=== PATIENT | male | born 1960 | race Caucasian/White ===

== ENCOUNTER → 2018-05-28 10:10 | Outpatient (CLI) | payer OTHER, MEDICAID, SELFPAY ==
--- NOTE | 2018-05-28 10:23 | DI.CT.S_ITS ---
PROCEDURE: CT ABDOMEN PELVIS WO/W CON INDICATIONS: BLADDER CANCER TECHNIQUE: After the administration of oral contrast, 5 mm thick sections acquired from the diaphragms to the iliac crests. After the administration of intravenous contrast, 5 mm thick sections acquired from the diaphragms to the symphysis. 5 mm thick coronal and sagittal reformats were acquired. For radiation dose reduction, the following was used: automated exposure control, adjustment of mA and/or kV according to patient size. COMPARISON: None. FINDINGS: Image quality: Excellent. ABDOMEN: Lung bases: Lung bases are clear. Heart size is normal. Solid organs: Liver is normal in size and enhancement. Gallbladder is unremarkable. Biliary system is non-dilated. Pancreas enhances normally. Spleen is normal in size and enhancement. No adrenal nodules. Both kidneys are normal in size. No hydronephrosis or nephrolithiasis. Low-density cystic lesions are present within the bilateral kidneys. Bowel and peritoneum: Stomach, small and large bowel loops are normal in caliber and wall thickness. The appendix is not visualized; however there is no discrete right lower quadrant fluid or fat stranding to suggest acute appendicitis. There are scattered sigmoid diverticula. No evidence for diverticulitis. No free fluid or air. Nodes and vessels: No retroperitoneal or mesenteric adenopathy by size criteria. Aorta and inferior vena are normal in caliber. There are scattered atheromatous calcifications throughout the aorta and iliac arteries bilaterally. Miscellaneous: No ventral hernias. PELVIS: Genitourinary: Bladder wall thickness is normal. Miscellaneous: No inguinal hernias or adenopathy. Surgical clips are present at the right inguinal region. Bones: No suspicious bony lesions. No vertebral body compression fractures. IMPRESSION: 1. Normal bladder wall thickness. No bladder mass lesions to suggest tumor recurrence. 2. No findings to suggest distant metastasis. 3. Diverticulosis. No diverticulitis. Dictated by: Ora Leahy M.D. on 05/28/2018 at 11:00 Approved by: Ora Leahy M.D. on 05/28/2018 at 11:05
== END ==
PROVIDERS: PCP Family Medicine; Visit Provider Urology
DX: C67.9 Malignant neoplasm of bladder, unspecified (principal); K57.30 Diverticulosis of large intestine without perforation or abscess without bleeding
CPT/HCPCS: 74178; Q9967

== ENCOUNTER → 2019-08-14 14:10 | Outpatient (CLI) | payer MEDICARE, MEDICAID, SELFPAY ==
--- NOTE | 2019-08-14 | DI.CT.S_ITS ---
PROCEDURE: CT ABDOMEN PELVIS WO/W CON INDICATIONS: HISTORY OF BLADDER CANCER TECHNIQUE: Optional 5 mm thick noncontrast images acquired from the diaphragm to the symphysis pubis. After the administration of intravenous contrast, 5 mm thick images acquired from the diaphragm to the symphysis pubis after a 10-minute delay. 2 mm thick coronal and sagittal reformats were then performed of the kidneys and ureters. For radiation dose reduction, the following was used: automated exposure control, adjustment of mA and/or kV according to patient size. COMPARISON: [facility], CT, CT ABDOMEN PELVIS WO/W CON, 05/28/2018, 10:16. FINDINGS: Image quality: Excellent. Lung bases: Lung bases are clear. Heart size is normal. Coronary artery calcifications. Urinary system: Both kidneys are normal in size, without hydronephrosis or nephrolithiasis on pre-contrast images. There is normal bilateral renal enhancement. No solid mass. Multiple simple renal cysts bilaterally. Large right peripelvic cyst measuring 6.2 cm. Renal calyces appear normal in morphology when filled with contrast. No ureteral filling defect identified within the opacified portions. The left ureter is asymmetrically larger compared to the right and the distal left ureter is attenuated, (5/103). There is a multi-loculated fluid collection in the presacral space posterior to the rectosigmoid junction measuring 4 x 2.4 x 1.6 cm, (6/39 and 3/161). There is a small amount of fluid at the posterior base of the bladder anterior to the colon, (6/37). The adjacent fat plane is effaced. Left base the bladder is thickened. These findings are new compared to the CT 05/28/2018. No bladder stone. No air in the urinary bladder. Other solid organs: Liver is normal in size. Subcentimeter hypodensities in the right lobe most likely a benign cyst or hemangioma. Question of hepatic steatosis. Gallbladder is unremarkable. Biliary system is non dilated. Pancreas enhances normally. Spleen is normal in size and enhancement. No adrenal nodules. Peritoneum and bowel: There is abnormal thickening of the upper rectum/sigmoid colon. Small adjacent diverticular abscess as described above. Moderate colonic diverticulosis. Nodes and vessels: No retroperitoneal or mesenteric adenopathy by size criteria. Aorta and inferior vena cava are normal in size. Abdominal wall: No ventral hernias. Pelvis: No pathologic free pelvic fluid. No inguinal hernias or adenopathy. Surgical clips in the right inguinal region. Trace left hydrocele seen. Bones: No suspicious bony lesions. No vertebral body compression fractures. IMPRESSION: 1. Multiloculated fluid collection adjacent to sigmoid colon diverticulitis concerning for abscess. Recommend followup colonoscopy when inflammatory changes decreased to exclude underlying mass. 2. The area of inflammation/fluid extends to the left base of the urinary bladder and the distal left ureter is attenuated. Dictated by: Sulaiman Gibson M.D. on 08/14/2019 at 15:00 Approved by: Sulaiman Gibson M.D. on 08/14/2019 at 15:18
== END ==
PROVIDERS: PCP Family Medicine; Visit Provider Urology
DX: Z08 Encounter for follow-up examination after completed treatment for malignant neoplasm (principal); Z85.51 Personal history of malignant neoplasm of bladder; I25.10 Atherosclerotic heart disease of native coronary artery without angina pectoris; N28.1 Cyst of kidney, acquired; K57.32 Diverticulitis of large intestine without perforation or abscess without bleeding
CPT/HCPCS: 74178; Q9967

== ENCOUNTER 2019-09-14 14:04 | Emergency (ER) | payer MEDICARE, MEDICAID, SELFPAY ==
[2019-09-14 14:25] VITALS: BP 167/109; PULSE 77; RESP 16; TEMP 37.1; O2SAT 98
[2019-09-14 14:38] LABS: Add Manual Diff / Slide Review NO; Basophils Absolute Auto 100 /uL (0-100); Basophils Percent Auto 0.6 % (0-2); Eosinophils Absolute Auto 100 /uL (0-450); Eosinophils Percent Auto 0.6 % (2-4); Hematocrit 42.1 % (41-53); Hemoglobin 14.1 g/dL (13.5-17.5); Lymphocytes Absolute Auto 2200 /uL (1100-4500); Lymphocytes Percent Auto 15.9 % (25-40); Mean Corpuscular HGB Conc 33.6 % (30-36); Mean Corpuscular Hemoglobin 28.5 PG (26-34); Mean Corpuscular Volume 84.9 fL (80-100); Monocytes Absolute Auto 1400 /uL (0-900); Monocytes Percent Auto 10.2 % (3-14); Neutrophils Absolute Auto 10100 /uL (1500-7000); Neutrophils Percent Auto 72.7 % (50-75); Platelet Count 229 X10^3/uL (150-400); Red Blood Cell Count 4.96 X10^6/uL (4.5-5.9); White Blood Cell Count 13.9 X10^3/uL (4.5-11.0)
[2019-09-14 14:49] LABS: Alanine Aminotransferase 14 IU/L (<50); Albumin 4.4 g/dL (3.5-5.0); Albumin Globulin Ratio 1.5 (1.0-2.8); Alkaline Phosphatase 72 U/L (38-126); Aspartate Aminotransferase 17 IU/L (17-59); BUN Creatinine Ratio 12.2 (6-22); Bilirubin Total 1.1 mg/dL (0.2-1.3); Blood Urea Nitrogen 11 mg/dL (9-20); Calcium 9.6 mg/dL (8.4-10.2); Carbon Dioxide 26 mmol/L (22-32); Chloride 103 mmol/L (98-107); Estimated Glomerular Filt Rate > 60.0 mL/min (>60); Globulin 2.9 g/dL (1.7-4.1); Glucose 97 mg/dL (70-100); HEMOLYSIS < 15 (0-50); Sodium 139 mmol/L (137-145); Total Protein 7.3 g/dL (6.3-8.2)
[2019-09-14 15:01] LABS: Bacteria Urine None Seen; WBC Urine None Seen (0-5/HPF)
--- NOTE | 2019-09-14 15:03 | DI.CT.S_ITS ---
PROCEDURE: CT ABDOMEN PELVIS W CON INDICATIONS: severe pelvic pain, hx diverticulitis, possible fistula TECHNIQUE: After the administration of oral and intravenous contrast, 5 mm thick sections acquired from the diaphragms to the symphysis. 5 mm thick coronal and sagittal reformats were performed. For radiation dose reduction, the following was used: automated exposure control, adjustment of mA and/or kV according to patient size. COMPARISON: [facility], CT, CT ABDOMEN PELVIS WO/W CON, 08/14/2019, 14:14. [facility], CT, CT ABDOMEN PELVIS WO/W CON, 05/28/2018, 10:16. [facility], CT, CT ABD PELVIS W&WO CON IVP, 04/18/2017, 9:21. [facility], CT, CT ABD PELVIS W&WO CON IVP, 04/27/2016, 9:24. FINDINGS: Image quality: Diagnostic. ABDOMEN: Lung bases: Lung bases are clear. Heart size is normal. Solid organs: The liver, spleen, pancreas, adrenals, and kidneys are unchanged. Cysts involving the right kidney are noted. The gallbladder is somewhat distended. Peritoneum and bowel: The stomach is unremarkable. The small bowel loops are nondilated. However, there is prominent thickening involving the wall of several small bowel loops within the mid abdomen at the level of the umbilicus with prominent edema within the adjacent mesentery. There continues to be markedly well thickening of the sigmoid colon with prominent edema within the adjacent soft tissues. The previously noted small loculated fluid collection within the presacral space along the superior aspect of the sigmoid colon probably has not significantly changed in size and measures approximately 2.3 x 1.9 x 2.5 cm. Extensive colonic diverticulosis is evident. Large amount of residual stool is seen within the more proximal aspects of the colon. No definite new loculated fluid collections are appreciated. Nodes and vessels: No retroperitoneal or mesenteric adenopathy. Aorta and inferior vena cava are normal in caliber. There is aortic and iliac artery atherosclerosis. Bones: No acute fracture or suspicious osseous lesion is identified. Moderate degenerative changes of the lumbar spine are present. PELVIS: Soft tissues: Mild wall thickening of the urinary bladder is incidentally noted, particularly near the fundal portion of the bladder. Edema is evident within the mesentery of the pelvis. There may be a small amount of free fluid. The small loculated fluid collection within the presacral space as described above and is similar to the prior study. No pelvic adenopathy is identified. However, reactive lymph nodes are present. Bones: No suspicious bony lesions. No acute pelvic fractures are identified. [id number] degenerative changes of the pelvic joints are noted. IMPRESSION: 1. Pronounced sigmoid diverticulitis is similar to the previous examination. When clinically appropriate, colonoscopy is recommended to exclude an underlying neoplasm of the colon. 2. Small loculated fluid collection adjacent to the sigmoid colon is similar in size and remains suspicious for a small abscess. No new fluid collections. Given its location within the pelvis, this would not be amenable to percutaneous aspiration. 3. Extensive mesenteric edema probably represents inflammation related to sigmoid diverticulitis. 4. Prominent wall thickening involving small bowel loops within the abdomen and pelvis at the level of the umbilicus is new since the prior study and suspicious for reactive enteritis. The possibility of a small fistula within this region cannot be excluded. 5. Constipation. 6. Wall thickening of the urinary bladder probably is reactive to inflammation of the abdomen and pelvis. Dictated by: Carlos A Barrios M.D. on 09/14/2019 at 14:36 Approved by: Carlos A Barrios M.D. on 09/14/2019 at 14:44
[2019-09-14 15:08] LABS: Culture Indicated Urine Cult Not Indicated; RBC Urine 1-5/HPF (0-5/HPF)
[2019-09-14] MEDS: levoFLOXacin 500 MG/100 ML PIGGYBACK 100 MG IV (15:20)
[2019-09-14] MEDS: SODIUM CHLORIDE 0.9% 1,000 ML 1000 ML IV (15:20)
[2019-09-14] MEDS: HYDROMORPHONE 0.5 MG INJ IV (15:20)
--- NOTE | 2019-09-14 15:55 | ED.ABDPAIN ---
HPI - Abdominal Pain General Chief Complaint: Abdominal Pain Stated Complaint: diverticulitis Time Seen by Provider: 09/14/19 14:05 Source: patient Mode of arrival: Ambulatory Limitations: no limitations History of Present Illness HPI narrative: 58-year-old male daily smoker with extensive history diverticulitis and remote history of bladder cancer presents with lower abdominal discomfort worsening over the past few days consistent with prior episodes of diverticulitis. He was recently seen for a scheduled outpatient follow-up with Urology whom did a cystoscopy and noted some abnormal texture to his bladder wall, a scan was ordered and he was then referred to general surgery. He was noted to have extensive diverticulitis and a fluid collection which may be a small abscess. He had been on antibiotics and doing largely well until a few days ago. He denies any fever chills, states his pain is worse with motion and improves with rest. He is tolerating food and drink without significant difficulty. MD complaint: abdominal pain Onset (ago): day(s) Pain Consistency: constant Location: suprapubic Severity: moderate Quality: cramping Radiation: none Migration to: no migration Exacerbating factors: movement Associated symptoms: denies other symptoms Related Data Previous Rx's Medication Instructions Recorded atorvastatin [Lipitor] 80 mg PO HS #90 tabs 05/12/17 lisinopril-hydrochlorothiazide 0 PO QDAY #45 tab 07/21/17 [Zestoretic] ciprofloxacin HCl [Cipro] 500 mg PO BID #20 tab 09/14/19 hydrocodone-acetaminophen 1 tab PO Q4-6H PRN #10 tab 09/14/19 metronidazole [Flagyl] 500 mg PO Q8H #30 tab 09/14/19 ondansetron HCl [Zofran] 4 mg PO Q6H PRN #20 tab 09/14/19 Allergies Allergy/AdvReac Type Severity Reaction Status Date / Time No Known Drug Allergies Allergy Verified 09/14/19 14:31 Review of Systems Constitutional Constitutional: Denies chills, Denies fatigue, Denies fever(s), Denies frequent falls, Denies lethargy and Denies weakness Eyes Eyes: Denies change in vision, Denies eye discharge, Denies irritation and Denies loss of vision ENT Ears, Nose, Mouth, and Throat: Denies change in voice, Denies dizziness, Denies neck pain, Denies sore throat and Denies throat swelling Cardiovascular Cardiovascular: Denies chest pain, Denies irregular heart rhythm, Denies lightheadedness, Denies palpitations, Denies dyspnea, Denies dyspnea on exertion and Denies orthopnea Respiratory Respiratory: Denies cough, Denies dyspnea, Denies dyspnea on exertion and Denies wheezing Gastrointestinal Gastrointestinal: Reports abdominal pain, Denies change in bowel habits, Denies diarrhea, Denies nausea and Denies vomiting Genitourinary Genitourinary: Denies hematuria, Denies flank pain, Denies urinary incontinence and Denies urinary urgency Musculoskeletal Musculoskeletal: Denies back pain, Denies muscle weakness, Denies neck pain, Denies numbness and Denies tingling Integumentary/Breasts Skin/Breast: Denies pruritus, Denies erythema, Denies rash and Denies wounds Neurologic Neurologic: Denies behavioral changes, Denies confusion, Denies dizziness, Denies frequent falls, Denies loss of vision, Denies numbness, Denies tingling and Denies weakness Psychiatric Psychiatric: Denies anxiety, Denies behavioral changes, Denies confusion, Denies depression, Denies homicidal ideation and Denies suicidal ideation Endocrine Endocrine: Denies fatigue, Denies flushing and Denies palpitations Hematologic/Lymphatic Hematologic/Lymphatic: Denies easy bruising Allergic/Immunologic Allergic/Immunologic: Denies urticaria, Denies throat swelling and Denies wheezing Patient History Medical History Diverticulitis (Acute) 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) Surgical History Hx of craniotomy (Acute) Status post appendectomy Status post transurethral resection of prostate Family History Brother Heart disease Hypertension High cholesterol Brother Heroin addiction Heart disease Hypertension High cholesterol Mental health problem Father Heart disease Hypertension High cholesterol Social History marital status: unknown household members: friend(s) occupational status: disabled Smoking Status: Current every day smoker alcohol intake: current substance use type: marijuana alcohol intake frequency: holidays/special occasions only Substance Use Type: marijuana Exam Narrative Exam Narrative: GENERAL: [58] year old patient appears stated age. Well-nourished, well-developed patient, in mild distress. HEAD: Atraumatic. Normocephalic. EYES: Pupils equal round and reactive. Extraocular motions intact. No scleral icterus. No injection or drainage. ENT: Nose without bleeding, purulent drainage. Throat without erythema, tonsillar hypertrophy or exudate. Airway patent. NECK: Trachea midline. Non tender CARDIOVASCULAR: Regular rate and rhythm without murmurs, gallops, or rubs. RESPIRATORY: Clear to auscultation. Breath sounds equal bilaterally. No wheezes, rales, or rhonchi. GASTROINTESTINAL: Abdomen soft, mild lower tenderness, nondistended. EXTREMITIES: No edema or joint tenderness. BACK: Nontender without deformity or crepitance. No flank tenderness. NEURO: AOx3. SKIN: No rash or erythema of visible areas Initial Vital Signs Initial Vital Signs: Vital Signs Temperature 98.7 F 09/14/19 14:25 Pulse Rate 77 09/14/19 14:25 Respiratory Rate 16 09/14/19 14:25 Blood Pressure 167/109 H 09/14/19 14:25 Pulse Oximetry 98 09/14/19 14:25 Course Course Course Narrative: CT today actually demonstrates some improvement over the last. The patient has been seen and evaluated at the bedside but General surgery (please see their note for complete details) and the plan is to treat conservatively with antibiotics and pain control with clear liquid diet as an outpatient until things calm down at which point a colonoscopy is appropriate. The patient understands the plan and is in complete agreement. He has been given return precautions and has had questions answered to his apparent satisfaction Orders Ordered: ED Orders 09/14/19 14:20 Complete Blood Count AUTO DIFF Stat Comprehensive Metabolic Panel Stat 09/14/19 14:49 Urine Microscopic Stat 09/14/19 15:03 CT abdomen pelvis w con Stat Discontinued Medications Hydrocodone Bitart/Acetaminophen (Vicodin Prepack) 1 bottle MISC SEEINSTR ONE Stop: 09/14/19 16:53 Last Admin: 09/14/19 17:06 Dose: 1 bottle Documented by: KBROTEM Hydromorphone HCl (Dilaudid) 0.5 mg IV NOW ONE Stop: 09/14/19 15:02 Last Admin: 09/14/19 15:20 Dose: 0.5 mg Documented by: KBROTEM Sodium Chloride (Normal Saline 0.9%) 1,000 mls @ 1,000 mls/hr IV BOLUS ONE Stop: 09/14/19 16:00 Last Admin: 09/14/19 15:20 Dose: 1,000 mls/hr Documented by: MICHAEL Levofloxacin (Levaquin) 500 mg in 100 mls @ 100 mls/hr IV NOW ONE Stop: 09/14/19 16:00 Last Infusion: 09/14/19 16:23 Dose: 0 mls/hr Documented by: Admin: 09/14/19 15:20 Dose: 100 mls/hr Documented by: MICHAEL Vital Signs Vital signs: Vital Signs - 8 hr 09/14/19 14:25 09/14/19 16:04 Temperature 98.7 F Pulse Rate 77 73 Respiratory Rate 16 Blood Pressure 167/109 H Blood Pressure [Left Arm] 149/97 H Pulse Oximetry 98 100 MDM - Abdominal Pain Lab Data Result diagrams: 09/14/19 14:20 09/14/19 14:20 Labs: Lab Results 09/14/19 09/14/19 09/14/19 Range/Units 14:20 14:20 14:49 WBC 13.9 H (4.5-11.0) X10^3/uL RBC 4.96 (4.5-5.9) X10^6/uL Hgb 14.1 (13.5-17.5) g/dL Hct 42.1 (41-53) % MCV 84.9 (80-100) fL MCH 28.5 (26-34) PG MCHC 33.6 (30-36) % RDW 16.0 H (11.6-14.8) % Plt Count 229 (150-400) X10^3/uL Neut % (Auto) 72.7 (50-75) % Lymph % (Auto) 15.9 L (25-40) % [place] % (Auto) 10.2 (3-14) % Eos % (Auto) 0.6 L (2-4) % Baso % (Auto) 0.6 (0-2) % Neut # (Auto) 59753 H (6430-9083) /uL Lymph # (Auto) 2200 (3971-2631) /uL [place] # (Auto) 1400 H (0-900) /uL Eos # (Auto) 100 (0-450) /uL Baso # (Auto) 100 (0-100) /uL Sodium 139 (137-145) mmol/L Potassium 4.0 (3.4-5.1) mmol/L Chloride 103 (98-107) mmol/L Carbon Dioxide 26 (22-32) mmol/L BUN 11 (9-20) mg/dL Creatinine 0.90 (0.66-1.25) mg/dL Estimated GFR > 60.0 (>60) mL/min BUN/Creatinine Ratio 12.2 (6-22) Glucose 97 (70-100) mg/dL Calcium 9.6 (8.4-10.2) mg/dL Total Bilirubin 1.1 (0.2-1.3) mg/dL AST 17 (17-59) IU/L ALT 14 (<50) IU/L Alkaline Phosphatase 72 (38-126) U/L Total Protein 7.3 (6.3-8.2) g/dL Albumin 4.4 (3.5-5.0) g/dL Globulin 2.9 (1.7-4.1) g/dL Albumin/Globulin Ratio 1.5 (1.0-2.8) Urine RBC 1-5/hpf (0-5/HPF) Urine WBC None seen (0-5/HPF) Urine Bacteria None seen (None) Ur Culture Indicated? Cult not indicated Point of care testing: Urine Dip Bedside Urine Glucose Negative Bedside Urine Bilirubin - Negative Bedside Urine Ketone - Negative Urine Specific [place] 1.010 Bedside Urine Occult Blood +/- Bedside Urine pH 6.0 Bedside Urine Protein - Negative Bedside Urine Urobilinogen - Negative Bedside Urine Nitrite - Negative Bedside Urine Leukocytes - Negative Esterase Imaging Data CT scan - abdomen: Radiologist's impression: [address] [address] [address] Scan Report Signed Patient: Francisco Garner WMR#: [id number] : [id number] Age/Sex: 58 / MDate of Service: 09/14/19 Loc: ED Accession Number: [id number] Procedure: CT abdomen pelvis w con Ordering Provider: Ricki Meier D.O. PROCEDURE: CT ABDOMEN PELVIS W CON INDICATIONS: severe pelvic pain, hx diverticulitis, possible fistula TECHNIQUE: After the administration of oral and intravenous contrast, 5 mm thick sections acquired from the diaphragms to the symphysis. 5 mm thick coronal and sagittal reformats were performed. For radiation dose reduction, the following was used: automated exposure control, adjustment of mA and/or kV according to patient size. COMPARISON: [facility], CT, CT ABDOMEN PELVIS WO/W CON, 08/14/2019, 14:14. [facility], CT, CT ABDOMEN PELVIS WO/W CON, 05/28/2018, 10:16. [facility], CT, CT ABD PELVIS W&WO CON IVP, 04/18/2017, 9:21. [facility], CT, CT ABD PELVIS W&WO CON IVP, 04/27/2016, 9:24. FINDINGS: Image quality: Diagnostic. ABDOMEN: Lung bases: Lung bases are clear. Heart size is normal. Solid organs: The liver, spleen, pancreas, adrenals, and kidneys are unchanged. Cysts involving the right kidney are noted. The gallbladder is somewhat distended. Peritoneum and bowel: The stomach is unremarkable. The small bowel loops are nondilated. However, there is prominent thickening involving the wall of several small bowel loops within the mid abdomen at the level of the umbilicus with prominent edema within the adjacent mesentery. There continues to be markedly well thickening of the sigmoid colon with prominent edema within the adjacent soft tissues. The previously noted small loculated fluid collection within the presacral space along the superior aspect of the sigmoid colon probably has not significantly changed in size and measures approximately 2.3 x 1.9 x 2.5 cm. Extensive colonic diverticulosis is evident. Large amount of residual stool is seen within the more proximal aspects of the colon. No definite new loculated fluid collections are appreciated. Nodes and vessels: No retroperitoneal or mesenteric adenopathy. Aorta and inferior vena cava are normal in caliber. There is aortic and iliac artery atherosclerosis. Bones: No acute fracture or suspicious osseous lesion is identified. Moderate degenerative changes of the lumbar spine are present. PELVIS: Soft tissues: Mild wall thickening of the urinary bladder is incidentally noted, particularly near the fundal portion of the bladder. Edema is evident within the mesentery of the pelvis. There may be a small amount of free fluid. The small loculated fluid collection within the presacral space as described above and is similar to the prior study. No pelvic adenopathy is identified. However, reactive lymph nodes are present. Bones: No suspicious bony lesions. No acute pelvic fractures are identified. [id number] degenerative changes of the pelvic joints are noted. IMPRESSION: 1. Pronounced sigmoid diverticulitis is similar to the previous examination. When clinically appropriate, colonoscopy is recommended to exclude an underlying neoplasm of the colon. 2. Small loculated fluid collection adjacent to the sigmoid colon is similar in size and remains suspicious for a small abscess. No new fluid collections. Given its location within the pelvis, this would not be amenable to percutaneous aspiration. 3. Extensive mesenteric edema probably represents inflammation related to sigmoid diverticulitis. 4. Prominent wall thickening involving small bowel loops within the abdomen and pelvis at the level of the umbilicus is new since the prior study and suspicious for reactive enteritis. The possibility of a small fistula within this region cannot be excluded. 5. Constipation. 6. Wall thickening of the urinary bladder probably is reactive to inflammation of the abdomen and pelvis. Dictated by: Carlos A Barrios M.D. on 09/14/2019 at 14:36 Approved by: Carlos A Barrios M.D. on 09/14/2019 at 14:44 Discharge Plan Departure Patient Disposition: Home Clinical Impression: Diverticulitis Discharge Date/Time: 09/14/19 17:14 Instructions: DI for Diverticulitis Activity Restrictions/Additional Instructions: 1. Drink plenty of fluids with frequent small sips. 2. For the next 24 hours a clear liquid diet is advised. After that please employ a brat diet which would include bananas, rice, apples, toast. 3. Please take medications as directed. 4. Please follow-up with your doctor in the next 1-2 days. Call the office for an appointment. 5. Please return to the emergency Department for any worsening or persistent symptoms, such as increasing pain or fever. Prescriptions: New hydrocodone-acetaminophen 5-325 mg tablet 1 tab PO Q4-6H PRN (Reason: pain) Qty: 10 RF: 0 ciprofloxacin HCl [Cipro] 500 mg tablet 500 mg PO BID Qty: 20 RF: 0 metronidazole [Flagyl] 500 mg tablet 500 mg PO Q8H Qty: 30 RF: 0 ondansetron HCl [Zofran] 4 mg tablet 4 mg PO Q6H PRN (Reason: nausea and vomiting) Qty: 20 RF: 0 No Action atorvastatin [Lipitor] 80 MG tablet 80 mg PO HS Qty: 90 RF: 1 lisinopril-hydrochlorothiazide [Zestoretic] 10 MG/12.5 MG tablet 0 PO QDAY Qty: 45 RF: 1 Referrals: Venessa Stevens MD [Physician] - Volodymyr Knight MD [Primary Care Provider] -
[2019-09-14 16:04] VITALS: BP 149/97; PULSE 73; O2SAT 100
[2019-09-14] MEDS: HYDROCODONE/ACET 5/325 PREPACK 1 BOTTLE MISC (17:06)
[2019-09-14 17:13] VITALS: BP 161/105; PULSE 65; RESP 18; O2SAT 100
== END 2019-09-14 17:14 | disposition home or self-care (01) ==
PROVIDERS: Emergency Provider Emergency Medicine; PCP Family Medicine
DX: K57.92 Diverticulitis of intestine, part unspecified, without perforation or abscess without bleeding (principal); R10.2 Pelvic and perineal pain
CPT/HCPCS: 36415; 74177; 80053; 81003; 81015; 85025; 96361; 96365; 96375; 99283; 99285; J1170; J1956; Q9967

== ENCOUNTER 2019-10-15 13:15 | Day surgery (SDC) | payer MEDICARE, MEDICAID, SELFPAY ==
[2019-10-15] MEDS: SODIUM CHLORIDE 0.9% 1,000 ML 200 ML IV (13:49)
[2019-10-15 13:52] VITALS: BP 154/99; PULSE 63; RESP 20; TEMP 36.3; O2SAT 100
[2019-10-15 13:53] VITALS: BMI 27.9
--- NOTE | 2019-10-15 14:31 | P.HP_ITS ---
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 He is here for colonoscopy to evaluate his colon prior to colovesicular fistula takedown surgery. He had a pain flare about 1 month ago for which he was given antibiotics, and has not had any pain for the last several weeks. He denies any debris or air in his urine. He denies any hematochezia or melena in the stool. He says he has significant pain with his bowel prep last evening, which presented as diffuse cramping abdominal pain, and resolved after the bowel prep was completed. ROS: Thirteen system review is negative other than as mentioned below and in HPI. PE: GENERAL: Well groomed and cooperative. Appears stated age. Answers questions promptly and appropriately. Vital signs noted. HENT: Normocephalic, atraumatic. Hearing intact. Oral mucosa is pink and moist. EYES: Conjunctiva pink, sclera white, no periorbital swelling. CARDIOVASCULAR: Regular rate. No pedal edema. RESPIRATORY: Non tachypneic, breathing comfortably on room air. GASTROINTESTINAL: Abdomen soft and non-distended GENITALURINARY: No flank tenderness. MUSCULOSKELETAL: Equal tone and mass bilaterally. SKIN: Warm, dry, soft, appropriate color for ethnicity. No other lesions, rashes, or wounds. NEURO: Alert and Oriented X 3. No gross sensory deficits, he does have short- term memory problems PSYCH: Appropriate affect and mood. Patient History Medical History (Updated 10/15/19 @ 14:33 by Venessa Stevens MD) Diverticulitis (Acute) 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) Surgical History Hx of craniotomy (Acute) Status post appendectomy Status post transurethral resection of prostate Family & Social History Family History Brother Heart disease Hypertension High cholesterol Brother Heroin addiction Heart disease Hypertension High cholesterol Mental health problem Father Heart disease Hypertension High cholesterol Social History: household members friend(s) Tobacco & Substance use: Smoking Status Current every day smoker alcohol intake current alcohol intake frequency holiday/special occasion Substance Use Type marijuana Meds Home Medications and Allergies Home Medications Medication Instructions Recorded Confirmed Type atorvastatin [Lipitor] 80 mg PO HS #90 tabs 05/12/17 10/15/19 Rx lisinopril-hydrochlorothiazide 10 - 12.5 tab PO DAILY 10/15/19 10/15/19 History Allergies Allergy/AdvReac Type Severity Reaction Status Date / Time No Known Drug Allergies Allergy Verified 09/14/19 14:31 Exam Vital Signs (past 8 hours): - 10/15/19 13:52 Temperature 97.4 F L Pulse Rate 63 Respiratory Rate 20 Blood Pressure 154/99 H Pulse Oximetry 100 Oxygen Delivery Method Room Air Assessment & Plan Assessment and plan (1) Short-term memory loss: Current visit: Yes Status: Acute (2) Diverticulitis: Current visit: No Status: Acute Assessment & Plan narrative: The risks and benefits of colonoscopy and possible polypectomy were discussed with the patient including specifically risk for perforation which is higher in his case due to his diverticulitis history and has 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 Risk of bleeding or need for additional procedures, and risks of anesthesia were discussed. The patient desires to proceed with his colonoscopy procedure. He states he has short-term memory difficulty and may not remember the specifics of this preprocedure discussion. Time Spent With Patient Time with patient: 15-24 minutes Quality VTE Deep Vein Thrombosis/Pulmonary Embolism Present on Admission: No
[2019-10-15] MEDS: MIDAZOLAM 5 MG/5 ML VIAL IV (14:35)
[2019-10-15] MEDS: fentaNYL 250 MCG/5 ML INJ IV (14:36)
--- NOTE | 2019-10-15 14:48 | PM.OP.ENDO ---
Operative Date/Time/Diagnoses Date of procedure: 10/15/19 Time of procedure: 14:48 Pre-op diagnosis: Sigmoid diverticulitis, colovesicular fistula Post-op diagnosis: same (Stenotic sigmoid colon, with chronic inflammation) Procedure & Clinicians Study performed: Colonoscopy to 30 cm Same procedure as scheduled: No (Exam was attenuated due to stenotic sigmoid colon and chronic inflammation) Indications: This is a patient with longstanding sigmoid diverticulitis and a suspected colovesicular fistula Surgeon: Venessa Stevens Procedure Notes SCOAP/Timeout: Performed Procedure in detail: The patient was brought to the room and placed in left lateral decubitus position with all bony prominences padded. A time-out was performed and then the patient was given procedural sedation starting with 4 mg of Versed and 100 mcg of fentanyl. Vitals were monitored throughout the procedure and remained stable. Once adequately sedated the procedure was begun. A rectal exam was performed revealing no abnormalities. The colonoscope was then introduced into the anal canal and advanced to the distal sigmoid colon. There was marked erythema and thickening of the mucosa of. I could not get adequate distention of the colon in order to traverse the lumen safely, due to acute on chronic diverticulitis. Due to the risk of perforation and the inability to progress, the procedure was stopped at this point. No polyps were seen in the rectum or distal sigmoid. The scope was then withdrawn from the rectum the procedure was concluded. The patient tolerated the procedure well was transferred to the PACU in stable condition. Scope withdrawal time: NA Sedation minutes: 10 Findings: diverticulitis, diverticulosis and stricture (Inflammatory stricture to acute on chronic diverticulitis) Specimen(s): none sent Complications: none Impression: Colon was impassable due to an acute on chronic diverticulitis Post-procedure Recommendations: Other recommendation (Patient will be scheduled for CT colonography) Follow up: as needed Disposition: PACU
[2019-10-15 14:54] VITALS: BP 166/107; PULSE 64; RESP 12; TEMP 37.1; O2SAT 94
[2019-10-15 15:00] VITALS: BP 145/96; PULSE 63; RESP 18; O2SAT 98
[2019-10-15 15:08] VITALS: BP 145/96; PULSE 60; RESP 16; TEMP 37.1; O2SAT 98
[2019-10-15 15:13] VITALS: BP 146/99; PULSE 64; RESP 17; O2SAT 98
[2019-10-15 15:28] VITALS: BP 161/94; PULSE 55; RESP 16; TEMP 36.6; O2SAT 99
== END 2019-10-15 15:40 | disposition home or self-care (01) ==
LOC: ENDO 13:17
PROVIDERS: PCP Family Medicine; Visit Provider Surgery
PROC: 0DJD8ZZ Inspection of Lower Intestinal Tract, Via Natural or Artificial Opening Endoscopic (ICD-10-PCS; CPT 45378; principal; 2019-10-15 14:30)
DX: K57.32 Diverticulitis of large intestine without perforation or abscess without bleeding (principal); F17.210 Nicotine dependence, cigarettes, uncomplicated; R41.3 Other amnesia; K56.600 Partial intestinal obstruction, unspecified as to cause; Z53.09 Procedure and treatment not carried out because of other contraindication
CPT/HCPCS: 45378; 99152; J2250; J3010

== ENCOUNTER 2019-12-24 14:13 | Day surgery (SDC) | payer MEDICARE, MEDICAID, SELFPAY ==
--- NOTE | 2019-12-24 | PATH_ITS ---
[facility] Accession Number: [id number] . 01 Material submitted: . PART A: duodenum - DUODENUM BIOPSY PART B: duodenum bulb - DUODENAL BULB POLYP PART C: gastrointestinal site - GASTRIC ANTRUM BIOPSY PART D: esophagus, E-G Junction - GE JUNCTION BIOPSY . 02 Diagnosis: A. Duodenum, Biopsy: Duodenal mucosa with gastric surface fovealar hyperplasia, consistent with peptic duodenitis. Negative for intraepithelial lymphocytosis or villous blunting. Negative for dysplasia or malignancy. . B. Duodenum, Bulb Polyp, Biopsy: Duodenal mucosa with gastric heterotopia. Negative for intraepithelial lymphocytosis. Negative for dysplasia or malignancy. . C. Stomach, Antrum, Biopsy: Antral mucosa with no diagnostic abnormality. Negative for Helicobacter by immunohistochemistry. Negative for intestinal metaplasia. Negative for dysplasia or malignancy. . D. Gastroesophageal Junction, Biopsy: Squamocolumnar junctional mucosa with no diagnostic abnormality. Negative for intestinal metaplasia. Negative for dysplasia and malignancy. . . [facility] 12/27/2019 1422 Local . 02 Electronically signed: . Mila Waggoner MD, Pathologist NPI- [id number] . 01 Gross description: . Part A: DUODENUM BIOPSY: Received in formalin is 1 fragment(s) of mack, soft tissue measuring 0.3 x 0.2 x 0.2 cm submitted entirely in 1 cassette(s) Part B: DUODENAL BULB POLYP: Received in formalin is 1 fragment(s) of mack, soft tissue measuring 0.3 x 0.2 x 0.1 cm submitted entirely in 1 cassette(s) Part C: GASTRIC ANTRUM BIOPSY: Received in formalin is 1 fragment(s) of mack, soft tissue measuring 0.3 x 0.2 x 0.2 cm submitted entirely in 1 cassette(s) Part D: GE JUNCTION BIOPSY: Received in formalin are 2 fragment(s) of mack, soft tissue measuring 0.3 x 0.2 x 0.1 cm to 0.2 x 0.2 x 0.1 cm submitted entirely in 1 cassette(s) /[facility] 12/25/2019 0446 Local . 02 Microscopic: . C. Immunohistochemical stain was performed to evaluate for Helicobacter organisms and is negative. The control stain showed appropriate reactivity. . D. An Alcian blue stain was performed to evaluate for intestinal metaplasia and is negative. The control stain showed appropriate reactivity. . * This test was developed and its performance characteristics determined by [facility]. It has not been cleared or approved by the U.S. Food and Drug Administration. The FDA has determined that such clearance or approval is not necessary. This test is used for clinical purposes. It should not be regarded as investigational or for research. . 02 Pathologist provided ICD-10: K21.9 . 02 CPT . 673659, 857863, 438856, 855032, 746352, K85817 Performed at: 01 [facility] [address] [place] [address], [place], [place] [id number] MD Kendrick Monique MD Phone: [phone] Performed at: 02 [facility] [address] [place], [place] [id number] MD Mila Waggoner MD Phone: [phone]
[2019-12-24] MEDS: SODIUM CHLORIDE 0.9% 1,000 ML 200 ML IV (14:26)
[2019-12-24 14:28] VITALS: BMI 27.9
[2019-12-24 14:36] VITALS: BP 148/98; PULSE 59; RESP 16; TEMP 36.9; O2SAT 98
[2019-12-24 14:38] VITALS: BMI 27.9
[2019-12-24 14:46] VITALS: BMI 27.9
--- NOTE | 2019-12-24 15:00 | PM.PREOP ---
Pre-operative Note Interval Note History & Physical reviewed/Exam performed by Physician: Yes Changes to H&P: No ASA Class (for procedural sedation): II
[2019-12-24] MEDS: LIDOCAINE 4% SOLN 50 ML 20 ML TOP (15:05)
[2019-12-24] MEDS: MIDAZOLAM 5 MG/ML VIAL 4 MG IV (15:15)
[2019-12-24] MEDS: fentaNYL 250 MCG/5 ML INJ IV (15:15)
--- NOTE | 2019-12-24 15:23 | PM.OP.ENDO ---
Operative Date/Time/Diagnoses Date of procedure: 12/24/19 Time of procedure: 15:23 Pre-op diagnosis: Epigastric pain, heartburn, belching Post-op diagnosis: other (Gastritis, gastric erosions, duodenal bulb polyp, no hiatal hernia) Procedure & Clinicians Study performed: Esophagogastroduodenoscopy, with cold forceps biopsies of duodenum, gastric antrum, duodenal bulb polyp, and GE junction Same procedure as scheduled: Yes Indications: Epigastric pain, heartburn, belching Surgeon: Venessa Stevens Procedure Notes SCOAP/Timeout: Performed Procedure in detail: The patient was brought to the room and placed in left lateral decubitus position with all bony prominences padded. A time-out was performed and then the patient was given procedural sedation starting with [4] mg of Versed and [100] mcg of fentanyl. A total of 5 mg of Versed, and 100 micro g of fentanyl were given for the entire procedure. Vitals were monitored throughout the procedure and remained stable. Once adequately sedated the procedure was begun. A Bite block was placed, protecting the teeth, lips, and tongue. The Gastroscope was passed through the bite block and over the tongue, and into the esophagus without incident. A tubular view of the esophagus was maintained as the scope was advanced down to the stomach. The scope was then advanced through the pylorus, and into the duodenal bulb. A flexed around to the 2nd part of the duodenum. The duodenum appeared fairly normal. Mucosal biopsies were taken. In the duodenal bulb there were several small polyp seen just at the verge of the pylorus. These were biopsied with cold forceps. I then retracted the scope into the stomach, and I saw evidence of gastritis, and several erosions in the gastric antrum consistent with multiple stages of healing ulcers. I biopsied this area. I then retroflexed and looked up into the cardia. There was no hiatal hernia. The hiatus was closed snugly around the scope. There was normal gastric rugae. No other abnormalities were seen in the stomach. Retracted the scope out into the esophagus, and there was a normal Z-line. There were no significant signs of esophagitis. I biopsied the distal esophagus. The crural pinch was seen at about 35 cm, as well as the Z-line. I then retracted the scope through the esophagus, which appeared fairly normal with intact shiny, squamous lining. The scope was then withdrawn from the mouth the procedure was concluded. The patient tolerated the procedure well and was transferred to the PACU in stable condition. Sedation minutes: 16 Findings: gastric ulcer, gastritis and polyp (Duodenal bulb) Specimen(s): other (Biopsies of duodenum, duodenal polyp, gastric antrum, GE junction) Complications: none Impression: Chronic appearing gastritis with multiple stages of healing ulcers, duodenal polyp Post-procedure Recommendations: Other recommendation (Follow-up depending on biopsy results) Follow up: as needed Disposition: PACU
[2019-12-24 15:28] VITALS: BP 110/74; PULSE 71; PULSE 72; RESP 16; TEMP 36.5; O2SAT 94
[2019-12-24 15:33] VITALS: BP 114/79; PULSE 75; RESP 16; O2SAT 95
[2019-12-24 15:38] VITALS: BP 110/80; PULSE 68; RESP 16; O2SAT 95
[2019-12-24 15:43] VITALS: BP 111/74; PULSE 65; RESP 21; O2SAT 94
[2019-12-24 15:48] VITALS: BP 113/82; PULSE 72; RESP 11; O2SAT 93
--- NOTE | 2019-12-24 17:41 | SUR.PHASEII ---
This author took over PH II care of this pt. approx. 1700, this pt. was understanding that he (the pt) would have colonoscopy and be able to take taxi to [employer] to get back to [facility]. where a friend would be waiting to pick him (the pt) up to take home. Dr. Stevens instructed pt to stay in pre-op area until 8pm at which time pt's friend would be here to crop picker and [place]. Pt. acknowledged to this author that that is just rideculous to have to stay until a friend could be here to take home, when I (the pt) am completely able to take my own taxi to [place] ferry. Informed shipyard painting supervisor of the above situation, fully aware of pt's feeling of staying, shipyard painting supervisor recommended we have the pt. sign AMA form if he should leave. 1740- Pt. wanting to go to cafeteria to eat then will sit out in waiting area near volunteer desk, this author had pt. sign AMA due to leaving this pre-op/PACU area, pt compliant with signing. This author did instruct pt to feel free to use volunteer phone to call into [facility] area if he (the pt) should need anything or ask a question.
== END 2019-12-24 17:40 | disposition home or self-care (01) ==
PROVIDERS: PCP Family Medicine; Referring Provider Surgery; Visit Provider Surgery
PROC: 0DJ08ZZ Inspection of Upper Intestinal Tract, Via Natural or Artificial Opening Endoscopic (ICD-10-PCS; CPT 43235; principal; 2019-12-24 15:15)
DX: K29.50 Unspecified chronic gastritis without bleeding (principal)
CPT/HCPCS: 43239; 99152; J2250; J3010

== ENCOUNTER 2020-01-15 07:45 | Inpatient (IN) | payer MEDICARE, MEDICAID, SELFPAY ==
[2020-01-13 09:56] VITALS: BMI 27.9
[2020-01-15] VITALS (16 sets, daily range): BP systolic 101–166; BP diastolic 66–107; PULSE 71–94; RESP 13–18; TEMP 36.5–37.6; O2SAT 91–99; BMI 27.4
--- NOTE | 2020-01-15 | PATH_ITS ---
[facility] Accession Number: [id number] . 01 Material submitted: . PART A: colon - RECTO-SIGMOID COLON PART B: small bowel - SMALL BOWEL . 01 Clinical history: . LAPAROSCOPICALLY ASSISTED COLECTOMY . 02 Diagnosis: A. Rectosigmoid Colon, Resection: Diverticulitis with pericolonic abscess and adhesions. Negative for dysplasia and malignancy. . B. Small Bowel, Resection: Small bowel with perienteric abscess, serositis, and adhesions. Negative for dysplasia and malignancy. [facility] 01/21/2020 1428 Local . 02 Electronically signed: . Mila Waggoner MD, Pathologist NPI- [id number] . 01 Gross description: . (A) Received in formalin, labeled recto-sigmoid colon (long stitch distal), is a partially opened segment of colon (length-12.5 cm, proximal diameter-4.2 cm, distal diameter-3.0 cm) containing a suture designating the distal end. The serosa is mack-pink, smooth, and shiny. The attached adipose tissue (up to 7.5 cm in depth) is bright yellow and focally irizarry-mack. The mucosa is mack with compact distorted folds containing diverticula. No nodules or masses are identified. A possible 1.0 x 0.7 x 0.4 cm lymph node is identified. The proximal resection margin is inked purple and the distal is blue. Section Code: (A1) proximal resection margin, promotions representative longitudinal sections; (A2) distal resection margin, promotions representative longitudinal sections; (A3-A6) promotions representative serial sections submitted proximal to distal; (A7) one bisected lymph node. (A8-A10) additional promotions representative sections. . (B) Received in formalin, labeled small bowel, is an unoriented segment of small bowel (length-7.5 cm, resection margins #1 and #2 diameters-2.4 cm) with attached adipose tissue (up to 1.7 cm in depth). The serosa is mack, smooth, and shiny with multiple adhesions. A suture is present custodial in between the resection margins with no orientation given. The mucosa is mack with normal folds. No nodules, masses, or lesions are identified. Resection margin #1 is inked purple and resection margin #2 is blue. A suture is located within the serosa 3.0 cm from resection margin #1 and 3.7 cm from resection margin #2. No orientation is given. Section Code: (B1) resection margin #1, promotions representative longitudinal section; (B2) resection margin #2, promotions representative longitudinal section; (B3-B7) promotions representative serial sections submitted from resection margin #1 to #2. ([id number]) /[facility] 01/21/2020 1429 Local . 02 Pathologist provided ICD-10: K57.20 . 02 CPT . 807987, 429031 Performed at: 01 [facility] [address] [id number] MD Kendrick Monique MD Phone: [phone] Performed at: 02 [facility] [address] [place] [id number] MD Mila Waggoner MD Phone: [phone]
--- NOTE | 2020-01-15 07:19 | PM.PREOP ---
Pre-operative Note Interval Note History & Physical reviewed/Exam performed by Physician: Yes Changes to H&P: No H&P completed within 30 days and has changed as indicated here:: There are no changes to history and physical examination scanned into file.
--- NOTE | 2020-01-15 08:26 | PM.PREOP ---
Pre-operative Note Interval Note History & Physical reviewed/Exam performed by Physician: Yes Changes to H&P: No
[2020-01-15] MEDS: LACTATED RINGERS 1,000 ML 42 ML IV ×4 (08:29→14:13)
[2020-01-15] MEDS: PIPERACILLIN-TAZO 3.375 GM/50 ML FROZ.PIGGY IV ×3 (08:45→20:29)
--- NOTE | 2020-01-15 09:55 | P.OP_ITS ---
Operative Date/Time/Diagnoses Date of procedure: 01/15/20 Time of procedure: 09:55 Pre-op diagnosis: 1. Complicated diverticulitis Post-op diagnosis: same Procedure & Clinicians Procedure: 1. Cystoscopy and placement bilateral localizing ureteral stents. Same procedure as scheduled: Yes Indications: Complicated diverticulitis Surgeon: Juliana Briggs Click Yes if Unassisted: Yes Anesthesia Type: General Operative Notes Findings: 1. Urethra-normal caliber throughout no lesions or stricture. 2. External sphincter coapted. 3. Prostate approximately 4 cm length with moderately obstructing lateral lobes. 4. Bladder-1+ trabeculation. Normal orifices bilaterally with clear efflux of urine. There is dependent mucous debris in the bladder base. There is an external mass effect located at the left posterior floor on the left. The overlying urothelium is erythematous and there is a central os visualized expelling additional mucoid debris. Intraoperative photographs were obtained. Closure Type: not applicable Specimen(s): none sent Applied: catheter Estimated Blood Loss (mL): 0 Blood products transfused: none Tourniquet time (min): 0 Procedure in detail: The patient was positioned supine and administered general anesthesia. He was then positioned in semi-lithotomy in the lower abdomen genitalia and groin were prepped and draped in sterile fashion. The 25 Belarusian panendoscope was then advanced into the lower urinary tract with the findings as described above. The labeled ureteral stent was then advanced through the double bridge and through this the Glidewire was advanced under direct visualization the left ureteral orifice was identified and the Glidewire was advanced proximally over this the ureteral stent was advanced. The same steps the maneuvers were performed on the right side and in this case the on labeled ureteral stent was positioned. Intraoperative photographs were obtained as mentioned above. The scope was then back loaded off the ureteral stents. The inner lumen dating fibers were then advanced into each of the ureteral catheters and secured in place with op site dressing. A 16 Belarusian Borden catheter was then inserted lower urinary tract balloon was filled with 10 cc and was placed to gravity drainage. They recur ureteral stents were then secured to the Borden catheter using an op site dressings. Dr. Live will then proceeded with her portion of the operative plan for the day. The details can be found in her operative report. Complications: none Post-operative Condition: stable Disposition: PACU Plan for aftercare: Acute Care. Follow up in my office in 6-8 weeks.
[2020-01-15] MEDS: ACETAMINOPHEN IV 1,000 MG/100 ML VIAL 400 MG IV (10:25)
[2020-01-15] MEDS: BUPIVACAINE 0.25% W/ EPI 30 ML VIAL 60 ML INJ ×2 (11:06→15:36)
[2020-01-15] MEDS: THROMBIN (RECOMBINANT) 5,000 UNIT VIAL 5000 UNIT TOP (14:12)
[2020-01-15] MEDS: BUPIVACAINE LIPOSOME 266 MG/20 ML VIAL INJ (14:13)
--- NOTE | 2020-01-15 16:37 | PM.OP.1 ---
Operative Date/Time/Diagnoses Date of procedure: 01/15/20 Time of procedure: 16:37 Pre-op diagnosis: chronic diverticulitis, colovesicular fistula Post-op diagnosis: other (Acute on chronic diverticulitis, pericolonic abscess, colo-enteric fistula, colovesicular fistula) Procedure & Clinicians Procedure: 1) Laparoscopic splenic flexure takedown 2) takedown of colo-enteric fistula 3) Small bowel resection with stapled side by side physiologic end to end anastomosis 4) Sigmoid colectomy 5) hand sewn colo colonic anastomosis in the pelvis 6) Diverting loop ileostomy 7) primary closure of abdominal wall 8) ileostomy pouch placement Same procedure as scheduled: Yes Indications: Acute on chronic diverticulitis, colovesicular fistula, coloenteric fistula, antibiotic dependence for chronic diverticulitis and colovesicular fistula Surgeon: Venessa Stevens Click Yes if Unassisted: No Anesthesia Type: General Operative Notes Findings: High splenic flexure; phlegmon with abscess in the left pelvis; tortuous rectum with obstructing valves; colovesicular fistula, small bowel adherent to colon with associated abscess colo-enteric fistula Specimen(s): other (Small bowel, sigmoid colon) Estimated Blood Loss (mL): 350 Blood products transfused: none
--- NOTE | 2020-01-15 17:05 | SUR.PHASEI ---
Jaw thrust upon admit to 1658 by Tristan Castro RN. Currently able to maintain airway/resp without further support. Resp even and regular.
--- NOTE | 2020-01-15 17:34 | SUR.PHASEI ---
labs drawn; pt arousable to voice, opened mouth for oral airway removal and returned to sleep. Resp even and regular, skin warm and dry. VSS
[2020-01-15 17:52] LABS: BUN Creatinine Ratio 10.4 (6-22); Blood Urea Nitrogen 15 mg/dL (9-20); Carbon Dioxide 21 mmol/L (22-32); Chloride 107 mmol/L (98-107); Estimated Glomerular Filt Rate 50.4 mL/min (>60); Glucose 171 mg/dL (70-100); HEMOLYSIS < 15 (0-50); Potassium 4.6 mmol/L (3.4-5.1); Sodium 139 mmol/L (137-145)
--- NOTE | 2020-01-15 18:11 | SUR.PHASEI ---
1754 to room 218, bed down and locked, call light within reach, report updated, dressing/binder remain CDI, small amount of reddish brown liquid in ostomy. Urine remains reddish/watermelon colored. QS in bag upon transfer (BATON TWIRLER will empty silverman). Pt on O2 at 2LNP, SCDs on, drowsy, talking with staff. Comfortable and voiced that he's happy with pain control. clothing and black bag taken to the room. Staff informed that labs are pending and that son was called by the surgeon. Stable.
--- NOTE | 2020-01-15 18:18 | PC.NURSE ---
Addendum entered by Nupur Doherty R.N. 01/16/20 01:22: Pt agreed to have wallet secured in hospital safe upon admission. Now with two RN's at bedside to manage this task, pt refuses to have wallet secured in safe. Addendum entered by Nupur Doherty R.N. 01/15/20 23:37: Noted tremors to BL UE's. Pt reports these have been present since I was 21. Addendum entered by Nupur Doherty R.N. 01/15/20 23:34: Repeatedly asks for something to drink. Ice chips provided, but patient spills these in bed often. Sips water with meds with NG clamped and then returned to lower intermittent suction 30-45 minutes post medication. Pt requests bed change as, my bed is all wet. Noted personal items on floor in room. Questioned pt about these items and pt replies, I have anger management issues. Pt is able to assist with turning in bed and repositioning. Head of bed elevated. Declines pillow to back of head. Oral swabs provided, cepacol lozenges. Ice returned to abdomen. Addendum entered by Nupur Doherty R.N. 01/15/20 22:34: Pt demonstrates short term memory loss which pt describes as r/t TBI. Pt also is calm, conversant, cooperative and immediately becomes belligerent. Pt was instructed to speak to staff with respect and is apologetic. Head of bed elevated and pt's bed turned as requests in room. NG off for gabapentin with sips water. Pt needs continual reminder of limitations on oral fluids as per surgeon's order. Pt has spilled ice several times in bed, but refuses to allow staff to change linen's stating, I just want to get to sleep. BL calf scd's in place. Ice to abdomen removed at this time. Borden to gravity with yates colored urine. States pain to abdomen 5/10 with movement or cough; otherwise denies pain. Room air 93%. Reminded again to splint abdomen with provided pillow. States cepacol lozenges very helpful to manage c/o sore throat. Addendum entered by Nupur Doherty R.N. 01/15/20 20:20: Pt fully awake and conversant. States abdominal pain increases with cough. Abdominal splinting reinforced. NG clamped x 30 minutes and pt given tylenol with sips water. Pt with frequent cough and complaining with NG tube. Dr. Baum contacted by telephone and orders for cepacol lozenges received. Original Note: Pt to room 218 drowsy, but rousable to voice. Denies pain, but admits to discomfort. Pillow provided to abdomen for splinting with pt's cough. Able to turn for skin inspection. Borden with yates red urine as per expected from WINDOWS AND DOORS INSTALLER. [address] Continuous pulse oximeter in place. Ice chips sparingly when awake enough to swallow safely. Head of bed elevated. Pt talking to self with eyes closed.
[2020-01-15] MEDS: SODIUM CHLORIDE 0.9% 1,000 ML 125 ML IV (18:36)
[2020-01-15] MEDS: FAMOTIDINE 20 MG/50 ML PIGGYBACK 200 MG IV (18:38)
[2020-01-15] MEDS: ACETAMINOPHEN 325 MG TABLET 650 MG PO (19:32)
[2020-01-15] MEDS: HYDROMORPHONE 0.5 MG INJ IV ×2 (19:33→23:00)
[2020-01-15] MEDS: BENZOCAINE/MENTHOL 1 LOZ PKT 1 EACH PO ×3 (20:24→23:37)
[2020-01-15] MEDS: SODIUM CHLORIDE 0.9% FLUSH 10 ML IV (20:25)
[2020-01-15] MEDS: GABAPENTIN 300 MG CAPSULE PO ×2 (21:40→22:03)
[2020-01-16] MEDS: FAMOTIDINE 20 MG/50 ML PIGGYBACK 200 MG IV ×3 (00:20→23:58)
[2020-01-16] MEDS: ACETAMINOPHEN 325 MG TABLET 650 MG PO ×5 (00:21→23:57)
[2020-01-16] MEDS: HYDROMORPHONE 0.5 MG INJ IV ×9 (00:49→20:32)
[2020-01-16] MEDS: BENZOCAINE/MENTHOL 1 LOZ PKT 1 EACH PO ×5 (01:26→10:56)
[2020-01-16] MEDS: PIPERACILLIN-TAZO 3.375 GM/50 ML FROZ.PIGGY IV ×4 (02:47→20:37)
[2020-01-16] MEDS: SODIUM CHLORIDE 0.9% 1,000 ML 125 ML IV ×2 (03:51→12:54)
[2020-01-16 05:00] VITALS: BP 146/94; PULSE 79; RESP 16; TEMP 37.2; O2SAT 97
[2020-01-16 05:22] LABS: Add Manual Diff / Slide Review NO; Basophils Absolute Auto 100 /uL (0-100); Basophils Percent Auto 0.3 % (0-2); Eosinophils Absolute Auto 0 /uL (0-450); Hematocrit 41.6 % (41-53); Hemoglobin 13.7 g/dL (13.5-17.5); Lymphocytes Absolute Auto 1500 /uL (1100-4500); Lymphocytes Percent Auto 7.5 % (25-40); Mean Corpuscular HGB Conc 33.1 % (30-36); Mean Corpuscular Hemoglobin 29.4 PG (26-34); Mean Corpuscular Volume 88.8 fL (80-100); Monocytes Absolute Auto 1500 /uL (0-900); Monocytes Percent Auto 7.7 % (3-14); Neutrophils Absolute Auto 16900 /uL (1500-7000); Neutrophils Percent Auto 84.5 % (50-75); Platelet Count 156 X10^3/uL (150-400); Red Blood Cell Count 4.68 X10^6/uL (4.5-5.9); Red Cell Distribution Width 15.8 % (11.6-14.8); White Blood Cell Count 19.9 X10^3/uL (4.5-11.0)
[2020-01-16 05:30] LABS: BUN Creatinine Ratio 16.5 (6-22); Blood Urea Nitrogen 23 mg/dL (9-20); Carbon Dioxide 26 mmol/L (22-32); Chloride 108 mmol/L (98-107); Estimated Glomerular Filt Rate 52.5 mL/min (>60); Glucose 133 mg/dL (70-100); HEMOLYSIS < 15 (0-50); Magnesium 1.9 mg/dL (1.6-2.3); Potassium 4.7 mmol/L (3.4-5.1); Sodium 139 mmol/L (137-145)
--- NOTE | 2020-01-16 06:42 | PC.NURSE ---
Did not sleep well last night, pain level 0 @ rest, but up to 8-10 when moving, coughing & deep breathing. Tylenol admin. & suction off for 35 mins. Denies any nausea, will cont. POC & monitor.
[2020-01-16] MEDS: MAGNESIUM SULFATE 2 GM/50 ML PIGGYBACK IV (07:38)
[2020-01-16] MEDS: LIDOCAINE PATCH 1 EACH ADH..PATCH TOP (08:38)
[2020-01-16] MEDS: SODIUM CHLORIDE 0.9% FLUSH 10 ML IV ×2 (08:39→20:33)
[2020-01-16 08:49] VITALS: BP 155/117; PULSE 82; RESP 18; TEMP 37.4; O2SAT 96
--- NOTE | 2020-01-16 11:40 | DIET.PN ---
Dietary Progress Note Assessment: Mr. Garner is a 59 yom with history of complicated diverticulitis s/p sigmoid colectomy. He reports moderate decrease in intake and weight loss. HT: 177.8 cm WT: 86.7kg UBW: 92kg %change: 6% (4mo) BMI: 27.4 MNA: 8 Juan: 17 Nutrition Diagnosis: Inadequate energy intake r/t GI complications aeb DX diverticulitis, pt report decreased PO's, unintentional weight loss of 6% in 4 mo. Interventions: 1. Follow ERAS protocol. Provide Ensure immunonutrition skakes twice daily. Provide Transitional diet until pt demonstrates tolerance to advance to regular diet. Diet Order: NPO EER: 2200 rachael @ 30cal/kg IBW; 95-110g @1.3-1.5 g/kg (post surg) Monitoring/Evaluations: weight, PO's, diet progression/tolerance Note: Pt was previously provide the above information with specific instructions on post-surgical nutrition care.
[2020-01-16 12:15] VITALS: BP 153/86; PULSE 63; RESP 18; TEMP 37.6; O2SAT 96
--- NOTE | 2020-01-16 12:22 | PM.PN.1 ---
Subjective Subjective Date Patient Seen: 01/16/20 Time Patient Seen: 12:22 Interval history: Pt says pain in his throat is severe, but abdominal pain is managed well. Has some hiccupping. Some thin stool in the ostomy bag. Exam Vital Signs (past 8 hours): - 01/16/20 05:00 01/16/20 08:49 Temperature 98.9 F 99.3 F Pulse Rate 79 82 Respiratory Rate 16 18 Blood Pressure 146/94 H 155/117 H Pulse Oximetry 97 96 Oxygen Delivery Method Nasal Cannula Oxygen Flow Rate 0 Narrative Exam Narrative: GENERAL: Alert, comfortable, hypervigilant HENT: NGT in place EYES: Conjunctiva pink, sclera white, no periorbital swelling. CARDIOVASCULAR: Regular rate. No pedal edema. RESPIRATORY: Non-tachypneic, breathing comfortably on room air. GASTROINTESTINAL: Abdomen soft and non-distended; appropriate TTP for POD#1, thin black fluid in the ostomy bag GENITALURINARY: No flank tenderness. Borden in place with pink urine in the bag MUSCULOSKELETAL: Equal tone and mass bilaterally. SKIN: Warm, dry, soft, appropriate color for ethnicity. No other lesions, rashes, or wounds. Objective Labs Result Diagrams: 01/16/20 05:00 01/16/20 05:00 Labs: Laboratory Results - last 24 hr 01/15/20 01/16/20 01/16/20 17:33 05:00 05:00 WBC 19.9 H RBC 4.68 Hgb 13.7 Hct 41.6 MCV 88.8 MCH 29.4 MCHC 33.1 RDW 15.8 H Plt Count 156 Neut % (Auto) 84.5 H Lymph % (Auto) 7.5 L [place] % (Auto) 7.7 Eos % (Auto) 0.0 L Baso % (Auto) 0.3 Neut # (Auto) 65969 H Lymph # (Auto) 1500 [place] # (Auto) 1500 H Eos # (Auto) 0 Baso # (Auto) 100 Sodium 139 139 Potassium 4.6 4.7 Chloride 107 108 H Carbon Dioxide 21 L 26 BUN 15 23 H Creatinine 1.44 H 1.39 H Estimated GFR 50.4 L 52.5 L BUN/Creatinine Ratio 10.4 16.5 Glucose 171 H 133 H Calcium 9.0 9.0 Magnesium 2.0 1.9 Assessment & Plan Assessment and plan (1) Essential hypertension: Problem details: Blood pressure is slightly elevated, we will watch it for now, and get pain better controlled. Current visit: No Status: None (2) Mild persistent asthma without complication: Problem details: RT consult, patient using incentive spirometer 10 times an hour Current visit: No Status: None (3) Tobacco abuse: Current visit: No Status: None (4) History of subarachnoid hemorrhage: Current visit: No Status: None (5) Short-term memory loss: Current visit: No Status: Acute (6) Colovesical fistula: Current visit: No Status: Acute (7) Malignant neoplasm of urinary bladder: Current visit: No Status: None (8) Diverticulitis: Current visit: No Status: Acute (9) S/P laparotomy: Current visit: Yes Status: Acute (10) Ileostomy in place: Problem details: Bessie Isaacs will see the patient and help him with learning ostomy care and setting him up with outpatient care. Current visit: Yes Status: Acute (11) Acute kidney injury: Problem details: Likely secondary to ureteral stents, prolonged surgery, and antibiotic. Keeping IV fluids going for now checking daily labs, reducing nephrotoxic agents. Will likely stop antibiotic tomorrow. Current visit: Yes Status: Acute Assessment & Plan narrative: Patient is postop day 1 from sigmoid colectomy, small-bowel resection, and diverting ileostomy creation for acute on chronic diverticulitis of the sigmoid colon with involvement of small bowel and bladder. I removed his NG tube during his exam today. We will continue sips of water and ice chips for now. He has a scant amount of thin black output in the bag, but not a lot of gas or any real stool. We will advance him to clears once he has some gas or real stool in the bag. His pain seems controlled well enough that he does not need an epidural. He felt much better once the NG tube was removed. His white count is 19, which is not uncommon after the type of surgery that he had. However, he had an abscess in the abdomen found during his surgery, so we will continue Zosyn until tomorrow. If his white count is improving will stop it tomorrow. He has some a KI, likely from the stents that he had in the ureters during surgery, with possible contribution from the antibiotic he is on. Plan: DVT prophylaxis, with heparin GI prophylaxis, with famotidine Continue Zosyn until tomorrow Ambulate 20 minutes t.i.d. Leave Borden in for now Daily labs Pain control with as needed and scheduled medications Time Spent With Patient Time with patient: 15-24 minutes Quality VTE Deep Vein Thrombosis/Pulmonary Embolism Present on Admission: No
--- NOTE | 2020-01-16 12:42 | CM.DANOTE ---
DCP Assessment: EMR reviewed: Patient is a 59 yr old male who was admitted for Urethral Stent placement preformed by Dr. Briggs and Lap Colectomy preformed by Dr. Stevens. CM/RN met with patient at the bedside and explained role. patient was alert and orientedx3 at time of Cm/Rn visit. Patient lives in a single level home with a roommate who helps patient with grocery shopping regularly and will be available to assist patient when he gets home. Cm/Rn spoke with patient about SNF or HH services when he D/C if he needs it. Patient was very frustrated at these suggestions and refused both SNF and HH services when he leaves and states I will Be fine. Patient states he is Independent with all ADL's and Drives at baseline. Patient was obviously frustrated at time of Cm/RN visit. Patient was yelling and Cm/Rn asked if there was anything Cm/ RN could do to help with patients frustrations. Patient stated that I would like better care. Patient stated he was frustrated that he wasn't getting enough water to drink and enough throat lozenges to take care of his pain. patient was frustrated that it took the nurse 15min to get him a throat lozenge CM/RN talked with patient for an extended time explaining the difficulty the nursing staff have at getting patients medication and things at the exact moment they are asked for them since they have a few patients per nurse. Patient stated understanding and seemed to calm down. Patient then informed CM/Rn that he has had previous Frontal lobe TBI and it has affected his emotions and his ability to control his temper and stated he says exactly what he thinks when he thinks it. He then apologized for his attitude earlier. I: Medicare and medicaid Plan: D/C Home with roommate when medically stable. No identified D/C planning needs noted at this time. Cm department will continue to follow patient and assist with any new D/C planning needs that may arise. Kiley Weir RN Discharge Planning/Care Management CM Discharge Assessment Start: 01/16/20 12:39 Freq: Status: Active Protocol: Document 01/16/20 12:39 HS (Rec: 01/16/20 12:42 HS [id number]) Discharge Planning Assessment Assigned Plant Electrician Kiley Weir RN DPOA/Assigned Designee Name Pascual Jasso (son) Contact Information [phone] Advance Directives? No History Provided By Patient,Medical Record Has Patient been admitted in last 30 No days? Prior Living Arrangements House Household Members friend(s) Type of transporation used prior to Drives own vehicle admit Independent with ADL's Yes Is patient alert and oriented? Yes Caregiver for Another No Discharge Plan Home Additional Comment Patient stated he doesnt want any services to help at home. no HH and not going to a SNF. Whiteboard Updated in Patient Room with Yes name and ext. # of Plant Electrician Review Status In Process Next Review Type Continued Stay Review Pre-Anesthesia Assessment Start: 01/13/20 09:56 Freq: Status: Active Protocol: Document 01/13/20 09:56 CAB (Rec: 01/13/20 10:30 CAB [id number]) Pre-Anesthesia Assessment PAC Comment Currently smoking approx 1/2 PPD Preferred Name Rodrigue Patient Information Reviewed Via Phone Assessment Assessment Completed With Patient Primary Care Provider Volodymyr Knight Seen Specialist in Last 12 Months Yes Specialist Seen Emergency,General surgeon, Urologist Comment Flown to [facility] within last month r/t severe headaches, abdominal pain Primary Language Filipino Height 177.8 cm Weight 88.451 kg Body Mass Index (BMI) 27.9 Hearing Ability Normal Visual Assist Magnifying Glass Dentition Type Teeth, Natural Present Barriers to Learning Memory Comment Intermittent memory loss r/t TBI Hx Anesthesia Reactions Yes: I wake up sooner than I should Hx Family Anesthesia Reaction No Hx Malignant Hyperthermia No Hx Blood Transfusions No Hx Blood Transfusion Reaction No Anesthesia Review Requested No alcohol intake current alcohol intake frequency holidays/special occasions only Alcohol Intake Frequency Other: No alcohol in last year Smoking Status Current every day smoker Tobacco type cigarettes Smoking packs per day 0.5 Substance Use Type marijuana Comment Pt advised pt not to smoke 24 hours prior to surgery Musculoskeletal Symptoms Back Pain History of Falling (Recent or History of No ) Patient is completely paralyzed or No completely immobile Mental Status Oriented to own ability Is patient on oxygen? No Does patient have DOTSON/SOB Yes: Occasional sob w/short walks, feels to deconditioning Hx Sleep Apnea No CPAP/BIPAP use not prescribed Currently Taking a Beta Anne No Can You Climb a Flight of Stairs Without No SOB Hx Chest Pain No Hx SOB Yes: Occasional sob w/short walks, feels to deconditioning Hx Syncope or Dizziness No Anti-Coagulant Therapy No Has a Sales Operations Coordinator No Cardiac Testing No Hx Pacemaker/ICD No Pacemaker Rep Required? No Cardiac Clearance Received Not Applicable Diet Type At Home Regular,Other dysphagia No Gastrointestinal Symptoms Hemorrhoids,Reflux Comment High protein diet in prep for surgery Bladder Pattern Frequency,Incontinent,Urgency Urinary Catheter Present No Hx Urinary Self Catheterization No Diabetes No Hx Drug Resistant Organism No Presence of External or Internal Medical Yes: clip in forehead after Devices aneyrsm Have you had any close contact with No someone diagnosed with COVID-19? Evaluation/Screening for possible COVID- Yes 19 infection completed? Marital Status / Lives With friend(s) Prior Living Arrangements House Number of Floors (Floors) One Floor Support System Child/Children,Friend(s) Does the Patient Have Assistance After Yes: Son will stay w/pt @ [facility] to assist w/care Comment Pt advised 3-5 day length of stay per surgeon Feels Safe in Current Environment Yes Been Physically Hurt or Threatened By a No Person in Current Environment Do you have thoughts of harming yourself None or others? Are you currently considering suicide? No Do you have a plan to hurt yourself or No Plan others? Do You Have Any Spiritual Beliefs That No May Affect Your HC Choices? Do You Have Any Cultural Practices That No May Affect Your HC Choices? Who Can We Speak to About Patient's Care Family, friends Identifying Code for Release of Patient Declines to issue Information Health Care Proxy/Next of Kin Zane shafer) Health Care Proxy Emergency Contact Name Zane shafer) Emergency Contact Advance Directives? No Power of Shearer Screen Measurer And Trimmer Yes Power of Shearer Screen Measurer And Trimmer Name Zane shafer) Power of Shearer Screen Measurer And Trimmer PAC Instructions Durable medical equipment, Medications to take/avoid,No ETOH/petroleum product on skin DOS,NPO,Post-op transportation,Pre-op antibiotic,Pre-surgical wash, Sturdy shoes/comfortable clothes,Do not bring valuables and remove jewelry
[2020-01-16] MEDS: GABAPENTIN 300 MG CAPSULE PO ×2 (15:05→20:32)
--- NOTE | 2020-01-16 15:38 | PC.NURSE ---
NG tube was discontinued by Dr. Stevens on her rounds this morning. Patient tolerated well, and feels a lot relief once removed. States abdominal pain has been well managed with prn IV dilaudid. Ileostomy is draining small amounts of brown liquid, no gas noted. Abdominal binder in place for comfort, and patient educated on IS use and splinting. Patient using IS independently every hour, 10 times upto 3000. Midline incision with dressing remains intact. Borden in place draining pink urine, patient denies bladder pain or spasm. Call light within reach, continue with plan of care.
[2020-01-16 15:50] VITALS: BP 150/91; PULSE 65; RESP 20; TEMP 37.3; O2SAT 96
[2020-01-16 19:56] VITALS: BP 140/97; PULSE 64; RESP 20; TEMP 37.4
[2020-01-16] MEDS: HEPARIN 5,000 UNIT/ML VIAL 5000 UNIT SUBCUT (20:32)
[2020-01-16] MEDS: HYDROMORPHONE 1 MG INJ IV (22:39)
--- NOTE | 2020-01-16 23:20 | PC.NURSE ---
Evening Shift Note- Call MD regaurding pain medications. Increased PRN IV Dilaudid 1mg from Q4H to Q2H. Lorazepam 0.5mg PO Q4H PRN also ordered for anxiety/sleep. Orders entered.
[2020-01-16] MEDS: LORazepam 0.5 MG TABLET PO (23:57)
[2020-01-17] VITALS: BP 148/93; PULSE 64; RESP 18; TEMP 36.6; O2SAT 96
[2020-01-17] MEDS: PIPERACILLIN-TAZO 3.375 GM/50 ML FROZ.PIGGY IV ×2 (03:03→08:31)
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
[2020-01-17 05:45] LABS: Add Manual Diff / Slide Review NO; Basophils Absolute Auto 0 /uL (0-100); Basophils Percent Auto 0.3 % (0-2); Eosinophils Absolute Auto 100 /uL (0-450); Eosinophils Percent Auto 0.7 % (2-4); Hematocrit 34.4 % (41-53); Hemoglobin 11.3 g/dL (13.5-17.5); Lymphocytes Absolute Auto 2200 /uL (1100-4500); Lymphocytes Percent Auto 17.9 % (25-40); Mean Corpuscular HGB Conc 32.9 % (30-36); Mean Corpuscular Hemoglobin 29.4 PG (26-34); Mean Corpuscular Volume 89.4 fL (80-100); Monocytes Absolute Auto 1300 /uL (0-900); Monocytes Percent Auto 10.4 % (3-14); Neutrophils Absolute Auto 8800 /uL (1500-7000); Neutrophils Percent Auto 70.7 % (50-75); Platelet Count 125 X10^3/uL (150-400); Red Blood Cell Count 3.85 X10^6/uL (4.5-5.9); Red Cell Distribution Width 16.1 % (11.6-14.8); White Blood Cell Count 12.4 X10^3/uL (4.5-11.0)
[2020-01-17 06:11] LABS: BUN Creatinine Ratio 23.9 (6-22); Blood Urea Nitrogen 28 mg/dL (9-20); Calcium 8.8 mg/dL (8.4-10.2); Carbon Dioxide 26 mmol/L (22-32); Chloride 107 mmol/L (98-107); Estimated Glomerular Filt Rate > 60.0 mL/min (>60); Glucose 91 mg/dL (70-100); HEMOLYSIS < 15 (0-50); Magnesium 2.2 mg/dL (1.6-2.3); Potassium 4.3 mmol/L (3.4-5.1); Sodium 137 mmol/L (137-145)
[2020-01-17] MEDS: HYDROMORPHONE 1 MG INJ IV ×2 (06:13→08:31)
--- NOTE | 2020-01-17 06:25 | PC.NURSE ---
QUALITY ASSURANCE LEAD note: walked in at 0550 to do vital signs on patient. Patient refused I want to fucking sleep. I asked so you're refusing vitals? Yes! I'm fucking refusing. Patient had pillow over face. I'm never getting any fucking sleep here. I left room and went to report to RN. Then I heard the bed alarm going off. Patient is standing with SCDs plugged into the machine, IV in, Silverman catheter attached to bed. Patient is trying to move in room. I asked what he was doing. I want to fucking get out of here. He then moved around the room, still attached to SCDs, not allowing me to take them off or unplug them. I reminded him he still had a silverman and an IV. Then take them out. I told him I wasn't a nurse and I couldn't, but why doesn't he sit down and let the nurse take it out. I want to go fucking home. I can take it out. I warned him that wasn't advisable. Patient let me take off the SCDs. I just haven't got any fucking sleep, man. You guys aren't letting me get any fucking sleep. He continued to swear at me, his voice was near a yell- it was loud. Patient got back into bed after multiple times reminding him he should. Stop fucking trying to turn me around! He was upset that I was trying to move him so he didn't trip on him silverman tube. He swatted at me when I tried to. I got him in bed, bed alarm on, alerted the RN about his behavior.
[2020-01-17] MEDS: SODIUM CHLORIDE 0.9% 1,000 ML 125 ML IV (06:28)
[2020-01-17 08:00] VITALS: BP 185/115; PULSE 76; RESP 20; TEMP 37.3; O2SAT 96
[2020-01-17] MEDS: GABAPENTIN 300 MG CAPSULE PO ×3 (08:31→20:36)
[2020-01-17] MEDS: HEPARIN 5,000 UNIT/ML VIAL 5000 UNIT SUBCUT ×2 (08:31→20:36)
[2020-01-17] MEDS: LIDOCAINE PATCH 1 EACH ADH..PATCH TOP (08:32)
[2020-01-17] MEDS: ACETAMINOPHEN 325 MG TABLET 650 MG PO (08:32)
[2020-01-17] MEDS: SODIUM CHLORIDE 0.9% FLUSH 10 ML IV ×2 (08:32→20:37)
--- NOTE | 2020-01-17 11:25 | P.PN_ITS ---
Exam Vital Signs (past 8 hours): - 01/17/20 08:00 Temperature 99.2 F Pulse Rate 76 Respiratory Rate 20 Blood Pressure 185/115 H Pulse Oximetry 96 Oxygen Delivery Method Room Air Oxygen Flow Rate 0 Narrative Exam Narrative: GENERAL: Alert, comfortable, hypervigilant; perseverating; pressured speech EYES: Conjunctiva pink, sclera white, no periorbital swelling. CARDIOVASCULAR: Regular rate. No pedal edema. RESPIRATORY: Non-tachypneic, breathing comfortably on room air. GASTROINTESTINAL: Abdomen soft and non-distended; appropriate TTP for POD#2, copious thin black fluid in the ostomy bag GENITALURINARY: No flank tenderness. Silverman in place with clear yellow urine in the bag MUSCULOSKELETAL: Equal tone and mass bilaterally. SKIN: Warm, dry, soft, appropriate color for ethnicity. No other lesions, rashes, or wounds. Objective Labs Result Diagrams: 01/17/20 05:05 01/17/20 05:05 Labs: Laboratory Results - last 24 hr 01/17/20 01/17/20 05:05 05:05 WBC 12.4 H RBC 3.85 L Hgb 11.3 L Hct 34.4 L MCV 89.4 MCH 29.4 MCHC 32.9 RDW 16.1 H Plt Count 125 L Neut % (Auto) 70.7 Lymph % (Auto) 17.9 L [place] % (Auto) 10.4 Eos % (Auto) 0.7 L Baso % (Auto) 0.3 Neut # (Auto) 8800 H Lymph # (Auto) 2200 [place] # (Auto) 1300 H Eos # (Auto) 100 Baso # (Auto) 0 Sodium 137 Potassium 4.3 Chloride 107 Carbon Dioxide 26 BUN 28 H Creatinine 1.17 Estimated GFR > 60.0 BUN/Creatinine Ratio 23.9 H Glucose 91 Calcium 8.8 Magnesium 2.2 Assessment & Plan Assessment and plan (1) Essential hypertension: Problem details: Blood pressure is slightly elevated, we will watch it for now, and continue with management of pain and anxiety Current visit: No Status: None (2) Mild persistent asthma without complication: Problem details: RT consult, patient using incentive spirometer 10 times an hour Current visit: No Status: None (3) Tobacco abuse: Current visit: No Status: None (4) History of subarachnoid hemorrhage: Current visit: No Status: None (5) Short-term memory loss: Current visit: No Status: Acute (6) Colovesical fistula: Problem details: Pt will go home with leg bag. Current visit: No Status: Acute (7) Malignant neoplasm of urinary bladder: Current visit: No Status: None (8) Diverticulitis: Current visit: No Status: Acute (9) S/P laparotomy: Current visit: Yes Status: Acute (10) Ileostomy in place: Problem details: Bessie Isaacs will see the patient and help him with learning ostomy care and setting him up with outpatient care. Dispo pending teaching is complete and supplies are set up for home. Current visit: Yes Status: Acute (11) Acute kidney injury: Problem details: Improving. Will cut down fluids, keep silverman for now. Current visit: Yes Status: Acute Assessment & Plan narrative: Patient is postop day 2 from sigmoid colectomy, small-bowel resection, and diverting ileostomy creation for acute on chronic diverticulitis of the sigmoid colon with involvement of small bowel and bladder. Ostomy output volume is high. Will advance to full liquids, add metamucil, and cut down on IV fluids. Plan: DVT prophylaxis, with heparin GI prophylaxis, with famotidine Continue Zosyn until tomorrow Ambulate 20 minutes t.i.d. Leave Silverman in for now -- will go home with leg bag Daily labs Pain control with as needed and scheduled medications ADAT to fulls add metamucil ostomy teaching dispo planning Time Spent With Patient Time with patient: 15-24 minutes Quality VTE Deep Vein Thrombosis/Pulmonary Embolism Present on Admission: No
[2020-01-17] MEDS: FAMOTIDINE 20 MG/50 ML PIGGYBACK 200 MG IV (12:20)
[2020-01-17] MEDS: OXYCODONE IR 10 MG TABLET PO ×3 (12:20→20:46)
[2020-01-17] MEDS: PSYLLIUM HUSK 1 PACKET PO ×2 (12:20→20:36)
--- NOTE | 2020-01-17 12:22 | PC.NURSE ---
Ostomy Nurse Consult Note Francisco in bed as Dr. Stevens and I rounded on him. Dr. Stevens removed in incisional dressing, bennie dry and intact without redness. will increase his diet to full liquids and will plan for discharge tomorrow depending on how he is doing tolerating his increased diet and ostomy teaching. Francisco did great with the ostomy teaching. He did explain to me that he had a left frontal lobe aneurysm several years ago and this would help to explain some of his inappropriate behavior such as throwing things at staff. He was very pleasant during my teaching and appliance change session with him today and he explained that he does have some behavioral issue. His stoma measures 28mm, beefy red, moist and has the stoma bridge in place. His peristomal skin is intact. It is about 1/2 inch above the skin level and does have some crease in the 3 and 9:00 position. I placed him in a moldable two piece 45mm Convex wafer with clear appliance. I think he will do very well in a one piece convex appliance and will order him samples. I will also give him supplies tomorrow for going home. We reviewed the [employer] New Patient guide, reviewed food blockage, reviewed measuring a stoma on a model and he molded and cut an appliance to fit around the model. We reviewed the crusting technique as well as ileostomy anatomy and the importance of hydration. I will return tomorrow morning to go over teaching again with him and his son Zane. Francisco does have a roommate that he said is helpful and Francisco has had a roommate since his aneurysm to help him around the house. He said his son Zane is also very helpful as well as his daughter in-law. I will return tomorrow morning.
[2020-01-17 13:40] VITALS: BP 154/110; PULSE 82; RESP 20; TEMP 37.7; O2SAT 95
[2020-01-17] MEDS: TAMSULOSIN 0.4 MG CAPSULE PO (14:16)
[2020-01-17] MEDS: ACETAMINOPHEN 325 MG TABLET 975 MG PO ×2 (14:16→20:34)
--- NOTE | 2020-01-17 14:34 | PC.NURSE ---
Day Shift Pt reports that pain is tolerable while sitting in bed but increases with coughing or movement. Explained to pt that is normal. Started shift with medicating pt with IV dilaudid, pt transitioned to full liquid diet and started on PO oxycodone. Pt attempted to empty his own ostomy once this shift. It was already leaking and pt got stuck in cords and lines. Explained to pt that he needed to call for help. this was the only time pt became short with me, otherwise he was very pleasant this shift. Ostomy and wafer had to be changed. 150 ml dark brown liquid stool output. Stoma is beefy red and bar in place.
[2020-01-17 16:47] VITALS: BP 155/95; PULSE 71; RESP 16; TEMP 36.7; O2SAT 98
[2020-01-18] MEDS: FAMOTIDINE 20 MG/50 ML PIGGYBACK 200 MG IV ×3 (00:03→23:47)
[2020-01-18 00:05] VITALS: BP 149/102; PULSE 84; RESP 20; TEMP 37.6; O2SAT 96
[2020-01-18] MEDS: LORazepam 0.5 MG TABLET PO ×2 (00:12→23:52)
[2020-01-18] MEDS: OXYCODONE IR 10 MG TABLET PO ×6 (00:44→22:20)
--- NOTE | 2020-01-18 06:03 | PC.NURSE ---
Pt calm and cooperative with shift. Medicated with Ativan with good effect, patient reports getting sleep this am. Had Ostomy wafer breakdown and leak, changed full set up with 45mm moldable wafer and reattachable bag. Pt very knowledgeable about set up and assisted. Pt reports that Bessie will be back today for more teaching.
[2020-01-18 08:00] VITALS: BP 137/94; PULSE 78; RESP 20; TEMP 37.1; O2SAT 96
[2020-01-18] MEDS: TAMSULOSIN 0.4 MG CAPSULE PO (08:49)
[2020-01-18] MEDS: LIDOCAINE PATCH 1 EACH ADH..PATCH TOP (08:49)
[2020-01-18] MEDS: GABAPENTIN 300 MG CAPSULE PO (08:49)
[2020-01-18] MEDS: PSYLLIUM HUSK 1 PACKET PO ×2 (08:49→22:17)
[2020-01-18] MEDS: ACETAMINOPHEN 325 MG TABLET 975 MG PO ×3 (08:50→22:18)
[2020-01-18] MEDS: HEPARIN 5,000 UNIT/ML VIAL 5000 UNIT SUBCUT ×2 (08:50→22:16)
[2020-01-18 09:41] LABS: Add Manual Diff / Slide Review NO; Basophils Absolute Auto 100 /uL (0-100); Basophils Percent Auto 0.6 % (0-2); Eosinophils Absolute Auto 200 /uL (0-450); Eosinophils Percent Auto 1.8 % (2-4); Hematocrit 39.2 % (41-53); Hemoglobin 13.1 g/dL (13.5-17.5); Lymphocytes Absolute Auto 1900 /uL (1100-4500); Mean Corpuscular HGB Conc 33.3 % (30-36); Mean Corpuscular Hemoglobin 29.6 PG (26-34); Mean Corpuscular Volume 88.9 fL (80-100); Monocytes Absolute Auto 1000 /uL (0-900); Monocytes Percent Auto 9.8 % (3-14); Neutrophils Absolute Auto 7400 /uL (1500-7000); Neutrophils Percent Auto 69.8 % (50-75); Platelet Count 140 X10^3/uL (150-400); Red Blood Cell Count 4.41 X10^6/uL (4.5-5.9); Red Cell Distribution Width 15.5 % (11.6-14.8); White Blood Cell Count 10.7 X10^3/uL (4.5-11.0)
[2020-01-18 09:51] LABS: BUN Creatinine Ratio 15.6 (6-22); Blood Urea Nitrogen 17 mg/dL (9-20); Calcium 9.5 mg/dL (8.4-10.2); Carbon Dioxide 27 mmol/L (22-32); Estimated Glomerular Filt Rate > 60.0 mL/min (>60); Glucose 141 mg/dL (70-100); Magnesium 2.1 mg/dL (1.6-2.3); Potassium 3.9 mmol/L (3.4-5.1); Sodium 136 mmol/L (137-145)
[2020-01-18 10:15] LABS: Chloride 102 mmol/L (98-107); HEMOLYSIS 20 (0-50)
--- NOTE | 2020-01-18 10:45 | CM.DPC ---
Addendum entered by BELLA Reilly 01/18/20 14:48: ADD: mixer wet pour Bessie completed bedside teaching with pt and son and confirmed that son plans to stay a few days with pt at d/c before going back home to [facility]. Son and pt did well with teaching today and RN Bessie provided enough supplies to last the pt a few weeks with plan to either call her or come to the clinic for follow up and has ordered supplies from vendor for the pt after these initial supplies are depleted. No concerns with ostomy care at this time from pt or son. BF Original Note: DCP Cont: Per Surgeon, pt making good progress but not medically stable to d/c yet today and tomorrow at the earliest pending his progress and tolerating diet. SW called mixer wet pour Bessie Ferny and confirmed that pt managed bedside teaching well and she will be bedside again around noon when son is supposed to be bedside as well. Currently mixer wet pour feels pt tolerated teaching well and likely will not need HH RN at d/c pending progress. SW spoke to pt's son Zane via phone and he confirmed that he is headed up to the hospital from [place] and will be bedside around noon and is now aware that mixer wet pour will be bedside for further teaching with pt and him today. Zane aware that pt not medically stable to d/c yet today and he is agreeable with pt plan of likely home with supportive roommate and son plans to make himself available for assist if needed. Plan: SW to follow closely after further ostomy teaching around noon today with pt and son and confirm that pt is safe for d/c home with roommate and if son is available for assist if needed at d/c. BELLA Reilly
--- NOTE | 2020-01-18 10:55 | PC.NURSE ---
Patient is calm and in good spirits today. He has an illiostomy bag that is putting out a small amount of brownish colored stool. He has a silverman catheter that is putting out straw colored urine. Up with sba to use bathroom, if needed. Given 10mg of oxycodone for complaints of discomfort and helpful. Patient does have a TBI, his memory has been good today and he is appropriate with staff.
--- NOTE | 2020-01-18 13:24 | P.PN_ITS ---
Subjective Subjective Date Patient Seen: 01/18/20 Time Patient Seen: 13:24 Interval history: No acute events overnight. Thin ostomy output. No nausea or fevers. Pain managed with PO pain med. Exam Vital Signs (past 8 hours): - 01/18/20 08:00 Temperature 98.8 F Pulse Rate 78 Respiratory Rate 20 Blood Pressure 137/94 H Pulse Oximetry 96 Oxygen Delivery Method Room Air Oxygen Flow Rate 0 Narrative Exam Narrative: GENERAL: Alert, comfortable, hypervigilant; perseverating; pressured speech EYES: Conjunctiva pink, sclera white, no periorbital swelling. CARDIOVASCULAR: Regular rate. No pedal edema. RESPIRATORY: Non-tachypneic, breathing comfortably on room air. GASTROINTESTINAL: Abdomen soft and non-distended; appropriate TTP for POD#3, copious thin black fluid in the ostomy bag GENITALURINARY: No flank tenderness. Silverman in place with clear yellow urine in the bag MUSCULOSKELETAL: Equal tone and mass bilaterally. SKIN: Warm, dry, soft, appropriate color for ethnicity. No other lesions, rashes, or wounds. Objective Labs Result Diagrams: 01/18/20 09:29 01/18/20 09:29 Labs: Laboratory Results - last 24 hr 01/18/20 01/18/20 09:29 09:29 WBC 10.7 RBC 4.41 L Hgb 13.1 L Hct 39.2 L MCV 88.9 MCH 29.6 MCHC 33.3 RDW 15.5 H Plt Count 140 L Neut % (Auto) 69.8 Lymph % (Auto) 18.0 L [place] % (Auto) 9.8 Eos % (Auto) 1.8 L Baso % (Auto) 0.6 Neut # (Auto) 7400 H Lymph # (Auto) 1900 [place] # (Auto) 1000 H Eos # (Auto) 200 Baso # (Auto) 100 Sodium 136 L Potassium 3.9 Chloride 102 Carbon Dioxide 27 BUN 17 Creatinine 1.09 Estimated GFR > 60.0 BUN/Creatinine Ratio 15.6 Glucose 141 H Calcium 9.5 Magnesium 2.1 Assessment & Plan Assessment and plan (1) Ileostomy in place: Problem details: Bessie Isaacs will see the patient and help him with learning ostomy care and setting him up with outpatient care. Dispo pending teaching is complete and supplies are set up for home. Current visit: Yes Status: Acute (2) S/P laparotomy: Current visit: Yes Status: Acute (3) Essential hypertension: Problem details: Blood pressure is slightly elevated, we will watch it for now, and continue with management of pain and anxiety Current visit: No Status: None (4) Mild persistent asthma without complication: Problem details: RT consult, patient using incentive spirometer 10 times an hour Current visit: No Status: None (5) Tobacco abuse: Current visit: No Status: None (6) History of subarachnoid hemorrhage: Current visit: No Status: None (7) Short-term memory loss: Current visit: No Status: Acute (8) Colovesical fistula: Problem details: Pt will go home with leg bag. Current visit: No Status: Acute (9) Malignant neoplasm of urinary bladder: Current visit: No Status: None (10) Diverticulitis: Current visit: No Status: Acute (11) Acute kidney injury: Problem details: Improving. Will cut down fluids, keep silverman for now. Current visit: Yes Status: Acute Assessment & Plan narrative: Patient is postop day 3 from sigmoid colectomy, small-bowel resection, and diverting ileostomy creation for acute on chronic diverticulitis of the sigmoid colon with involvement of small bowel and bladder. Ostomy output volume is still high. 950 was recorded, but I suspect it was more bc there was some spillage with the patient handling and changing the bag himself. Will advance to low residual, continue metamucil, and consider immodium. Labs look fine. Silverman will stay until Monday. If pt goes home before then, we will send him with a leg bag. Plan: DVT prophylaxis, with heparin GI prophylaxis, with famotidine Ambulate 20 minutes t.i.d. Leave Silverman in for now -- will likely go home with leg bag Pain control with as needed and scheduled medications ADAT to low residual Metamucil Immodium x 1 continue ostomy teaching dispo planning Time Spent With Patient Time with patient: 15-24 minutes Quality VTE Deep Vein Thrombosis/Pulmonary Embolism Present on Admission: No
--- NOTE | 2020-01-18 14:10 | PC.NURSE ---
Ostomy Nurse Consult Note Patient awake in bed, his son Zane is here from [place], [place] and will be going home with Rodrigue for a few days. I reviewed how to change an appliance, ileostmy anatomy, when to empty and how to empty an appliance as well as molding and cutting an appliance to fit around a stoma. I also review the crusting technique, paste, powder, and rings. Zane will review the [employer] new patient guide and review the [employer] website. Rodrigue's stoma is beefy red, moist and the bridge is in place. He didn't want to change the appliance but he wanted to change the pouch which he did. I reinforced with him the need to empty the appliance when it is a third or half full to prevent it from pulling off, which it sounds like it did last night. I had him empty it once and I emptied it twice. He verbalized understanding and did review the [employer] new patient guide. I have given him my cell phone number and asked him to call me with any questions or concerns since we are in the mist of the [place]-19 pandemic and it may be difficult for him to come in to the clinic in the future depending on the pandemic situation. I gave him several sample products to last him for at least a month. I did order sample supplies from two vendors yesterday and once he figures out which appliance he likes I will set him up for DME, this will most likely take place in the next two weeks. We discussed keeping hydrated and to prevent exposure to Covid-19. I informed him if he has nausea that he will need to have IV fluid replacement as he will become dehydrated. Patient and son verbalized understanding. We discussed hand washing and keep exposure from people practicing social distancing. His son is very aware of these precautions. I will follow up with Rodrigue with a phone call next week and will possibly see him in clinic next week.
[2020-01-18] MEDS: DIPHENOXYLATE/ATROP 2.5/0.025 TABLET 1 EACH PO (14:36)
[2020-01-18 15:50] VITALS: BP 146/104; PULSE 90; RESP 20; TEMP 36.4; O2SAT 96
[2020-01-18] MEDS: GABAPENTIN 100 MG CAPSULE PO (22:17)
[2020-01-18] MEDS: SODIUM CHLORIDE 0.9% FLUSH 10 ML IV ×2 (22:19→23:48)
[2020-01-18 23:45] VITALS: BP 152/89; PULSE 95; RESP 16; TEMP 36.4; O2SAT 98
[2020-01-19] MEDS: OXYCODONE IR 10 MG TABLET PO ×5 (05:57→23:50)
[2020-01-19 07:40] VITALS: BP 144/97; PULSE 81; RESP 18; TEMP 36.8; O2SAT 95
[2020-01-19] MEDS: DIPHENOXYLATE/ATROP 2.5/0.025 TABLET 1 EACH PO ×3 (09:09→21:01)
[2020-01-19] MEDS: ACETAMINOPHEN 325 MG TABLET 975 MG PO ×3 (09:10→21:01)
[2020-01-19] MEDS: LACTOBACILLUS ACIDOPHILUS TABLET 1 EACH PO ×2 (09:10→17:39)
[2020-01-19] MEDS: GABAPENTIN 100 MG CAPSULE PO (09:11)
[2020-01-19] MEDS: TAMSULOSIN 0.4 MG CAPSULE PO (09:11)
[2020-01-19] MEDS: PSYLLIUM HUSK 1 PACKET PO ×2 (09:11→21:01)
[2020-01-19] MEDS: LIDOCAINE PATCH 1 EACH ADH..PATCH TOP (09:12)
[2020-01-19] MEDS: HEPARIN 5,000 UNIT/ML VIAL 5000 UNIT SUBCUT ×2 (09:12→21:01)
[2020-01-19] MEDS: SODIUM CHLORIDE 0.9% FLUSH 10 ML IV ×2 (09:12→21:02)
--- NOTE | 2020-01-19 11:06 | PM.PNPO.1 ---
Subjective Subjective Date Patient Seen: 01/19/20 Time Patient Seen: 11:06 Interval history: No acute overnight events. Tolerating regular diet. Has reviewed ostomy care with Bessie and son. Exam Vital Signs (past 8 hours): - 01/19/20 07:40 Temperature 98.3 F Pulse Rate 81 Respiratory Rate 18 Blood Pressure 144/97 H Pulse Oximetry 95 Oxygen Delivery Method Room Air Oxygen Flow Rate 0 Narrative Exam Narrative: General adult male alert oriented no acute distress Chest nonlabored respiration Abdomen soft appropriately tender to palpation productive viable ileostomy Extremities warm well perfused Objective Labs Result Diagrams: 01/18/20 09:29 01/18/20 09:29 Assessment & Plan Post-op Postoperative Procedures: Procedures Operation Date: 01/15/20 08:45 Actual Procedures Side Surgeon p Laparoscopically Assisted to Open Colectomy, Take Down of Colovesical Fistula, Ostomy Venessa Stevens MD s cysto/placement of localizing ureteral stents Bilateral Juliana Briggs MD Postoperative status narrative: 59-year-old man postoperative day 4 status post sigmoid colectomy for colovesicular fistula with diverting ileostomy doing well. He feels he needs an additional day to feel comfortable with the ostomy care. -soft diet -monitor ileostomy output, goal less than 1 L per day currently 800ml/24hrs -remove Borden catheter and ostomy bar tomorrow 01/19 -anticipate discharge home tomorrow Quality VTE Deep Vein Thrombosis/Pulmonary Embolism Present on Admission: No
[2020-01-19] MEDS: FAMOTIDINE 20 MG/50 ML PIGGYBACK 200 MG IV ×2 (12:34→23:51)
--- NOTE | 2020-01-19 14:02 | CM.DPC ---
DCP continued: EMR REviewed: CM/RN met with patient today at the bedside. Patient was very upset and was very short tempered today. Patient stated he doesn't feel ready to D/C today. CM/RN asked why not? Patient stated he is just nervous going home today. Cm/Rn asked patient again about HH option and patient still doesn't want HH services at D/C or SNF. At D/C patient wants to go home with his son and his room mate. Kiley Weir RN
[2020-01-19 17:00] VITALS: BP 143/95; PULSE 86; RESP 16; TEMP 36.6; O2SAT 95
[2020-01-19 20:59] VITALS: BP 144/98; PULSE 83; RESP 16; TEMP 36.7; O2SAT 97
--- NOTE | 2020-01-19 21:41 | PC.NURSE ---
Bianca shift note: Awake and alert, afebrile. 200 ml green mucoid/soft/jelly like consistent drainage to Iliostomy output. x 2 episodes of 90 ml total green/soft/jelly consistency output per RECTUM. Tolerating Soft low fiber diet. F/C draining to gravity, 375 ml, clear yellow urine. Refusing use abdominal binder . Declined leg urinary bag for now, will decide in the morning. SCDs continuously through shift, IS between 2025-3312 while awake. Cont. on RA, sats 96%. In contact with irena Charlton via phone for support. Calls appropriately for staff assist.
[2020-01-19 23:45] VITALS: BP 138/94; PULSE 89; RESP 18; TEMP 36.9; O2SAT 100
[2020-01-20 05:50] VITALS: BP 131/93; PULSE 65; RESP 18; TEMP 36.9; O2SAT 96
[2020-01-20 08:16] VITALS: BP 145/99; PULSE 66; RESP 16; TEMP 36.3; O2SAT 95
[2020-01-20] MEDS: PSYLLIUM HUSK 1 PACKET PO (08:25)
[2020-01-20] MEDS: LIDOCAINE PATCH 1 EACH ADH..PATCH TOP (08:26)
[2020-01-20] MEDS: ACETAMINOPHEN 325 MG TABLET 975 MG PO (08:34)
[2020-01-20] MEDS: HEPARIN 5,000 UNIT/ML VIAL 5000 UNIT SUBCUT (08:35)
[2020-01-20] MEDS: DIPHENOXYLATE/ATROP 2.5/0.025 TABLET 1 EACH PO (08:35)
[2020-01-20] MEDS: TAMSULOSIN 0.4 MG CAPSULE PO (08:36)
[2020-01-20] MEDS: LACTOBACILLUS ACIDOPHILUS TABLET 1 EACH PO (08:37)
[2020-01-20] MEDS: SODIUM CHLORIDE 0.9% FLUSH 10 ML IV (08:37)
--- NOTE | 2020-01-20 13:47 | PC.NURSE ---
Pt instructions reviewed with patient in room and patient's sonZane via speaker phone; instructions included f/u appt, Rx medications, S/Sx of infection, Stoma care, and post-surgical precautions and care; This RN spoke with Dr Valentine regarding T-Bar placement in stoma and pt informed that T-Bar maintains loop placement and will be removed at f/u appt. This RN reminded patient to maintain hand hygiene, and pulmonary hygiene with cough/deep breathing; Berto ellis and d/c paperwork in [facility] folder; pt escorted via wheelchair to private vehicle.
--- NOTE | 2020-01-21 13:20 | PM.DS.1 ---
History of Present Illness History of Present Illness Date Patient Seen: 01/20/20 Time Patient Seen: 11:00 Chief complaint: Laparoscopically Assisted Colectomy Narrative: This is a 59 yo man with history of severe recurrent diverticulitis with colovesicular fistula. He was maintained on cipro for several months after multiple recurrent episodes of diverticulitis requiring ER visits and hospitalizations. Discharge Providers Provider Date of admission: 01/15/20 07:45 Discharge Date: 01/20/20 Primary care physician: Volodymyr Knight MD Consults: 01/15/20 08:28 Consult to Respiratory Therapy Evaluate & Treat Comment: Physician Instructions: Evaluate and treat 01/15/20 18:17 Consult to Discharge Planning Routine Comment: Consult to Ostomy Specialist Routine Comment: Consulting Provider: 01/15/20 19:21 Consult to Dietitian, Adult Routine Comment: Reason For Exam: weight loss prior to surgery/now with colostomy. 01/17/20 19:14 Consult to Discharge Planning Routine Comment: PATIENT WILL NEED OSTOMY SUPPLIES AND HH Discharge provider: Mauro Valentine MD Summary Hospital Course Discharge Diagnosis: Diverticulitis, colovesicular fistula, small bowel fistulized to colon Hospital Course: Pt was admitted after surgery on Monday01/15/20. NGT was left in place due to SBR. NGT was removed on POD#1 and he was placed on clear liquids and PO/IV pain meds PRN. Once he began having ileostomy output on POD#2, he was advanced to full liquids. Diet was gradually advanced, he ambulated well, and wounds looked clean. He was placed on metamucil, and probiotic. His silverman was left in for five days due to the fistula. He was kept on Tamsulosin to improve urine flow and reduce obstruction when silverman removed. Dr. Baum rounded on the patient during the weekend, and Dr. Valentine on Monday. See their notes for further details. The silverman was remove per Dr. Valentine on Monday, the day of discharge, and per report he voided prior to discharge. The ileostomy bar was left in place per Dr. Valentine. Status at Discharge Cognitive/behavioral status at discharge: oriented and at baseline, oriented Functional status at discharge: independent ambulation Overall status at discharge: patient is progressing back to baseline Time Spent with Patient Time spent: Less than 30 minutes (I wrote the patient's discharge instructions and non-narcotic Rx. Dr. Valentine rounded on the patient on Friday 01/19, approved and ordered the patient's discharge, and wrote his narcotic Rx per my request.. ) Time spent discussing smoking cessation with patient: more than 10 minutes (I spent much more than 10 minutes discussing smoking cessation with the patient over the course of his admission.) Exam Vital Signs (past 8 hours): Oxygen Delivery Method Room Air Oxygen Flow Rate 0 Narrative Exam Narrative: Per Dr. Valentine GENERAL: Alert, oriented, comfortable CARDIOVASCULAR: Regular rate. No pedal edema. RESPIRATORY: Non-tachypneic, breathing comfortably on room air. GASTROINTESTINAL: Abdomen soft and non-distended; ileostomy with thick output, silverman in place with clear yellow urine; removed this AM; incision c/d/i MUSCULOSKELETAL: Equal tone and mass bilaterally. SKIN: Warm, dry, soft, appropriate color for ethnicity. No other lesions, rashes, or wounds. NEURO: Alert and Oriented X 3. No gross sensory deficits, or cognitive issues. PSYCH: Appropriate affect and mood. Objective Labs Result Diagrams: 01/18/20 09:29 01/18/20 09:29 Discharge Plan Discharge Plan Patient Disposition: Home Discharge comment: Drink plenty of water to keep yourself hydrated. If you feel dry mouth or notice your urine becomes darker, increase your fluid intake. Avoid eating foods that are hard to digest, including uncooked vegetables, fruit peels, and hard meats such as steak and pork. You will receive a copy of Low Residue diet recommendations that will give more specifics about this. Take a probiotic twice daily such as Culturelle, or Lactobacillus which you can purchase at a pharmacy. Or you may take a serving of yogurt with active cultures twice daily. Your ostomy output should remain less than 1L per day. If you notice it is thinner or more copious, or you are feeling dehydrated, you may increase the Immodium and Metamucil gradually for thicker output. To start: Immodium 2mg two to three times per day, and closely observe how the output responds. If your ostomy output stops altogether, do not take any more immodium and call [facility] to speak with the electrical power station technician doctor. If the immodium helps, but you continue to have thin output which is more than 1 Liter per day, take the immodium 2mg tablet three times daily. After one to two days, if the output is still thin and higher than 1 Liter, gradually increase to 4mg three times per day as needed. Reduce the amount you are taking if the stool becomes too thick, stops altogether, or you feel backed up. Take Metamucil (or other fiber supplement such as Benefiber) 2tspn in 8 oz water twice daily -- may go up to three times daily if needed Take your prescription pain medication as needed so you are able to cough, take deep breaths, sleep well, and get up to walk around. You may also take Tylenol for pain, to help reduce the amount of narcotic you need to take. Do not take more than 3000mg of Tylenol in 24 hours. Keep active with light activity such as gentle exercise and taking walks. Avoid lifting over 10lbs, abdominal core work, or very strenuous activity. Avoid being sedentary for prolonged periods. You may shower. After showering, keep a dry dressing over your incisional wounds as needed. If you notice any redness or drainage from the wounds, call our office and speak to Dr. Stevens, or the doctor electrical power station technician. If you have any other concerns about your surgery or post operative care, please call the surgeon's office number and speak to the office nurse or the surgeon electrical power station technician. If you become severely ill with significant chest pain, shortness of breath, significant bleeding, or other life threatening symptoms, please call 911 or go to the ER right away. Continue to follow the instructions given by the ostomy nurse regarding care and management of your ostomy site. Discharge orders & Medications Prescriptions: New diphenoxylate-atropine 2.5-0.025 mg Tablet 1 tab PO TID Qty: 90 RF: 0 lidocaine 5 % Adhesive Patch,Medicated 1 patch topical DAILY Qty: 15 RF: 0 acetaminophen 325 mg Tablet 975 mg PO TID MDD 9 tabs Qty: 120 RF: 0 tamsulosin [Flomax] 0.4 mg Capsule 0.4 mg PO DAILY Qty: 60 RF: 0 oxycodone 5 mg tablet See Rx Instructions .ROUTE .COMPLEX PRN (Reason: painful procedure) Qty: 20 RF: 0 diphenoxylate-atropine 2.5-0.025 mg tablet See Rx Instructions .ROUTE .COMPLEX Qty: 60 RF: 0 Continued atorvastatin [Lipitor] 80 MG tablet 80 mg PO HS Qty: 90 RF: 1 Culturelle 10 billion cell capsule 1 cap PO BID Qty: 60 RF: 0 famotidine 20 mg tablet 20 mg PO BID Qty: 60 RF: 6 Discontinued sodium,potassium,mag sulfates 17.5-3.13-1.6 gram recon soln 177 ml PO DAILY Qty: 354 RF: 0 Suprep Bowel Prep Kit 17.5-3.13-1.6 gram recon soln 177 ml PO DAILY Qty: 354 RF: 0 erythromycin 500 mg tablet 1,000 mg PO TID Qty: 6 RF: 0 neomycin 500 mg tablet 1 g PO TID Qty: 6 RF: 0 ciprofloxacin HCl [Cipro] 500 mg tablet 500 mg PO BID RF: 0 tramadol 50 mg tablet 50 mg PO Q8H PRN (Reason: diverticulitis pain) Qty: 30 RF: 0 magnesium citrate Solution 296 ml PO .per instructions Qty: 592 RF: 0 ciprofloxacin HCl [Cipro] 500 mg tablet 500 mg PO Q12H Qty: 60 RF: 0 Follow up/Referrals: Juliana Briggs MD [Physician] - (If you are sent home with a leg bag, see Dr. Briggs this week. If you do not have a Silverman catheter or leg bag at the time of hospital discharge, call and make a follow up to see Dr. Briggs in a few weeks.) Venessa Stevens MD [Physician] - 01/28/20 11:00 am (Please make an appointment to follow up with Dr. Stevens in the [facility] office within two weeks of surgery date. If you need to reach a doctor please call our office. If it is after hours listen to the entire message and at the end you will be connected with the page auxiliary power equipment operator. They will page the doctor on-call) Volodymyr Knight MD [Primary Care Provider] - Diet/Activity/Treatments Diet comment: Low residual diet. Nurse to give diet handout at time of discharge. Activity: You may shower. Do not lift over 10 lb or strain for the next 5 weeks. You may walk. Do not drive until you are pain-free off medication. Catheter comment: If you have difficulty voiding please call the office Skin/Wound/Dressing Care Report to your healthcare provider any signs of infection, such as:: chills, fever, night sweats, increased pain, unusual drainage and unusual redness Dressing: You make keep a dry dressing on your incision sites. Remove the dressings to shower and replace as needed. Visit Report/Discharge Packet Instructions: Low-Fiber/Low-Residue Diet, DI for Colectomy, DI for Prescription Opioid Use, [facility]: Wound Care Discharge Data Primary Care Provider: Volodymyr Knight Discharges patient from system. Discharge Date/Time: 01/20/20 13:20 Quality VTE Deep Vein Thrombosis/Pulmonary Embolism Present on Admission: No
== END 2020-01-24 14:25 | disposition home or self-care (01) | DRG 674 ==
PROVIDERS: Specialist; Admitting Provider Surgery; PCP Family Medicine; Referring Provider Surgery; Visit Provider Surgery
PROC: 0DTE0ZZ Resection of Large Intestine, Open Approach (ICD-10-PCS; principal; 2020-01-15 08:45)
PROC: 0T9880Z Drainage of Bilateral Ureters with Drainage Device, Via Natural or Artificial Opening Endoscopic (ICD-10-PCS; 2020-01-15 08:45)
DX: N32.1 Vesicointestinal fistula (principal); K63.2 Fistula of intestine; K57.20 Diverticulitis of large intestine with perforation and abscess without bleeding; N17.9 Acute kidney failure, unspecified; T81.32XA Disruption of internal operation (surgical) wound, not elsewhere classified, initial encounter; Z43.3 Encounter for attention to colostomy; R41.844 Frontal lobe and executive function deficit; F17.210 Nicotine dependence, cigarettes, uncomplicated; J45.30 Mild persistent asthma, uncomplicated; I10 Essential (primary) hypertension; Z85.51 Personal history of malignant neoplasm of bladder; R33.9 Retention of urine, unspecified; K21.9 Gastro-esophageal reflux disease without esophagitis
CPT/HCPCS: 36415; 80048; 80053; 83735; 85025; 86850; 86900; 86901; 94760; 99283; C9290; J0131; J1100; J1170; J1644; J1650; J2060; J2250; J2405; J2543; J2704; J3010

== ENCOUNTER 2020-01-21 12:30 | Inpatient (IN) | payer MEDICARE, MEDICAID, SELFPAY ==
[2020-01-15 19:11] VITALS: BMI 27.4
[2020-01-21] VITALS (14 sets, daily range): BP systolic 97–157; BP diastolic 52–107; PULSE 57–102; RESP 12–22; TEMP 36.1–37.3; O2SAT 94–100; BMI 25.8
--- NOTE | 2020-01-21 12:32 | ED.GENADULT ---
HPI - General Adult General Chief complaint: Abdominal Pain Stated complaint: Post op complications Time Seen by Provider: 01/21/20 12:32 Source: patient Mode of arrival: EMS Limitations: no limitations History of Present Illness HPI narrative: 59-year-old male who last day underwent a bowel resection secondary to diverticulitis in a fistula. Was discharged home. States that last evening the midline wound dehisced and bowel started to protrude. No fever. Went to his primary doctor who contacted the operative surgeon who advised that he come to the emergency department. Patient arrives the emergency department for evaluation of this issue. Related Data Previous Rx's Medication Instructions Recorded atorvastatin [Lipitor] 80 mg PO HS #90 tabs 05/12/17 Lactobacillus rhamnosus GG 10 1 cap PO BID #60 cap 12/13/19 billion cell capsule famotidine 20 mg PO BID #60 tab 12/24/19 acetaminophen 975 mg PO TID #120 tab MDD 9 tabs 01/19/20 diphenoxylate-atropine 1 tab PO TID #90 tab 01/19/20 lidocaine 1 patch TOPICAL DAILY #15 each 01/19/20 tamsulosin [Flomax] 0.4 mg PO DAILY #60 cap 01/19/20 diphenoxylate-atropine See Rx Instructions .ROUTE 01/20/20 .COMPLEX #60 tab oxycodone See Rx Instructions .ROUTE 01/20/20 .COMPLEX PRN #20 tab Allergies Allergy/AdvReac Type Severity Reaction Status Date / Time No Known Drug Allergies Allergy Verified 01/21/20 12:43 Review of Systems Constitutional Constitutional: Denies fever(s) Genitourinary Genitourinary: Denies dysuria Integumentary/Breasts Comments: Midline wound dehiscence Neurologic Neurologic: Denies behavioral changes Psychiatric Psychiatric: Denies behavioral changes Hematologic/Lymphatic Hematologic/Lymphatic: Denies easy bleeding and Denies easy bruising Patient History Medical History Chronic obstructive pulmonary disease with acute exacerbation (12/18/15) Diverticulitis (Acute) 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) Intracranial hemorrhage (Inactive) Malignant neoplasm of urinary bladder (11/09/15) Subarachnoid hemorrhage (Inactive) Subdural hemorrhage (Inactive) Surgical History (Updated 01/16/20 @ 12:26 by Venessa Stevens MD) Hx of craniotomy (Acute) Status post appendectomy Status post transurethral resection of prostate Social History marital status: unknown household members: friend(s) occupational status: disabled Smoking Status: Current every day smoker alcohol intake: former substance use type: marijuana Smoking Status: Current every day smoker alcohol intake frequency: holidays/special occasions only Substance Use Type: marijuana Exam Initial Vital Signs Initial Vital Signs: Vital Signs Temperature 98.5 F 01/21/20 12:29 Pulse Rate 69 01/21/20 12:29 Respiratory Rate 20 01/21/20 12:29 Blood Pressure 151/95 H 01/21/20 12:29 Pulse Oximetry 100 01/21/20 12:29 Const General: cooperative and comfortable Resp Effort & Inspection: normal respiratory effort Auscultation: clear to auscultation bilaterally Cardio Rate: regular rate Rhythm: regular rhythm GI Inspection: non-distended Palpation: soft Other: Colostomy present right-sided abdomen. Has a midline surgical wound with the lower portion of a dehisced with bowel protruding. No omentum. Is pink in color. Has peristalsis. Neuro General: alert, awake and oriented x3 Extrem General: capillary refill normal Course Vital Signs Vital signs: Vital Signs - 8 hr 01/21/20 12:29 Temperature 98.5 F Pulse Rate 69 Respiratory Rate 20 Blood Pressure 151/95 H Pulse Oximetry 100 Medical Decision Making MDM Narrative Medical decision making narrative: Dr Stevens with General surgery new of patient arrival. She evaluated patient in the emergency department. Will admit for surgical intervention. Discharge Plan Departure Patient Disposition: Admitted As Inpatient Clinical Impression: Evisceration of bowel Surgical wound dehiscence Qualifiers: Encounter type: initial encounter Qualified Code(s): T81.31XA - Disruption of external operation (surgical) wound, not elsewhere classified, initial encounter Admit Date/Time: 01/21/20 12:39 Admit Provider: Venessa Stevens
--- NOTE | 2020-01-21 12:49 | PC.NURSE ---
noticed with ileostomy bag with scant liquid green drainage
--- NOTE | 2020-01-21 12:56 | PM.DS.1 ---
History of Present Illness History of Present Illness Date Patient Seen: 01/20/20 Chief complaint: Post op complications Discharge Providers Provider Date of admission: 01/21/20 12:39 Primary care physician: Volodymyr Knight MD Discharge provider: Venessa Stevens MD Exam Vital Signs (past 8 hours): - 01/21/20 12:29 Temperature 98.5 F Pulse Rate 69 Respiratory Rate 20 Blood Pressure 151/95 H Pulse Oximetry 100 Oxygen Delivery Method Room Air Discharge Plan Discharge orders & Medications Prescriptions: No Action atorvastatin [Lipitor] 80 MG tablet 80 mg PO HS Qty: 90 RF: 1 Culturelle 10 billion cell capsule 1 cap PO BID Qty: 60 RF: 0 diphenoxylate-atropine 2.5-0.025 mg Tablet 1 tab PO TID Qty: 90 RF: 0 lidocaine 5 % Adhesive Patch,Medicated 1 patch topical DAILY Qty: 15 RF: 0 acetaminophen 325 mg Tablet 975 mg PO TID MDD 9 tabs Qty: 120 RF: 0 tamsulosin [Flomax] 0.4 mg Capsule 0.4 mg PO DAILY Qty: 60 RF: 0 oxycodone 5 mg tablet See Rx Instructions .ROUTE .COMPLEX PRN (Reason: painful procedure) Qty: 20 RF: 0 diphenoxylate-atropine 2.5-0.025 mg tablet See Rx Instructions .ROUTE .COMPLEX Qty: 60 RF: 0 famotidine 20 mg tablet 20 mg PO BID Qty: 60 RF: 6 Follow up/Referrals: Volodymyr nKight MD [Primary Care Provider] - Discharge Data Primary Care Provider: Volodymyr Knight
--- NOTE | 2020-01-21 12:59 | PM.HP.1 ---
History of Present Illness History of Present Illness Date Patient Seen: 01/21/20 Time Patient Seen: 12:59 Chief complaint: Post op complications Narrative: 59 yo man discharged yesterday by Dr. Valentine, on POD#5 s/p exlap, returns today by airlift from [place] for evisceration. He says he saw a burst of fluid last night from his midline incision, and then this morning saw a pink bubble in the incision. He sent a picture of his wound to his son, who sent the picture to Dr. Valentine. After reviewing the picture which looked like small bowel evisceration, I called the patient and told him to take a helicopter to the ER. He denies significant pain. He states he has had good ileostomy output, denies nausea, vomiting, fevers. ROS: as per HPI PE: GENERAL: Alert, oriented, comfortable, pressured speech HENT: Normocephalic, atraumatic. Hearing intact. Oral mucosa is pink and moist. EYES: Conjunctiva pink, sclera white, no periorbital swelling. CARDIOVASCULAR: Regular rate. No pedal edema. RESPIRATORY: Non-tachypneic, breathing comfortably on room air. GASTROINTESTINAL: 2cm gap in lower midline skin incision with knuckle of small bowel poking through, eviscerated bowel is pink, well perfused, and peristalsing GENITALURINARY: No flank tenderness. MUSCULOSKELETAL: Equal tone and mass bilaterally. SKIN: Warm, dry, soft, appropriate color for ethnicity. No other lesions, rashes, or wounds. NEURO: Alert and Oriented X 3. No gross sensory deficits, or cognitive issues. PSYCH: Appropriate affect and mood. Patient History Medical History Chronic obstructive pulmonary disease with acute exacerbation (12/18/15) Diverticulitis (Acute) 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) Intracranial hemorrhage (Inactive) Malignant neoplasm of urinary bladder (11/09/15) Subarachnoid hemorrhage (Inactive) Subdural hemorrhage (Inactive) Surgical History Hx of craniotomy (Acute) Status post appendectomy Status post transurethral resection of prostate Family & Social History Family History Brother Heart disease Hypertension High cholesterol Brother Heroin addiction Heart disease Hypertension High cholesterol Mental health problem Father Heart disease Hypertension High cholesterol Social History: household members friend(s) Safety & Behavioral: Feels Safe in Current Yes Environment Been Physically Hurt or No Threatened By a Person Tobacco & Substance use: Tobacco type cigarettes Smoking Status Current every day smoker alcohol intake former alcohol intake frequency holiday/special occasion Substance Use Type marijuana Meds Home Medications and Allergies Home Medications Medication Instructions Recorded Confirmed Type atorvastatin [Lipitor] 80 mg PO HS #90 tabs 05/12/17 01/15/20 Rx Lactobacillus rhamnosus GG 10 1 cap PO BID #60 cap 12/13/19 01/15/20 Rx billion cell capsule famotidine 20 mg PO BID #60 tab 12/24/19 01/15/20 Rx acetaminophen 975 mg PO TID #120 tab MDD 9 tabs 01/19/20 Rx diphenoxylate-atropine 1 tab PO TID #90 tab 01/19/20 Rx lidocaine 1 patch TOPICAL DAILY #15 each 01/19/20 Rx tamsulosin [Flomax] 0.4 mg PO DAILY #60 cap 01/19/20 Rx diphenoxylate-atropine See Rx Instructions .ROUTE 01/20/20 Rx .COMPLEX #60 tab oxycodone See Rx Instructions .ROUTE 01/20/20 Rx .COMPLEX PRN #20 tab Allergies Allergy/AdvReac Type Severity Reaction Status Date / Time No Known Drug Allergies Allergy Verified 01/21/20 12:43 Exam Vital Signs (past 8 hours): - 01/21/20 12:29 Temperature 98.5 F Pulse Rate 69 Respiratory Rate 20 Blood Pressure 151/95 H Pulse Oximetry 100 Oxygen Delivery Method Room Air Assessment & Plan Assessment and plan (1) Surgical wound dehiscence: Qualifiers: Encounter type: initial encounter Qualified Code(s): T81.31XA - Disruption of external operation (surgical) wound, not elsewhere classified, initial encounter Current visit: Yes Status: Acute (2) Evisceration of bowel: Current visit: Yes Status: Acute (3) Ileostomy in place: Current visit: No Status: Acute (4) S/P laparotomy: Current visit: No Status: Acute (5) Tobacco abuse: Current visit: No Status: None Assessment & Plan narrative: 59 yo man with acute evisceration of bowel five days out from colon resection, SBR, and colovesicular fistula takedown. Plan: NPO IV fluids Zosyn CBC, BMP, mag Urgent to OR for ex lap, washout, closure of fascia Time Spent With Patient Time with patient: 25 - 35 minutes Quality VTE Deep Vein Thrombosis/Pulmonary Embolism Present on Admission: No
[2020-01-21] MEDS: PIPERACILLIN-TAZO 3.375 GM/50 ML FROZ.PIGGY IV ×2 (13:32→21:07)
[2020-01-21] MEDS: LACTATED RINGERS 1,000 ML 42 ML IV ×2 (13:35→18:18)
[2020-01-21 14:02] LABS: Add Manual Diff / Slide Review NO; Basophils Absolute Auto 0 /uL (0-100); Basophils Percent Auto 0.3 % (0-2); Eosinophils Absolute Auto 100 /uL (0-450); Eosinophils Percent Auto 1.6 % (2-4); Hematocrit 22.2 % (41-53); Hemoglobin 7.4 g/dL (13.5-17.5); Lymphocytes Absolute Auto 1200 /uL (1100-4500); Lymphocytes Percent Auto 22.4 % (25-40); Mean Corpuscular HGB Conc 33.2 % (30-36); Mean Corpuscular Hemoglobin 29.8 PG (26-34); Mean Corpuscular Volume 89.6 fL (80-100); Monocytes Absolute Auto 600 /uL (0-900); Monocytes Percent Auto 12.1 % (3-14); Neutrophils Absolute Auto 3300 /uL (1500-7000); Neutrophils Percent Auto 63.6 % (50-75); Platelet Count 136 X10^3/uL (150-400); Red Blood Cell Count 2.48 X10^6/uL (4.5-5.9); Red Cell Distribution Width 14.9 % (11.6-14.8); White Blood Cell Count 5.2 X10^3/uL (4.5-11.0)
[2020-01-21 14:16] LABS: Magnesium 1.4 mg/dL (1.6-2.3)
--- NOTE | 2020-01-21 14:41 | SUR.OPER ---
Supine on padded OR bed, head on pillow, arms secured on padded arm boards at <90 degrees abduction, legs uncrossed, safety belt at thigh, tape over blanket over lower legs.
[2020-01-21] MEDS: BUPIVACAINE 0.25% W/ EPI 30 ML VIAL 60 ML INJ (14:47)
[2020-01-21] MEDS: BUPIVACAINE LIPOSOME 266 MG/20 ML VIAL INJ (14:48)
[2020-01-21] MEDS: ACETAMINOPHEN IV 1,000 MG/100 ML VIAL 400 MG IV ×2 (15:03→18:19)
--- NOTE | 2020-01-21 15:50 | PM.OP.1 ---
<Venessa Stevens MD - Last Filed: 01/21/20 16:06> Operative Date/Time/Diagnoses Date of procedure: 01/21/20 Time of procedure: 15:50 Pre-op diagnosis: Evisceration of bowel through prior laparotomy incision Post-op diagnosis: same <Venessa Stevens MD - Last Filed: 01/21/20 16:06> Procedure & Clinicians Procedure: Emergency laparotomy, fascial closure Same procedure as scheduled: Yes Indications: This is a 59 yo man who had an exploratory laparotomy five days ago for colovesicular fistula takedown. He was discharged home yesterday, and last evening he had a gush of fluid from his incision. Today he noticed bowel sticking out of his incision. He was airlifted from [place] and came into the ER. Surgeon: Venessa Stevens Click Yes if Unassisted: Yes Anesthesia Type: General Operative Notes Findings: Dehiscence of midline fascia with two loops of small bowel eviscerated through the midline; pink, peristalsing well perfused bowel; Suture was broken Closure Type: primary Specimen(s): none sent Estimated Blood Loss (mL): 10 Blood products transfused: none Procedure in detail: The patient was brought into the operating room and placed supine on the OR table. Sequential compression devices were placed on both legs and turned on. Appropriate perioperative antibiotics were given prior to the start of surgery. General anesthesia was induced the patient was intubated. The abdomen was prepped and draped in sterile fashion. Surgical time-out was conducted. Skin bennie than were removed with hemostats. The small bowel was visible within the wound, and the fascia had dehisced, with evidence of a broken Prolene suture. It looked like the fascia was relatively well perfused and in good shape, but it was retracted laterally and the suture was just sitting in the wound. Was still tied securely at the superior and inferior apices of the wound, but at the mid point it looks like the suture was broken proximal to where the two sutures had been tied together. The Prolene suture was removed. The bladder was tense and was pressed up into the wound. I asked the nurses to place a Borden under the drapes, and once this was done the bladder decompressed, the got over 300 cc of urine out. The bowel was examined. It appeared pink, well perfused, and healthy. It did not appear to be damaged her injured, did not appear to have suffered any ischemia. There was some serosanguineous fluid but no blood welling up in the wound. I then closed the peritoneum with running 0 Vicryl suture, closed the anterior rectus fascia with running 0 Prolene suture, with one suture at the superior apex coming down, and a second suture at the inferior apex coming up. The two were tied together at the midpoint of the wound. Local anesthetic was infiltrated into the abdominal wall using 30mL of 0.25% Marcaine with epi and 20mL's of Exparel. An additional running 0 Vicryl suture was used to reinforce and take pressure off of the Prolene suture. The skin was then closed with skin bennie and 4-0 Monocryl in the umbilicus. The wound was dressed with 4x4's and tape, and the ostomy pouch was replaced. He was transferred to the postanesthesia care unit in stable condition. Complications: none Post-operative Condition: stable Disposition: PACU
[2020-01-21 16:08] LABS: Alanine Aminotransferase 24 IU/L (<50); Albumin 1.7 g/dL (3.5-5.0); Albumin Globulin Ratio 1.1 (1.0-2.8); Alkaline Phosphatase 27 U/L (38-126); Aspartate Aminotransferase 24 IU/L (17-59); BUN Creatinine Ratio 19.6 (6-22); Bilirubin Total 0.3 mg/dL (0.2-1.3); Blood Urea Nitrogen 11 mg/dL (9-20); Calcium 7.5 mg/dL (8.4-10.2); Carbon Dioxide 15 mmol/L (22-32); Chloride 105 mmol/L (98-107); Estimated Glomerular Filt Rate > 60.0 mL/min (>60); Globulin 1.6 g/dL (1.7-4.1); Glucose 50 mg/dL (70-100); HEMOLYSIS < 15 (0-50); Potassium 4.2 mmol/L (3.4-5.1); Sodium 131 mmol/L (137-145)
[2020-01-21 16:21] LABS: Total Protein 3.3 g/dL (6.3-8.2)
[2020-01-21 16:25] LABS: Add Manual Diff / Slide Review NO; Basophils Absolute Auto 100 /uL (0-100); Basophils Percent Auto 0.7 % (0-2); Eosinophils Absolute Auto 200 /uL (0-450); Eosinophils Percent Auto 2.9 % (2-4); Hematocrit 32.2 % (41-53); Hemoglobin 10.7 g/dL (13.5-17.5); Lymphocytes Absolute Auto 1800 /uL (1100-4500); Lymphocytes Percent Auto 21.9 % (25-40); Mean Corpuscular HGB Conc 33.3 % (30-36); Mean Corpuscular Hemoglobin 29.6 PG (26-34); Mean Corpuscular Volume 88.7 fL (80-100); Monocytes Absolute Auto 800 /uL (0-900); Monocytes Percent Auto 10.2 % (3-14); Neutrophils Absolute Auto 5400 /uL (1500-7000); Neutrophils Percent Auto 64.3 % (50-75); Platelet Count 206 X10^3/uL (150-400); Red Blood Cell Count 3.63 X10^6/uL (4.5-5.9); White Blood Cell Count 8.3 X10^3/uL (4.5-11.0)
[2020-01-21 16:38] LABS: Alanine Aminotransferase 50 IU/L (<50); Albumin 3.6 g/dL (3.5-5.0); Albumin Globulin Ratio 1.3 (1.0-2.8); Alkaline Phosphatase 49 U/L (38-126); Aspartate Aminotransferase 44 IU/L (17-59); BUN Creatinine Ratio 16.5 (6-22); Blood Urea Nitrogen 20 mg/dL (9-20); Calcium 9.1 mg/dL (8.4-10.2); Carbon Dioxide 26 mmol/L (22-32); Chloride 102 mmol/L (98-107); Estimated Glomerular Filt Rate > 60.0 mL/min (>60); Globulin 2.7 g/dL (1.7-4.1); Glucose 122 mg/dL (70-100); HEMOLYSIS < 15 (0-50); Potassium 4.1 mmol/L (3.4-5.1); Sodium 136 mmol/L (137-145); Total Protein 6.3 g/dL (6.3-8.2)
--- NOTE | 2020-01-21 16:40 | SUR.PHASEI ---
Report to LASHONDA Frankel AC. Update at BS for binder to be placed and experel used with band on left arm. Pt was transferred to room 205 by bed. Monitoring resumed by Jostin. Pt transferred in stable condition
[2020-01-21 16:43] LABS: Magnesium 2.1 mg/dL (1.6-2.3)
[2020-01-21 19:58] LABS: Add Manual Diff / Slide Review NO; Basophils Absolute Auto 0 /uL (0-100); Basophils Percent Auto 0.4 % (0-2); Eosinophils Absolute Auto 0 /uL (0-450); Eosinophils Percent Auto 0.2 % (2-4); Hematocrit 33.8 % (41-53); Hemoglobin 11.4 g/dL (13.5-17.5); Lymphocytes Absolute Auto 500 /uL (1100-4500); Lymphocytes Percent Auto 6.2 % (25-40); Mean Corpuscular HGB Conc 33.7 % (30-36); Mean Corpuscular Hemoglobin 29.7 PG (26-34); Mean Corpuscular Volume 88.3 fL (80-100); Monocytes Absolute Auto 200 /uL (0-900); Monocytes Percent Auto 2.9 % (3-14); Neutrophils Absolute Auto 7800 /uL (1500-7000); Neutrophils Percent Auto 90.3 % (50-75); Platelet Count 207 X10^3/uL (150-400); Red Blood Cell Count 3.83 X10^6/uL (4.5-5.9); Red Cell Distribution Width 14.7 % (11.6-14.8); White Blood Cell Count 8.6 X10^3/uL (4.5-11.0)
[2020-01-21] MEDS: ACETAMINOPHEN 325 MG TABLET 975 MG PO (21:07)
[2020-01-21] MEDS: raNITIdine 150 MG CAPSULE PO (21:08)
[2020-01-21] MEDS: OXYCODONE IR 5 MG TABLET 10 MG PO (23:21)
[2020-01-22] VITALS (8 sets, daily range): BP systolic 128–154; BP diastolic 74–100; PULSE 55–62; RESP 16–20; TEMP 36.6–37.1; O2SAT 96–99; BMI 25.8
--- NOTE | 2020-01-22 00:40 | PC.NURSE ---
Addendum entered by Melva Rosas R.N. 01/22/20 06:32: Assisted out of bed and walked around room with SBA and then back to bed. Had 150cc dark brown/green liquid stool from ostomy. Addendum entered by Melva Rosas R.N. 01/22/20 03:33: States incisional pain is again 6/10; medicated with Oxycodone. Requested SCD's be removed at this time stating the machine is too loud; reminded of importance of ankle waving. Original Note: Patient seen and assessed at 0000. Is alert and oriented although due to hx of brain aneurysm has some memory loss/forgetfulness and reports intermittent mood swings. Breath sounds diminished at bases but CTA with RA sat of 97%. HRR. Denies nausea. BT present and is passing flatus. Ostomy right abdomen with red, beefy stoma; dark brown liquid stool noted in bag. Dressing to midline is CDI. [place] to incisions on each side of midline dressing; bennie intact with no surrounding redness or drainage. Denies abdominal tenderness with palpation but complains of 6/10 pain after coughing and 3/10 when at rest; medicated with Oxycodone. Indwelling catheter is patent; urine is clear yellow. Able to move self in bed. Wearing bilateral calf SCD's. Fall risk score is moderate; bed alarm is activated.
[2020-01-22] MEDS: PIPERACILLIN-TAZO 3.375 GM/50 ML FROZ.PIGGY IV ×4 (01:58→19:50)
[2020-01-22] MEDS: SODIUM CHLORIDE 0.9% FLUSH 10 ML IV ×3 (01:59→21:02)
[2020-01-22] MEDS: OXYCODONE IR 5 MG TABLET 10 MG PO ×4 (03:31→21:01)
[2020-01-22 05:48] LABS: Add Manual Diff / Slide Review NO; Basophils Absolute Auto 0 /uL (0-100); Basophils Percent Auto 0.1 % (0-2); Eosinophils Absolute Auto 0 /uL (0-450); Hemoglobin 11.1 g/dL (13.5-17.5); Lymphocytes Absolute Auto 1400 /uL (1100-4500); Mean Corpuscular HGB Conc 33.6 % (30-36); Mean Corpuscular Hemoglobin 29.8 PG (26-34); Mean Corpuscular Volume 88.6 fL (80-100); Monocytes Absolute Auto 1000 /uL (0-900); Monocytes Percent Auto 10.5 % (3-14); Neutrophils Absolute Auto 7000 /uL (1500-7000); Neutrophils Percent Auto 74.4 % (50-75); Platelet Count 221 X10^3/uL (150-400); Red Blood Cell Count 3.72 X10^6/uL (4.5-5.9); White Blood Cell Count 9.4 X10^3/uL (4.5-11.0)
[2020-01-22 06:17] LABS: BUN Creatinine Ratio 16.1 (6-22); Blood Urea Nitrogen 18 mg/dL (9-20); Calcium 9.3 mg/dL (8.4-10.2); Carbon Dioxide 25 mmol/L (22-32); Chloride 102 mmol/L (98-107); Estimated Glomerular Filt Rate > 60.0 mL/min (>60); Glucose 126 mg/dL (70-100); HEMOLYSIS < 15 (0-50); Magnesium 2.1 mg/dL (1.6-2.3); Potassium 4.5 mmol/L (3.4-5.1); Sodium 135 mmol/L (137-145)
[2020-01-22] MEDS: TAMSULOSIN 0.4 MG CAPSULE PO (08:34)
[2020-01-22] MEDS: ACETAMINOPHEN 325 MG TABLET 975 MG PO ×2 (08:34→21:02)
[2020-01-22] MEDS: raNITIdine 150 MG CAPSULE PO ×2 (08:34→21:01)
--- NOTE | 2020-01-22 11:13 | PM.PN.1 ---
Subjective Subjective Date Patient Seen: 01/22/20 Time Patient Seen: 11:13 Interval history: No acute events overnight. Pain controlled on PO pain med. Denies nausea. Denies cough, denies fever, denies rhinorrhea, denies shortness of breath. Exam Vital Signs (past 8 hours): - 01/22/20 08:00 Temperature 98.7 F Pulse Rate 55 L Respiratory Rate 16 Blood Pressure 150/75 H Pulse Oximetry 99 Oxygen Delivery Method Room Air Oxygen Flow Rate 0 Narrative Exam Narrative: General: Alert, oriented, comfortable CARDIOVASCULAR: Regular rate. No pedal edema. RESPIRATORY: Non-tachypneic, breathing comfortably on room air. No cough, no rhinorrhea GASTROINTESTINAL: Abdomen soft and non-distended; ileostomy with thick brown stool in the bag : silverman in place with clear yellow urine in the bag; incision c/d/i MUSCULOSKELETAL: Equal tone and mass bilaterally. SKIN: Warm, dry, soft, appropriate color for ethnicity. No other lesions, rashes, or wounds. NEURO: Alert and Oriented X 3. No gross sensory deficits, or cognitive issues. PSYCH: Appropriate affect and mood. Objective Labs Result Diagrams: 01/22/20 05:26 01/22/20 05:26 Labs: Laboratory Results - last 24 hr 01/21/20 01/21/20 01/21/20 13:35 13:35 13:35 WBC 5.2 RBC 2.48 L Hgb 7.4 L Hct 22.2 L MCV 89.6 MCH 29.8 MCHC 33.2 RDW 14.9 H Plt Count 136 L Neut % (Auto) 63.6 Lymph % (Auto) 22.4 L Fountain % (Auto) 12.1 Eos % (Auto) 1.6 L Baso % (Auto) 0.3 Neut # (Auto) 3300 Lymph # (Auto) 1200 [place]ountain # (Auto) 600 Eos # (Auto) 100 Baso # (Auto) 0 Sodium 131 L Potassium 4.2 Chloride 105 Carbon Dioxide 15 L BUN 11 Creatinine 0.56 L Estimated GFR > 60.0 BUN/Creatinine Ratio 19.6 Glucose 50 L Calcium 7.5 L Magnesium 1.4 L Total Bilirubin 0.3 AST 24 ALT 24 Alkaline Phosphatase 27 L Total Protein 3.3 L* Albumin 1.7 L Globulin 1.6 L Albumin/Globulin Ratio 1.1 Blood Type Antibody Screen 01/21/20 01/21/20 01/21/20 16:13 16:13 16:13 WBC 8.3 D RBC 3.63 L Hgb 10.7 L Hct 32.2 L MCV 88.7 MCH 29.6 MCHC 33.3 RDW 15.0 H Plt Count 206 Neut % (Auto) 64.3 Lymph % (Auto) 21.9 L Fountain % (Auto) 10.2 Eos % (Auto) 2.9 Baso % (Auto) 0.7 Neut # (Auto) 5400 Lymph # (Auto) 1800 Fountain # (Auto) 800 Eos # (Auto) 200 Baso # (Auto) 100 Sodium Potassium Chloride Carbon Dioxide BUN Creatinine Estimated GFR BUN/Creatinine Ratio Glucose Calcium Magnesium 2.1 Total Bilirubin AST ALT Alkaline Phosphatase Total Protein Albumin Globulin Albumin/Globulin Ratio Blood Type A Positive Antibody Screen Negative 01/21/20 01/21/20 01/22/20 16:13 19:50 05:26 WBC 8.6 9.4 RBC 3.83 L 3.72 L Hgb 11.4 L 11.1 L Hct 33.8 L 33.0 L MCV 88.3 88.6 MCH 29.7 29.8 MCHC 33.7 33.6 RDW 14.7 15.0 H Plt Count 207 221 Neut % (Auto) 90.3 H D 74.4 Lymph % (Auto) 6.2 L 15.0 L Fountain % (Auto) 2.9 L 10.5 Eos % (Auto) 0.2 L 0.0 L Baso % (Auto) 0.4 0.1 Neut # (Auto) 7800 H 7000 Lymph # (Auto) 500 L 1400 Fountain # (Auto) 200 1000 H Eos # (Auto) 0 0 Baso # (Auto) 0 0 Sodium 136 L Potassium 4.1 Chloride 102 Carbon Dioxide 26 BUN 20 Creatinine 1.21 Estimated GFR > 60.0 BUN/Creatinine Ratio 16.5 Glucose 122 H Calcium 9.1 Magnesium Total Bilirubin 1.0 AST 44 ALT 50 H Alkaline Phosphatase 49 Total Protein 6.3 Albumin 3.6 Globulin 2.7 Albumin/Globulin Ratio 1.3 Blood Type Antibody Screen 01/22/20 05:26 WBC RBC Hgb Hct MCV MCH MCHC RDW Plt Count Neut % (Auto) Lymph % (Auto) Fountain % (Auto) Eos % (Auto) Baso % (Auto) Neut # (Auto) Lymph # (Auto) Fountain # (Auto) Eos # (Auto) Baso # (Auto) Sodium 135 L Potassium 4.5 Chloride 102 Carbon Dioxide 25 BUN 18 Creatinine 1.12 Estimated GFR > 60.0 BUN/Creatinine Ratio 16.1 Glucose 126 H Calcium 9.3 Magnesium 2.1 Total Bilirubin AST ALT Alkaline Phosphatase Total Protein Albumin Globulin Albumin/Globulin Ratio Blood Type Antibody Screen Assessment & Plan Assessment and plan (1) Surgical wound dehiscence: Problem details: Pt urgently taken to the OR yesterday for abdominal wall repair and closure. Doing well this AM. Qualifiers: Encounter type: initial encounter Qualified Code(s): T81.31XA - Disruption of external operation (surgical) wound, not elsewhere classified, initial encounter Current visit: Yes Status: Acute (2) Evisceration of bowel: Problem details: Pt urgently taken to the OR yesterday for abdominal wall repair and closure. Doing well this AM. Current visit: Yes Status: Acute (3) Ileostomy in place: Problem details: Good function, stoma bar removed yesterday, pt unable to recall details of ostomy management. Needs ongoing support and teaching. Current visit: No Status: Acute (4) S/P laparotomy: Current visit: No Status: Acute (5) Essential hypertension: Problem details: Current visit: No Status: None (6) Tobacco abuse: Problem details: Ongoing counseling for smoking cessation. Pt was instructed about risks of smoking prior to surgery and resisted quitting. Current visit: No Status: None (7) History of subarachnoid hemorrhage: Problem details: Resulted in short term memory loss; impulsivity; unable to recall important details about post op care; unable to manage self care due to complexity of ostomy management, care of surgical wound, and silverman catheter care Current visit: No Status: None (8) Memory loss: Problem details: Unable to recall important details about post op care; unable to manage self care due to complexity of ostomy management, care of surgical wound, and silverman catheter care Current visit: No Status: None (9) Short-term memory loss: Current visit: No Status: Acute Assessment & Plan narrative: This is a 59 yo man who is POD# 6 s/p laparotomy, takedown of colovesicular fistula, sigmoid colectomy, small bowel resection and ileostomy creation. POD#1 s/p urgent laparotomy for surgical wound dehiscence, and evisceration of small bowel. In the OR he was found to have significant bladder distension. A silverman was replaced. He has appropriate appearing ileostomy output, and denies nausea/vomiting. His pain is at the incisional closure, but does not bother him if he is lying still. He seems confused about his ileostomy care, although he had full ileostomy teaching prior to discharge a few days ago and was approved by the ostomy nurse for managing his ileostomy on his own at home. Unfortunately he seems to have some significant short memory loss secondary to his previous brain injury. He is quite impulsive, and has difficulty remembering the details of ostomy care, and the expected postop limitations such as avoiding straining his abdominal muscles, or lifting heavy things. Plan: Advance diet as tolerated Reinforce ileostomy teaching daily Connect Silverman catheter to leg bag DVT prophylaxis P.o. pain med come with IV for breakthrough pain Ambulate 20 minutes t.i.d. Will discuss with care coordinators regarding potential temporary placement in a nursing facility for ongoing ileostomy teaching and care, Silverman management, and wound care. The patient was already discharged home once, and was unable to manage his ileostomy care, and follow his postop limitations due to his memory loss and impulsivity secondary to his prior brain injury. Time Spent With Patient Time with patient: 15-24 minutes Quality VTE Deep Vein Thrombosis/Pulmonary Embolism Present on Admission: No
[2020-01-22] MEDS: LACTOBACILLUS ACIDOPHILUS TABLET 1 EACH PO ×2 (13:03→21:02)
[2020-01-22] MEDS: ENOXAPARIN 30 MG/0.3 ML SYRINGE SUBCUT (13:04)
[2020-01-22] MEDS: PSYLLIUM HUSK 1 PACKET PO ×2 (13:04→21:01)
--- NOTE | 2020-01-22 14:10 | PC.NURSE ---
Patient declined to have leg bag placed to silverman at this time, but reviewed teaching and catheter equipment with patient along with demonstration. Patient ambulated in halls with SB assist and tolerated well, felt some pain at end of walk in abdomen and requested prn pain medication. Assisted back in to bed to rest, patient would like to try to sleep. Dressing to abdomen was changed by Dr. Stevens when she came in this morning, and gauze with paper tape in place remains intact. Ileostomy in place with appliance intact and stoma and surrounding skin WNL. Call katerin nair with plan of care.
--- NOTE | 2020-01-22 16:26 | CM.DANOTE ---
DCP/Brief: Reviewed chart. Received verbal referral this AM from Dr. Stevens re: d/c planning. Patient is a 59yr old male re-ad[facility] after surgical wound dehiscence. Patient resides on [place] and primary payor is 1)Medicare 2)Medicaid. (see previous CM assessment for details). Currently, Dr. Stevens requesting patient go to SNF for recovery. She is concerned that patient does not have enough help at home. Previous d/c patient went home and son was supposed to assist. Unclear on how long son even staying with patient. Dr. Stevens requesting patient stay locally so she can keep close eye on patient. Notified her that CERTIFIED PROFESSIONAL ERGONOMIST would check with [facility] re: bed. She agrees. Placed call to March and she is agreeable to review. Received return phone call from March indicating that they can accept but patient will not be allowed to smoke at facility. She suggest nicotine patch. Will request that CERTIFIED PROFESSIONAL ERGONOMIST/Shannon follow up with Dr. Stevens and patient in AM re: both acceptance at [facility] and inability to smoke while there. Patient not a good candidate for at this time due to limited services available on [place]. Other options include for patient to go to his son's but unclear on his actual involvement. Plus Dr. Stevens requesting patient stay local. P: Pending. Patient does not need 3dy LOS for d/c to SNF. [facility] has accepted if patient aware and agreeable. BELLA Aviles Discharge Planning/Care Management Discharge Assessment Start: 01/22/20 16:09 Freq: Status: Active Protocol: Document 01/22/20 16:09 [facility] (Rec: 01/22/20 16:26 [facility] [id number]) Discharge Planning Assessment Assigned Clamp Truck Driver BELLA Aviles Contact Information Gianni Degroot Helm (son) Advance Directives? No History Provided By Medical Record Has Patient been admitted in last 30 Yes days? Comment POD#6 from colon resection Prior Living Arrangements House Household Members friend(s) Type of transporation used prior to Relies on Others admit Comment Currrently recovering from previous surgery/colon re- section returns to hospital with post op complications. Independent with ADL's Yes Is patient alert and oriented? Yes Comment Colostomy teaching and therapy . Caregiver for Another No Patient/Family Preference [facility] Discharge Plan Home Additional Comment Patient stated he doesnt want any services to help at home. no HH and not going to a SNF. If patient plan is SNF: Has PASSR been No completed? SNF/HH Preference [facility] Contact Name/Phone March # [phone] Review Status In Process Next Review Type Continued Stay Review
[2020-01-23] VITALS (7 sets, daily range): BP systolic 104–155; BP diastolic 80–94; PULSE 56–64; RESP 16–18; TEMP 36.3–36.7; O2SAT 96–98
[2020-01-23] MEDS: OXYCODONE IR 5 MG TABLET 10 MG PO ×4 (01:37→21:35)
[2020-01-23] MEDS: SODIUM CHLORIDE 0.9% FLUSH 10 ML IV ×5 (01:37→23:37)
[2020-01-23] MEDS: PIPERACILLIN-TAZO 3.375 GM/50 ML FROZ.PIGGY IV ×4 (01:37→19:06)
--- NOTE | 2020-01-23 02:02 | PC.NURSE ---
Addendum entered by Melva Rosas R.N. 01/23/20 06:22: Patient initially denied pain but when getting out of bed began hollering and states pain is now 8/10. At rest pain severity down to 2/10; medicated with Oxycodone. Original Note: Patient is alert and oriented but due to hx brain aneurysm does have memory loss and can be forgetful as well as having mood swings. Breath sounds CTA with RA sat of 96%. HRR but bradycardic with rate in 50's. Denies nausea. BT present and abdomen is soft. Ostomy right abdomen with beefy red stoma and dark liquid stool in bag. Dressing to midline is CDI; stapled lap sites well approximated and without drainage or redness. Indwelling catheter is patent; urine is clear yellow. Able to move self in bed. Out of bed with SBA. States abdominal pain is 2/10 at rest and 8/10 with coughing; medicated with Oxycodone. Refusing to wear SCD's during the night as states they are too noisy. Fall risk score is moderate; bed alarm is activated for night time safety.
[2020-01-23 05:17] LABS: Add Manual Diff / Slide Review NO; Basophils Absolute Auto 100 /uL (0-100); Basophils Percent Auto 1.2 % (0-2); Eosinophils Absolute Auto 200 /uL (0-450); Eosinophils Percent Auto 2.1 % (2-4); Hematocrit 32.7 % (41-53); Hemoglobin 10.7 g/dL (13.5-17.5); Lymphocytes Absolute Auto 2300 /uL (1100-4500); Lymphocytes Percent Auto 30.8 % (25-40); Mean Corpuscular HGB Conc 32.7 % (30-36); Mean Corpuscular Hemoglobin 29.4 PG (26-34); Mean Corpuscular Volume 89.8 fL (80-100); Monocytes Absolute Auto 900 /uL (0-900); Monocytes Percent Auto 11.5 % (3-14); Neutrophils Absolute Auto 4000 /uL (1500-7000); Neutrophils Percent Auto 54.4 % (50-75); Platelet Count 245 X10^3/uL (150-400); Red Blood Cell Count 3.64 X10^6/uL (4.5-5.9); White Blood Cell Count 7.4 X10^3/uL (4.5-11.0)
[2020-01-23 05:27] LABS: BUN Creatinine Ratio 12.3 (6-22); Blood Urea Nitrogen 15 mg/dL (9-20); Calcium 9.3 mg/dL (8.4-10.2); Carbon Dioxide 28 mmol/L (22-32); Chloride 106 mmol/L (98-107); Estimated Glomerular Filt Rate > 60.0 mL/min (>60); Glucose 94 mg/dL (70-100); HEMOLYSIS < 15 (0-50); Magnesium 2.1 mg/dL (1.6-2.3); Potassium 4.9 mmol/L (3.4-5.1); Sodium 138 mmol/L (137-145)
[2020-01-23] MEDS: SODIUM CHLORIDE 0.9% 250 ML 21 ML IV (08:07)
[2020-01-23] MEDS: ACETAMINOPHEN 325 MG TABLET 975 MG PO ×3 (08:11→21:35)
[2020-01-23] MEDS: LACTOBACILLUS ACIDOPHILUS TABLET 1 EACH PO ×2 (08:14→21:35)
[2020-01-23] MEDS: raNITIdine 150 MG CAPSULE PO ×2 (08:14→21:35)
[2020-01-23] MEDS: TAMSULOSIN 0.4 MG CAPSULE PO (08:14)
[2020-01-23] MEDS: ENOXAPARIN 40 MG/0.4 ML SYRINGE SUBCUT (08:16)
[2020-01-23] MEDS: PSYLLIUM HUSK 1 PACKET PO ×2 (12:10→21:35)
--- NOTE | 2020-01-23 12:19 | P.PN_ITS ---
Subjective Subjective Date Patient Seen: 01/22/20 Time Patient Seen: 11:13 Interval history: No acute events overnight. Pain controlled on PO pain med. Denies nausea. Denies cough, denies fever, denies rhinorrhea, denies shortness of breath. Normal appearing ileostomy output. Exam Vital Signs (past 8 hours): - 01/23/20 05:42 01/23/20 08:00 Temperature 97.4 F L 97.9 F Pulse Rate 60 62 Respiratory Rate 16 18 Blood Pressure 132/94 H 104/82 Pulse Oximetry 97 96 Oxygen Delivery Method Room Air Oxygen Flow Rate 0 Narrative Exam Narrative: General: Alert, oriented, comfortable CARDIOVASCULAR: Regular rate. No pedal edema. RESPIRATORY: Non-tachypneic, breathing comfortably on room air. No cough, no rhinorrhea GASTROINTESTINAL: Abdomen soft and non-distended; ileostomy with thick brown stool in the bag; incision c/d/i/a : silverman in place with clear yellow urine in the bag; incision c/d/i MUSCULOSKELETAL: Equal tone and mass bilaterally. SKIN: Warm, dry, soft, appropriate color for ethnicity. No other lesions, rashes, or wounds. NEURO: Alert and Oriented X 3. No gross sensory deficits, or cognitive issues. PSYCH: Appropriate affect and mood. Objective Labs Result Diagrams: 01/23/20 05:03 01/23/20 05:03 Labs: Laboratory Results - last 24 hr 01/23/20 01/23/20 05:03 05:03 WBC 7.4 RBC 3.64 L Hgb 10.7 L Hct 32.7 L MCV 89.8 MCH 29.4 MCHC 32.7 RDW 15.0 H Plt Count 245 Neut % (Auto) 54.4 D Lymph % (Auto) 30.8 [place] % (Auto) 11.5 Eos % (Auto) 2.1 Baso % (Auto) 1.2 Neut # (Auto) 4000 Lymph # (Auto) 2300 [place] # (Auto) 900 Eos # (Auto) 200 Baso # (Auto) 100 Sodium 138 Potassium 4.9 Chloride 106 Carbon Dioxide 28 BUN 15 Creatinine 1.22 Estimated GFR > 60.0 BUN/Creatinine Ratio 12.3 Glucose 94 Calcium 9.3 Magnesium 2.1 Assessment & Plan Assessment and plan (1) Surgical wound dehiscence: Problem details: Pt urgently taken to the OR yesterday for abdominal wall repair and closure. Doing well this AM. Qualifiers: Encounter type: initial encounter Qualified Code(s): T81.31XA - Disruption of external operation (surgical) wound, not elsewhere classified, initial encounter Current visit: Yes Status: Acute (2) Evisceration of bowel: Problem details: Pt urgently taken to the OR yesterday for abdominal wall repair and closure. Doing well this AM. Current visit: Yes Status: Acute (3) Ileostomy in place: Problem details: Good function, stoma bar removed yesterday, pt unable to recall details of ostomy management. Needs ongoing support and teaching. Current visit: No Status: Acute (4) S/P laparotomy: Current visit: No Status: Acute (5) Essential hypertension: Problem details: Current visit: No Status: None (6) Tobacco abuse: Problem details: Ongoing counseling for smoking cessation. Pt was instructed about risks of smoking prior to surgery and resisted quitting. Current visit: No Status: None (7) History of subarachnoid hemorrhage: Problem details: Resulted in short term memory loss; impulsivity; unable to recall important details about post op care; unable to manage self care due to complexity of ostomy management, care of surgical wound, and silverman catheter care Current visit: No Status: None (8) Memory loss: Problem details: Unable to recall important details about post op care; unable to manage self care due to complexity of ostomy management, care of surgical wound, and silverman catheter care Current visit: No Status: None (9) Short-term memory loss: Current visit: No Status: Acute Assessment & Plan narrative: This is a 59 yo man who is POD# 7 s/p laparotomy, takedown of colovesicular fistula, sigmoid colectomy, small bowel resection and ileostomy creation. POD#2 s/p urgent laparotomy for surgical wound dehiscence, and evisceration of small bowel. In the OR he was found to have significant bladder distension. A silverman was replaced. He has appropriate appearing ileostomy output, and denies nausea/vomiting. His pain is at the incisional closure, but does not bother him if he is lying still. He is more comfortable today, and is having more normal ostomy output. The patient declines to go to a SNF or to receive home health assistance. Will work on dispo planning to home once his is tolerating a regular diet and ostomy output is <1L/24 hours. Will continue one more day of IV antibiotics for the bowel evisceration and exposure. Plan: Advance diet as tolerated Reinforce ileostomy teaching daily Connect Silverman catheter to leg bag DVT prophylaxis P.o. pain med come with IV for breakthrough pain Ambulate 20 minutes t.i.d. IV zosyn for one more day Time Spent With Patient Time with patient: 15-24 minutes Quality VTE Deep Vein Thrombosis/Pulmonary Embolism Present on Admission: No
--- NOTE | 2020-01-23 14:12 | PC.NURSE ---
Day Shift- Pt A&OX4, able to make his needs known using call light, indep in room. Pt able to properly demonstrate burping the Ileostomy bag. Pt did not want to change appliance pieces. Pt also refused abd binder, reminded pt binder is for abd splinting and reminders that he has ADL limitations with lifting, pushing, pulling. Pt does use folded blanket for abd splinting with coughing. Midline incision covered with CDI gauze, lap sites X2 with bennie intact to left and right of midline incision. Ileostomy stoma is moist and beefy red. Urinary catheter in place with overnight bag on. Pt reports 1/10 pain to abd with rest, 6-8/10 with coughing/movement, settles when in resting position again. PRN Oxycodone given at 1220 with good effect. Pt stated he has not slept well and would like to take a nap after lunch. No other voiced concerns.
[2020-01-23] MEDS: LORazepam 2 MG/ML INJ 0.5 MG IV (23:37)
--- NOTE | 2020-01-23 23:49 | PC.NURSE ---
Addendum entered by Melva Rosas R.N. 01/24/20 06:09: States he slept well. At this time declines need for pain medication. 1350cc UOP and 125cc soft stool from ostomy. Original Note: Patient is alert and oriented. Breath sounds CTA with RA sat of 98%. HRR but still bradycardic with rate in 50's. BP elevated at 148/84. Denies nausea. States he is tolerating low residue diet without problems. BT present and has soft stool present in ostomy bag. Dressing to abdominal midline is CDI. Stapled incision on each side of dressing are well approximated and without redness or drainage. Also has small abrasion to left side of dressing. Moving self in bed and when out of bed at night is provided SBA for safety. Refusing SCD's at night as states machine is too noisy and he is unable to sleep. Denies pain at present time. Complains of not being able to sleep past few nights so agreeable to trying Ativan; administered IV as ordered. Fall risk score is moderate; bed alarm activated for night time.
[2020-01-24] MEDS: SODIUM CHLORIDE 0.9% FLUSH 10 ML IV ×2 (02:43→08:42)
[2020-01-24] MEDS: PIPERACILLIN-TAZO 3.375 GM/50 ML FROZ.PIGGY IV ×2 (02:43→08:42)
[2020-01-24 06:00] VITALS: BP 141/77; PULSE 51; RESP 16; TEMP 36.7; O2SAT 98
[2020-01-24 08:00] VITALS: BP 148/94; PULSE 53; RESP 16; TEMP 36.6; O2SAT 99
[2020-01-24 08:50] VITALS: O2SAT 99
[2020-01-24] MEDS: ACETAMINOPHEN 325 MG TABLET 975 MG PO (08:52)
[2020-01-24] MEDS: TAMSULOSIN 0.4 MG CAPSULE PO (08:52)
[2020-01-24] MEDS: raNITIdine 150 MG CAPSULE PO (08:52)
[2020-01-24] MEDS: ENOXAPARIN 40 MG/0.4 ML SYRINGE SUBCUT (08:53)
[2020-01-24] MEDS: LACTOBACILLUS ACIDOPHILUS TABLET 1 EACH PO (08:53)
[2020-01-24] MEDS: PSYLLIUM HUSK 1 PACKET PO (08:53)
--- NOTE | 2020-01-24 11:23 | P.DS_ITS ---
History of Present Illness History of Present Illness Chief complaint: Post op complications Narrative: 59 yo man discharged yesterday by Dr. Valentine, on POD#5 s/p exlap, returns today by airlift from [place] for evisceration. He says he saw a burst of fluid last night from his midline incision, and then this morning saw a pink bubble in the incision. He sent a picture of his wound to his son, who sent the picture to Dr. Valentine. After reviewing the picture which looked like small bowel evisceration, I called the patient and told him to take a helicopter to the ER. He denies significant pain. He states he has had good ileostomy output, denies nausea, vomiting, fevers. ROS: as per HPI PE: GENERAL: Alert, oriented, comfortable, pressured speech HENT: Normocephalic, atraumatic. Hearing intact. Oral mucosa is pink and moist. EYES: Conjunctiva pink, sclera white, no periorbital swelling. CARDIOVASCULAR: Regular rate. No pedal edema. RESPIRATORY: Non-tachypneic, breathing comfortably on room air. GASTROINTESTINAL: 2cm gap in lower midline skin incision with knuckle of small bowel poking through, eviscerated bowel is pink, well perfused, and peristalsing GENITALURINARY: No flank tenderness. MUSCULOSKELETAL: Equal tone and mass bilaterally. SKIN: Warm, dry, soft, appropriate color for ethnicity. No other lesions, rashes, or wounds. NEURO: Alert and Oriented X 3. No gross sensory deficits, or cognitive issues. PSYCH: Appropriate affect and mood. Discharge Providers Provider Date of admission: 01/21/20 12:39 Discharge Date: 01/24/20 Primary care physician: Volodymyr Knight MD Consults: 01/21/20 13:32 Consult to Respiratory Therapy Evaluate & Treat Comment: Physician Instructions: Evaluate and treat 01/21/20 16:29 Consult to Discharge Planning Routine Comment: Discharge provider: Venessa Stevens MD Summary Hospital Course Discharge Diagnosis: Abdominal surgical wound dehiscence, urinary retention Hospital Course: This patient was brought into the hospital emergently because of abdominal wound dehiscence and evisceration of his small intestine. He was taken urgently to the operating room, where his bowel was evaluated, and his surgical wound was closed. He was found to have significant bladder distension, and an indwelling silverman was placed in the bladder. He had good return of bowel function, and good ostomy output over the following two days, and pain was well controlled on PO pain meds. He was discharged with silverman catheter and leg bag. Will plan to keep catheter for at least two weeks, preferably four. The patient will follow up with Dr. Briggs for management of urinary retention, and for silverman removal. Status at Discharge Cognitive/behavioral status at discharge: at baseline, oriented Functional status at discharge: independent ambulation Overall status at discharge: patient is progressing back to baseline Time Spent with Patient Time spent: Greater than 30 minutes Time spent discussing smoking cessation with patient: more than 10 minutes Exam Vital Signs (past 8 hours): - 01/24/20 06:00 01/24/20 08:00 01/24/20 08:50 Temperature 98.0 F 97.8 F Pulse Rate 51 L 53 L Respiratory Rate 16 16 Blood Pressure 141/77 H 148/94 H Pulse Oximetry 98 99 99 Oxygen Delivery Method Room Air Oxygen Flow Rate 0 Narrative Exam Narrative: General: Alert, oriented, comfortable CARDIOVASCULAR: Regular rate. No pedal edema. RESPIRATORY: Non-tachypneic, breathing comfortably on room air. No cough, no rhinorrhea GASTROINTESTINAL: Abdomen soft and non-distended; ileostomy with thick brown stool in the bag; incision c/d/i/a : silverman in place with clear yellow urine in the bag; incision c/d/i MUSCULOSKELETAL: Equal tone and mass bilaterally. SKIN: Warm, dry, soft, appropriate color for ethnicity. No other lesions, rashes, or wounds. NEURO: Alert and Oriented X 3. No gross sensory deficits, or cognitive issues. PSYCH: Appropriate affect and mood. Objective Labs Result Diagrams: 01/23/20 05:03 01/23/20 05:03 Discharge Plan Discharge Plan Patient Disposition: Home Discharge comment: Drink plenty of water to keep yourself hydrated. If you feel dry mouth or notice your urine becomes darker, increase your fluid intake. Avoid eating foods that are hard to digest, including uncooked vegetables, fruit peels, and hard meats such as steak and pork. You will receive a copy of Low Residue diet recommendations that will give more specifics about this. Take a probiotic twice daily such as Culturelle, or Lactobacillus which you can purchase at a pharmacy. Or you may take a serving of yogurt with active cultures twice daily. Your ostomy output should remain less than 1L per day. If you notice it is thinner or more copious, or you are feeling dehydrated, you may take one dose (2mg) of Immodium which can be purchased over the counter. If thin out put >1L per day continues, you may take Immodium 2mg two to three times per day, and closely observe how the output responds. If your ostomy output stops altogether, do not take any more immodium and call [facility] to speak with the valuation consultant doctor. Take Metamucil (or other fiber supplement such as Benefiber) 2tspn in 8 oz water twice daily -- may go up to three times daily if needed to help thicken the ostomy output. Take your prescription pain medication as needed so you are able to cough, take deep breaths, sleep well, and get up to walk around. Do not take it if you do not need to. You may also take Tylenol for pain, to help reduce the amount of narcotic you need to take. Do not take more than 3000mg of Tylenol in 24 hours. Keep active with light activity such as gentle exercise and taking walks. Avoid lifting over 10lbs, abdominal core work, anything that strains your abdomen, or any strenuous activity. Avoid being sedentary for prolonged periods. You may shower. After showering, keep a dry dressing over your incisional wounds as needed. If you notice any redness or drainage from the wounds, call our office and speak to Dr. Stevens, or the doctor valuation consultant. Continue to follow the instructions given by the ostomy nurse regarding care and management of your ostomy site. Please wear your abdominal binder as much as possible to remind you to avoid straining the abdominal wall. Please call Dr. Briggs's office on Monday to make a follow up appointment. He will help with silverman management and will remove it in 2-4 weeks. I prefer you keep the silverman in place as long as possible up to four weeks. I will keep in contact with Dr. Briggs regarding management. You will be given a staple remover and instructions on removing bennie. Your bennie should be removed two weeks after the date of your second surgery. This will be on February 03. Normally we remove bennie and have a follow up visit in the office at the two week yolis. We will keep in contact by phone and email. I f a follow up visit is needed, we will schedule one. If we are able to safely manage without an in-person visit, we will do so in order to follow the social distancing recommendations, and to reduce the risk viral spread to you and others at this time. Please email me at any time with non-urgent questions. My secure email is [email or web address]. You may put the word (SECURE) in parenthesis in the subject line to ensure the email field observer will process it as a private encrypted message. If you have urgent questions or concerns, please call the [facility] office phone number, and go through the series of prompts until you reach the option to contact the surgeon valuation consultant. If you have life threatening symptoms, or a medical emergency please call 07-10 or come into the ER. Discharge orders & Medications Prescriptions: Continued atorvastatin [Lipitor] 80 MG tablet 80 mg PO HS Qty: 90 RF: 1 Culturelle 10 billion cell capsule 1 cap PO BID Qty: 60 RF: 0 lidocaine 5 % Adhesive Patch,Medicated 1 patch topical DAILY Qty: 15 RF: 0 acetaminophen 325 mg Tablet 975 mg PO TID MDD 9 tabs Qty: 120 RF: 0 tamsulosin [Flomax] 0.4 mg Capsule 0.4 mg PO DAILY Qty: 60 RF: 0 oxycodone 5 mg tablet See Rx Instructions .ROUTE .COMPLEX PRN (Reason: painful procedure) Qty: 20 RF: 0 famotidine 20 mg tablet 20 mg PO BID Qty: 60 RF: 6 Discontinued diphenoxylate-atropine 2.5-0.025 mg Tablet 1 tab PO TID Qty: 90 RF: 0 diphenoxylate-atropine 2.5-0.025 mg tablet See Rx Instructions .ROUTE .COMPLEX Qty: 60 RF: 0 Follow up/Referrals: Juliana Briggs MD [Physician] - (Please call Dr. Briggs's office on Monday to make a follow up appointment for silverman management and removal.) Venessa Stevens MD [Physician] - (Contact Dr. Stevens by email and phone over the next week to determine appropriate follow up. We will try to delay follow up until after the viral scare has passed to reduce your social contact and risk of viral spread. If any concerns arise that require an in-person follow up, an appointment in our office will be scheduled. ) Volodymyr Knight MD [Primary Care Provider] - Diet/Activity/Treatments Diet: Diet as Tolerated Diet comment: Low residual/low fiber diet Activity: Avoid lifting over 10 lbs; avoid straining abdominal muscles; avoid sit ups, crunches, core workout, for six weeks from the date of surgery (restrictions apply until second week of February). Ok to do light activity such as taking walks. Catheter: 2-way Silverman Catheter comment: Silverman to remain in place with leg bag until follow up Skin/Wound/Dressing Care Report to your healthcare provider any signs of infection, such as:: chills, fever, night sweats, increased pain, unusual drainage and unusual redness Dressing: Ok to remove dressing and leave ostomy pouch in place to shower; do not take a tub bath or submerge surgical wounds in water. Pat incisions dry and remove/replace ostomy pouch after shower as needed. Replace dry dressings over skin bennie as needed. Visit Report/Discharge Packet Instructions: How to Care for Your Silverman Catheter -- Male, How to Care for Your Colostomy or Ileostomy, Low-Fiber/Low-Residue Diet Visit Report Forms: Patient Portal/API, Stroke Signs & Symptoms Discharge Data Primary Care Provider: Volodymyr Knight Discharges patient from system. Discharge Date/Time: 01/24/20 14:25 Quality VTE Deep Vein Thrombosis/Pulmonary Embolism Present on Admission: No
[2020-01-24] MEDS: OXYCODONE IR 5 MG TABLET 10 MG PO (12:32)
--- NOTE | 2020-01-24 13:23 | CM.DPNOTE ---
DCP Cont: According to LASHONDA Piper; Dr Stevens has discharged pt home today and pt remains agreeable to this plan, still refusing home health and SNF. Son driving from [place], [place] today w/the goal of making it on the [address] boat back to [place], pt will have priority boarding pass. This PROCESS CONTROL MANAGER attempted a visit and pt was sleeping soundly; LASHONDA Piper explains no reason to wake patient at this time, she will alert PROCESS CONTROL MANAGER if DC needs or concerns arise. P: DC home w/son via pov/ferry, living w/roommate, refusing HH/SNF. [facility] at [facility] updated BELLA Magana
--- NOTE | 2020-01-24 13:30 | PC.NURSE ---
Day Shift- Per conversation with Dr. Stevens this AM, Dr. Stevens removed staple from abd from first abd surgery and had pt demonstrate removal of another staple. Pt's son Zane driving [place] from [place] to pick pt up and take him home. Planning of taking [address] to [place]. Pt pre-medicated with PRN Oxycodone prior to discharge for abd pain with movement.
--- NOTE | 2020-01-24 14:21 | PC.NURSE ---
DISCHARGE: PATIENT QUICKLY UNDERSTOOD LEGBAG TEACHING, AND WAS ABLE TO DO SO INDEPENDENTLY. HE CHANGED HIS OSTOMY POUCH AND STATES HE FEELS COMFORTABLE CHANGING THE WAFER AT HOME. THE STOMA IS BEEFY RED AND THE WAFER IS CDI. PATIENT REPORTS UNDERSTANDING OF HIS DC PAPERWORK, WAS GIVEN A STAPLE REMOVER DEVICE PER DR. KO, AND A HANDOUT ON HOW TO DO IT. PER REPORT, DR. KO TAUGHT HIM HOW THIS MORNING. PRIORITY BOARDING PASS PROVIDED TO PATIENT. PATIENT LEFT W/ RAIL OPERATOR ESCORT TO SON'S VEHICLE WAITING OUTSIDE TO CATCH THE 3:[address] TO [place].
== END 2020-01-24 14:25 | disposition home or self-care (01) | DRG 909 ==
LOC: ED 12:38 → AC 12:40
PROVIDERS: Admitting Provider Surgery; Emergency Provider Emergency Medicine; PCP Family Medicine; Referring Provider Emergency Medicine; Visit Provider Surgery
PROC: 0JQ80ZZ Repair Abdomen Subcutaneous Tissue and Fascia, Open Approach (ICD-10-PCS; CPT 49000; principal; 2020-01-21 13:00)
DX: T81.32XA Disruption of internal operation (surgical) wound, not elsewhere classified, initial encounter (principal)
CPT/HCPCS: 36415; 80048; 80053; 83735; 85025; 86850; 86900; 86901; 94760; 99283; C9290; J0131; J1170; J1650; J2060; J2250; J2543; J2704; J3010

== ENCOUNTER 2020-05-15 08:57 | Day surgery (SDC) | payer MEDICARE, MEDICAID, SELFPAY ==
[2020-04-07 13:21] VITALS: BMI 25.8
[2020-05-15] VITALS (9 sets, daily range): BP systolic 152–183; BP diastolic 105–122; PULSE 64–77; RESP 7–23; TEMP 36.3–36.7; O2SAT 93–100; BMI 28.7
[2020-05-15] MEDS: SODIUM CHLORIDE 0.9% 1,000 ML 200 ML IV (10:06)
--- NOTE | 2020-05-15 11:06 | PM.PREOP ---
Pre-operative Note COVID-19 COVID-19 status: Negative Result date/Date tested (Pos, Neg/Pending): 05/13/20 Interval Note History & Physical reviewed/Exam performed by Physician: Yes Changes to H&P: No ASA Class (for procedural sedation): III
--- NOTE | 2020-05-15 11:08 | P.OP.ENDO_ITS ---
Operative Date/Time/Diagnoses Date of procedure: 05/15/20 Time of procedure: 11:08 Pre-op diagnosis: history of colon resection with diverting ostomy, follow up colonoscopy prior ileostomy takedown Post-op diagnosis: other (diversion colitis; patent anastomosis with some granu lation tissue) Procedure & Clinicians Study performed: Colonoscopy Procedural sedation performed the endoscopist Indications: 59 yo man with history of colovesicular fistula, now s/p colon resection and fistula takedown with diverting ileostomy. Surgeon: Venessa Stevens Procedure Notes SCOAP/Timeout: performed Procedure in detail: The patient was brought to the room and placed in left lateral decubitus position with all bony prominences padded. A time-out was performed and then the patient was given procedural sedation starting with [4] mg of Versed and [100] mcg of fentanyl. Total of 6 mg of Versed and 200 micro g of fentanyl were given for the entire procedure. Vitals were monitored throughout the procedure and remained stable. Once adequately sedated, the procedure was begun. A rectal exam was performed revealing [no abnormalities]. The colonoscope was then introduced to the rectum and advanced to the cecum in the usual fashion. There was a moderate amount of stool and mucus in the colon, due to the fact the patient has a diverting ileostomy and was only prepped with enemas. I was able to power wash most of this down in order to evaluate for any moderate to large-sized lesions. Anything smaller than 5 mm may be missed due to the poor prep of the colon. He had a moderate amount of diversion colitis, as expected, evidence by friable mucosa throughout the colon. []The cecum was identified by the appendiceal orifice, the mucosal tri-fold, and the ileocecal valve. The scope was then retracted while rotating side to side and examining each mucosal fold. This sigmoid anastomosis was evaluated. It was patent, not stenotic, and had a small amount of granulation tissue. [] At the conclusion of the procedure retroflexion was not performed because of the friability of the rectum. The anal verge was examined, and [small grade 1-2 internal hemorrhoids without stigmata of bleeding were seen]. The scope was then withdrawn from the rectum the procedure was concluded. The patient tolerated the procedure well and was transferred to the PACU in stable condition. Scope withdrawal time: 9 Sedation minutes: 25 Findings: colitis (Expected diversion colitis) Specimen(s): none sent Complications: none Impression: No obvious masses seen, moderately poor prep due to diverting ileostomy, diversion colitis throughout the colon as expected, patent anastomosis with some granulation tissue Post-procedure Recommendations: Colonscopy in 5 years (Anything smaller than 5 mm would have been missed due to the poor prep, and therefore repeat colonoscopy should be done in 5 years) Follow up: as needed Disposition: PACU
[2020-05-15] MEDS: MIDAZOLAM 5 MG/5 ML VIAL IV (11:22)
[2020-05-15] MEDS: fentaNYL 250 MCG/5 ML INJ IV (11:22)
--- NOTE | 2020-05-15 11:56 | SUR.PHASEI ---
[address] Stevens here, talking with patient, answering questions. Air pressure in ostomy bag released. Brown liquid stool in the bag. Dr. Stevens aware of VS, said that his BP was acceptable and gave no orders. 1150 HOB elevated, water given.
--- NOTE | 2020-05-15 12:03 | SUR.PHASEI ---
Discussed BP with patient, states that he is monitoring his BP with his primary doctor. He has medications which he has not taken today. Encouraged him to take his meds as soon as he has access to them.
--- NOTE | 2020-05-15 12:11 | SUR.PHASEI ---
1205 to [employer], stated that he felt the need to sit on the toilet. Passed flatus, Gave him his products to deal with his ostomy bag. Asif, oriented, stable on feet. Tolerated PO well.
--- NOTE | 2020-05-15 12:39 | SUR.PHASEII ---
Pt in BR, mucous/stool from rectum, pt let air out of ostomy. BP still elevated. sipping juice awaiting ride to show.
--- NOTE | 2020-05-15 14:04 | SUR.PHASEII ---
1315 My son has been out front waiting can I go now? I asked the pt if he was at the main entrance or ER and he said Main, we looked for his ride he wasn't there, he said I have a text he was here, then he said that he was a minute out, but that could be he is in [place]. I asked the pt to come back to the [employer] he refused, I am not going back there, I'll just stay right here till my son comes. Ligia called and notified. Ligia took over care of pt in the front lobby.
== END 2020-05-15 13:15 | disposition home or self-care (01) ==
PROVIDERS: PCP Family Medicine; Referring Provider Surgery; Visit Provider Surgery
PROC: 0DJD8ZZ Inspection of Lower Intestinal Tract, Via Natural or Artificial Opening Endoscopic (ICD-10-PCS; CPT 45378; principal; 2020-05-15 10:45)
DX: Z09 Encounter for follow-up examination after completed treatment for conditions other than malignant neoplasm (principal); Z87.19 Personal history of other diseases of the digestive system; Z93.2 Ileostomy status; F17.210 Nicotine dependence, cigarettes, uncomplicated; K52.89 Other specified noninfective gastroenteritis and colitis
CPT/HCPCS: 45378; 99152; J2250; J3010

== ENCOUNTER → 2020-06-25 09:36 | Outpatient (CLI) | payer MEDICARE, MEDICAID, SELFPAY ==
[2020-04-07 13:21] VITALS: BMI 25.8
--- NOTE | 2020-06-25 09:38 | DI.RAD.S_ITS ---
PROCEDURE: FL ABDOMEN 1V (BARIUM ENEMA) INDICATIONS: evaluate distal colon anastomosis TECHNIQUE: One view of the abdomen acquired. COMPARISON: None. FINDINGS: Surgical changes and devices: None. Bowel: Bowel gas pattern is normal except for moderate stool within the left colon in this patient who has undergone prior right lower quadrant ostomy placement. He reported bowel movement this morning, and incomplete bowel preparation procedure. Soft tissues: No suspicious abdominal calcifications. Visualized solid organ contours appear normal in size. Bones: No suspicious bony lesions. IMPRESSION: Retained stool within the left colon, right lower quadrant ostomy site. The patient will continue bowel prep with anticipated repeat attempt at retrograde enema tomorrow. Dictated by: Jevon Aguilera M.D. on 06/25/2020 at 12:03 Approved by: Jevon Aguilera M.D. on 06/25/2020 at 12:05
--- NOTE | 2020-06-25 09:38 | DI.US.S_ITS ---
PROCEDURE: US ABDOMEN LIMITED INDICATIONS: Bilateral groin US. The clinical history states left lower quadrant pain and the study is requested to evaluate for bilateral groin abnormality. TECHNIQUE: Real-time focused scanning was performed of the inguinal region, with image documentation. COMPARISON: [facility], CT, CT ABDOMEN PELVIS W CON, 09/14/2019, 15:06. [facility], CT, CT ABDOMEN PELVIS WO/W CON, 08/14/2019, 14:14. [facility], CT, CT ABDOMEN PELVIS WO/W CON, 05/28/2018, 10:16. FINDINGS: The patient declined to proceed with right-sided ultrasound. Left-sided groin region ultrasound shows a left-sided inguinal hernia containing bowel extending through a 2.6 cm defect at the upper inguinal canal, mobile, without evidence of incarceration or strangulation. The patient terminated the study prior to right-sided evaluation according to the surgery specialist notes. IMPRESSION: Unilateral left-sided evaluation as discussed above. Bowel containing left inguinal hernia is present. There is no suspicion for incarceration or strangulation. Dictated by: Jevon Aguilera M.D. on 06/25/2020 at 10:36 Approved by: Jevon Aguilera M.D. on 06/25/2020 at 10:41
== END ==
PROVIDERS: PCP Family Medicine; Referring Provider Family Medicine; Visit Provider Surgery
DX: R10.32 Left lower quadrant pain (principal); K40.90 Unilateral inguinal hernia, without obstruction or gangrene, not specified as recurrent; Z90.49 Acquired absence of other specified parts of digestive tract
CPT/HCPCS: 74018; 76705

== ENCOUNTER → 2020-06-29 13:15 | Outpatient (CLI) | payer MEDICARE, MEDICAID, SELFPAY ==
[2020-04-07 13:21] VITALS: BMI 25.8
--- NOTE | 2020-06-29 | DI.RAD.S_ITS ---
PROCEDURE: FL ABDOMEN 1V (BARIUM ENEMA) INDICATIONS: BARIUM ENEMA TECHNIQUE: One view of the abdomen acquired. COMPARISON: [facility], CT, CT ABDOMEN PELVIS WO/W CON, 08/14/2019, 14:14. [facility], CT, CT ABDOMEN PELVIS W CON, 09/14/2019, 15:06. [facility], RF, FL ABDOMEN 1V (BARIUM ENEMA), 06/25/2020, 9:17. FINDINGS: Surgical changes and devices: Right lower quadrant ostomy is again noted. Bowel: Bowel gas pattern is nonobstructive. There is paucity of gas in the region of the colon. Suggestion of possible fecal material in the descending colon which is not as conspicuous as the prior study dated June 25, 2020. Soft tissues: No suspicious abdominal calcifications. Visualized solid organ contours appear normal in size. Bones: No suspicious bony lesions. IMPRESSION: Abdomen without acute radiographic abnormalities. Possible retained stool within the left colon, less conspicuous on today's evaluation. A barium enema was initially scheduled; however, the patient reported small amounts of fecal material prior to today's evaluation during his bowel prep (fleets enemas) last night. In light of this procedure being performed to determine if patient can have a colostomy takedown and to rule out presence of a fistula, the barium enema was not performed and the patient was advised to continue with his bowel prep until no fecal material is present. Of note, the patient reported that he initially had a few bowel movements a short time period after his surgery which then turned to mucous. However, he reports presence of fecal material during his bowel prep for the previously scheduled barium enema examination on June 25, 2020. Dictated by: Brian Veliz M.D. on 06/29/2020 at 18:18 Approved by: Brian Veliz M.D. on 06/29/2020 at 18:26
== END ==
PROVIDERS: PCP Family Medicine; Referring Provider Family Medicine; Visit Provider Surgery
DX: R10.32 Left lower quadrant pain (principal); Z90.49 Acquired absence of other specified parts of digestive tract
CPT/HCPCS: 74018

== ENCOUNTER → 2020-07-02 08:05 | Outpatient (CLI) | payer MEDICARE, MEDICAID, SELFPAY ==
[2020-04-07 13:21] VITALS: BMI 25.8
--- NOTE | 2020-07-02 | DI.RAD.S_ITS ---
PROCEDURE: FL BARIUM ENEMA INDICATIONS: LEFT INGUINAL PAIN POST COLECTOMY COMPARISON: [facility], CT, CT ABDOMEN PELVIS W CON, 09/14/2019, 15:06. FINDINGS: KUB: Preprocedural telepathist film demonstrates a normal bowel gas pattern, with an ostomy site superimposed on the right lower quadrant iliac wing area. No suspicious abdominal calcifications. Visualized solid organ contours appear normal in size. No suspicious bony lesions. Colon: There is adequate opacification of the entire colon, and note is made of mild diverticulosis at the sigmoid colon and distal margin of the contiguous descending colon. There also is mild diverticulosis involving the proximal ascending colon just above the cecum. No evidence of contained extravasation or abnormal morphology in the area of reported prior surgical intervention in the sigmoid area.. No strictures or extrinsic mass effects are identified. No colonic fistulae or perforations. Colon caliber appears normal. IMPRESSION: No contraindication to anticipated surgical intervention for take-down of ileostomy. No visualized evidence of abnormal morphology at the sigmoid colon that would indicate contained perforation postoperatively. Mild diverticulosis remains at the sigmoid colon proximally, and also the proximal ascending colon. No evidence of diverticulitis at this time. Dictated by: Jevon Aguilera M.D. on 07/02/2020 at 10:22 Approved by: Jevon Aguilera M.D. on 07/02/2020 at 10:26
== END ==
PROVIDERS: PCP Family Medicine; Referring Provider Surgery; Visit Provider Surgery
DX: R10.32 Left lower quadrant pain (principal); G89.18 Other acute postprocedural pain; K57.30 Diverticulosis of large intestine without perforation or abscess without bleeding; K40.90 Unilateral inguinal hernia, without obstruction or gangrene, not specified as recurrent; Z93.2 Ileostomy status; Z90.49 Acquired absence of other specified parts of digestive tract; Z72.0 Tobacco use
CPT/HCPCS: 74270; 99214

== ENCOUNTER 2020-08-12 09:15 | Inpatient (IN) | payer MEDICARE, MEDICAID, SELFPAY ==
[2020-04-07 13:21] VITALS: BMI 25.8
[2020-08-05 09:36] VITALS: BMI 28.7
[2020-08-12] VITALS (15 sets, daily range): BP systolic 138–174; BP diastolic 81–99; PULSE 58–76; RESP 12–23; TEMP 36.3–37.2; O2SAT 16–99; BMI 29.0
--- NOTE | 2020-08-12 | PATH_ITS ---
[facility] Accession Number: [id number] . 01 Material submitted: . colon - OSTOMY . 01 Clinical history: . ILEOSTOMY CLOSURE . 02 Diagnosis: Stoma, Ileostomy Closure: Consistent with stoma. No evidence of neoplasm. MRV 08/14/2020 1221 Local . 02 Electronically signed: . Luis Miguel yVas MD, PhD, Pathologist NPI- [id number] . 01 Gross description: . Received in formalin, labeled ostomy, and consists of a 6.5 cm in length by 3.0 cm in diameter portion of small intestine with a centrally located 2.5 x 2.2 cm stoma plate. Both margins are stapled. The serosa is red-pink and smooth with focal areas of fibrinous adhesions. Opening reveals a mack-pink mucosa with normal mucosal folds. The mucosa at the stoma plate is pink-red and hemorrhagic. The wall thickness measures 0.2 cm. Patching Machine Operator sections are submitted. . A1: territory representative perpendicular sections of stapled margins (blue and black). A2: territory representative stroma plate. (EA:[id number]) /MRV 08/13/2020 1049 Local . 02 Pathologist provided ICD-10: Z93.2 . 02 CPT . 536270 Performed at: 01 [facility] [address], [place], [place] [id number] MD Kendrick Monique MD Phone: [phone] Performed at: 02 [facility] [address] [place], [place] [id number] MD Mila Waggoner MD Phone: [phone]
[2020-08-12] MEDS: ACETAMINOPHEN 325 MG TABLET 975 MG PO ×2 (09:36→22:03)
[2020-08-12] MEDS: LACTATED RINGERS 1,000 ML 42 ML IV ×2 (09:37→12:28)
--- NOTE | 2020-08-12 09:41 | P.HP_ITS ---
History of Present Illness History of Present Illness Date Patient Seen: 08/12/20 Time Patient Seen: 10:42 Chief complaint: Ileostomy closure Narrative: This patient is here for ileostomy takedown. To review, this is a 59-year-old man with history of bladder cancer, diverticulosis, traumatic brain injury, appendectomy, melanoma, TURBT, hypertension, hyperlipidemia, diverticulitis and colovesicular fistula status post colovesicular fistula takedown, sigmoid colectomy and diverting ileostomy. His colon resection was done in December, and is here to have a preop discussion for ileostomy takedown. He has had a colonoscopy and barium enema since his last visit. He is now prepared for ileostomy takedown. He had a groin US to confirm left inguinal hernia. Interval studies: LLQ US: bowel containing inguinal hernia Colonoscopy: no polyps; diversion colitis BE: no leak Interval events: He reports nothing new since his last visit to see me in June. He has had to upsize his ostomy appliance in the past week due to enlarging stoma. He denies any parastomal bulging, or bulging from his midline incisional scar. He does have the left inguinal hernia, but he feels it is not bothering him too much. ROS: Thirteen system review is negative other than as mentioned below and in HPI. PE: GENERAL: Well groomed and cooperative. Appears non-toxic. Appears stated age. HENT: Normocephalic, atraumatic. Hearing intact. Oral mucosa is pink and moist. EYES: Conjunctiva pink, sclera white, no periorbital swelling. CARDIOVASCULAR: Regular rate. No pedal edema. RESPIRATORY: Non tachypneic, breathing comfortably on room air. GASTROINTESTINAL: Abdomen soft and non-distended; ostomy pink, patent, productive. Lower midline incision well healed without hernia. GENITALURINARY: No flank tenderness. Left groin inguinal floor laxity MUSCULOSKELETAL: Equal tone and mass bilaterally. SKIN: Warm, dry, soft, appropriate color for ethnicity. No other lesions, rashes, or wounds. NEURO: Alert and Oriented X 3. No gross sensory deficits, he does have short- term memory problems PSYCH: Appropriate affect and mood. Patient History Medical History Chronic obstructive pulmonary disease with acute exacerbation (12/18/15) Colovesical fistula (Inactive) Diverticulitis (Acute) Evisceration of bowel (Inactive) 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) HLD (hyperlipidemia) (Acute) Intracranial hemorrhage (Inactive) Malignant neoplasm of urinary bladder (11/09/15) Subarachnoid hemorrhage (Inactive) Subdural hemorrhage (Inactive) Surgical wound dehiscence (Inactive) Surgical History History of surgery (Acute 01/15/20) Hx of craniotomy (Acute) S/P exploratory laparotomy (Acute 01/21/20) Status post appendectomy Status post transurethral resection of prostate Family & Social History Family History Brother Heart disease Hypertension High cholesterol Brother Heroin addiction Heart disease Hypertension High cholesterol Mental health problem Father Heart disease Hypertension High cholesterol Social History: household members children,friend(s) Prior Living Arrangements RV Safety & Behavioral: Feels Safe in Current Yes Environment Been Physically Hurt or No Threatened By a Person Suicidal Ideation Description None Suicide Plan Description No Plan Tobacco & Substance use: Tobacco type cigarettes Smoking Status Current every day smoker Smoking packs per day 0.5 alcohol intake current alcohol intake frequency holiday/special occasion Substance Use Type marijuana Meds Home Medications and Allergies Home Medications Medication Instructions Recorded Confirmed Type atorvastatin [Lipitor] 80 mg PO HS #90 tabs 05/12/17 08/05/20 Rx acetaminophen 975 mg PO TID #120 tab MDD 9 tabs 01/19/20 08/05/20 Rx famotidine 40 mg PO BID 08/05/20 08/05/20 History loperamide 4 mg PO BID 08/05/20 08/05/20 History acyclovir 800 mg PO DAILY PRN 08/12/20 08/12/20 History Allergies Allergy/AdvReac Type Severity Reaction Status Date / Time No Known Drug Allergies Allergy Verified 08/12/20 09:42 Objective Imaging Barium enema: My impression: No leak Radiologist's impression: No leak Assessment & Plan Assessment and plan (1) Essential hypertension: Problem details: Status: None (2) Mild persistent asthma without complication: Problem details: RT consult, patient using incentive spirometer 10 times an hour Status: None (3) Tobacco abuse: Problem details: Ongoing counseling for smoking cessation. Pt was instructed about risks of smoking prior to surgery and resisted quitting. Status: None (4) History of subarachnoid hemorrhage: Problem details: Resulted in short term memory loss; impulsivity; unable to recall important details Status: None (5) Memory loss: Problem details: Unable to recall important details Status: None (6) S/P laparotomy: Status: Acute (7) Ileostomy in place: Problem details: This is a 59 yo man with the above history, here for ileostomy takedown surgery. All preop studies have been completed, and the risks and benefits of ileostomy takedown have been discussed with the patient including risk of bleeding, infection, damage to nearby structures, bowel obstruction, need for additional surgery, need for replacement of ostomy, prolonged hospital stay, prolonged ileus, risk of anesthesia, scarring, wound infection. The patient desires to proceed with surgery. Status: Acute (8) S/P colon resection: Status: Acute (9) Left inguinal hernia: Status: Acute COVID-19 COVID-19 status: Negative Result date/Date tested (Pos, Neg/Pending): 08/10/20
--- NOTE | 2020-08-12 10:08 | SUR.PREOP ---
States that he is feeling better with IV fluid. States that he smokes 3 cigarettes/Monday, has a strong odor of cigarette smoke. Reports that he smoked marijuana last Monday. Reports electrical storms in his head since the aneurysm - states it islike an itch that can't be satisfied. Rubbing head frequently.
[2020-08-12] MEDS: PIPERACILLIN-TAZO 3.375 GM/50 ML FROZ.PIGGY IV (10:57)
--- NOTE | 2020-08-12 11:36 | SUR.OPER ---
Supine on padded OR bed, head on pillow, arms secured on padded arm boards at <90 degrees abduction, legs uncrossed, safety belt at thigh, tape over blanket over lower legs.
[2020-08-12] MEDS: BUPIVACAINE 0.25% W/ EPI 30 ML VIAL INJ (11:54)
--- NOTE | 2020-08-12 13:31 | PM.OP.1 ---
Operative Date/Time/Diagnoses Date of procedure: 08/12/20 Time of procedure: 13:31 Pre-op diagnosis: loop ileostomy Post-op diagnosis: same Procedure & Clinicians Procedure: Small-bowel resection including ostomy Small-bowel anastomosis Fascial closure in layers Same procedure as scheduled: Yes Indications: Presence of ileostomy, no longer needed because colorectal anastomosis has healed Surgeon: Venessa Callahan Yes if Unassisted: Yes Anesthesia Type: General Operative Notes Findings: Intact small-bowel in good condition, with no leaking from anastomosis once ileostomy was removed and bowel was reanastomosed Specimen(s): other (Ileostomy) Estimated Blood Loss (mL): 2 Blood products transfused: none Procedure in detail: The patient was brought to the operating room, placed supine on the operating table, and sequential compression devices were placed on both legs and turned on. Appropriate perioperative antibiotics were given. General anesthesia was induced by the anesthesiologist and the patient was intubated. The ileostomy pouch was removed, and the abdomen was then prepped and draped in sterile fashion, and a surgical time-out was conducted. At this point local anesthetic was injected using 0.25% Marcaine with epi, around the edges of the ileostomy in the skin. Circumferential incision was made using cautery on cut in the skin about 1 mm outside the mucocutaneous border of the ileostomy. Dissection was carried down through the skin in subcutaneous tissue, and the small intestine was dissected away from the surrounding fascia. There was quite a bit of dense adhesions, and dissection of the ileostomy took about an hour to free it from the surrounding fascia. Once the entire loop of small bowel was freed, and could be pulled up through the wound, I lined up the bowel and created a side to side stapled anastomosis, with resection of the ileostomy portion of the bowel. Once the [id number] stapled anastomosis was created, the end was oversewn with running 3 0 PDS, and reinforce with Lemberted 3 0 silk sutures. The anastomosis was found to be patent, and no leaking occurred with a leak test which involved occluding 1 end of the bowel and compressing air and liquid stool across the anastomosis. Once anastomosis was completed it was dropped into the abdomen, and the abdominal wall was closed in layers with 0 PDS in the posterior fascia and rectus muscle, and a 2nd running layer in the anterior fascia using 0 PDS. Finally 0 Vicryl was used to reinforced with [id number] the anterior fascia. The fascia, and muscle layers were injected with generous local anesthetic using a total of 60 mL of 0.25% Marcaine with epi and 20 mL of Exparel for the entire case. A modified ellipse of skin was then excised, for ease of closure of the abdominal wall. I then closed the remaining incision somewhat loosely with 2 0 nylon suture interrupted in horizontal mattress style, to allow for drainage as needed, but to approximate the skin edges so that they can heal. At this point the skin was cleaned, and the wound was dressed with sterile 4x4s and secured with Medipore tape. This concluded the procedure. The patient was awakened from anesthesia and extubated. He wasthen transferred to the postanesthesia care unit in stable condition. He tolerated the procedure well. Needle sponge and instrument counts were correct x2 at the end of the case. Complications: none Post-operative Condition: stable Disposition: PACU
[2020-08-12] MEDS: LACTATED RINGERS 1,000 ML 100 ML IV (14:24)
[2020-08-12] MEDS: FAMOTIDINE 20 MG TABLET 40 MG PO (19:57)
[2020-08-12] MEDS: ATORVASTATIN 20 MG TABLET 80 MG PO (19:57)
[2020-08-13] VITALS (7 sets, daily range): BP systolic 133–181; BP diastolic 76–108; PULSE 50–75; RESP 15–20; TEMP 36.4–36.8; O2SAT 96–98
[2020-08-13] MEDS: LACTATED RINGERS 1,000 ML 100 ML IV ×3 (00:18→22:02)
--- NOTE | 2020-08-13 00:57 | PC.NURSE ---
Addendum entered by Melva Rosas R.N. 08/13/20 04:57: Complains of 5/10 sharp incisional pain; medicated with Tylenol (did not want stronger pain medication) and ice applied. Original Note: 0029 Patient is alert and oriented. Very loud in communication and effusive; has hx of TBI. Breath sounds CTA with RA sat of 97%. HRR. BP elevated at 144/86 consistent with previous readings. Denies nausea. BT hypoactive; while RN in room patient states I just passed gas. Abdomen is soft but mildly distended. Dressing to right abdomen is intact with shadow drainage noted. Denies dysuria, frequency or urgency with urination. Is independent with mobility; denies weakness or unsteadiness. Wearing bilateral calf SCD's. Complains of 2/10 headache but declines pain medication. Denies any abdominal pain/discomfort. Fall risk score is moderate. Declines to use abdominal binder and refusing to leave continuous oximeter on. HOB is elevated 30 degrees or greater.
[2020-08-13] MEDS: ACETAMINOPHEN 325 MG TABLET 975 MG PO ×3 (04:49→20:56)
[2020-08-13 06:04] LABS: Add Manual Diff / Slide Review NO; Basophils Absolute Auto 100 /uL (0-100); Basophils Percent Auto 0.6 % (0-2); Eosinophils Absolute Auto 0 /uL (0-450); Hemoglobin 13.5 g/dL (13.5-17.5); Lymphocytes Absolute Auto 1600 /uL (1100-4500); Lymphocytes Percent Auto 10.2 % (25-40); Mean Corpuscular HGB Conc 32.8 % (30-36); Mean Corpuscular Hemoglobin 29.7 PG (26-34); Mean Corpuscular Volume 90.6 fL (80-100); Monocytes Absolute Auto 1000 /uL (0-900); Monocytes Percent Auto 6.4 % (3-14); Neutrophils Absolute Auto 13300 /uL (1500-7000); Neutrophils Percent Auto 82.8 % (50-75); Platelet Count 128 X10^3/uL (150-400); Red Blood Cell Count 4.53 X10^6/uL (4.5-5.9); Red Cell Distribution Width 15.1 % (11.6-14.8); White Blood Cell Count 16.1 X10^3/uL (4.5-11.0)
[2020-08-13 06:09] LABS: BUN Creatinine Ratio 14.6 (6-22); Blood Urea Nitrogen 14 mg/dL (9-20); Carbon Dioxide 27 mmol/L (22-32); Chloride 105 mmol/L (98-107); Estimated Glomerular Filt Rate > 60.0 mL/min (>60); Glucose 127 mg/dL (70-100); HEMOLYSIS < 15 (0-50); Magnesium 1.5 mg/dL (1.6-2.3); Phosphorous 3.6 mg/dL (2.5-4.5); Potassium 4.4 mmol/L (3.4-5.1); Sodium 136 mmol/L (137-145)
[2020-08-13] MEDS: MAGNESIUM SULFATE 2 GM/50 ML PIGGYBACK IV (07:45)
[2020-08-13] MEDS: OXYCODONE IR 5 MG TABLET PO ×2 (07:59→14:55)
--- NOTE | 2020-08-13 08:55 | PM.PN.1 ---
Subjective Subjective Date Patient Seen: 08/13/20 Time Patient Seen: 08:55 Interval history: No acute events overnight. Per his nurse, he reports passing flatus, and flatus was witnessed by the nurse as well. Denies nausea. Was refusing pain med but took some oxycodone this AM. Did not sleep during the night, but sleeping now. Exam Vital Signs (past 8 hours): - 08/13/20 04:46 08/13/20 08:28 Temperature 98.0 F 97.6 F Pulse Rate 75 50 L Respiratory Rate 18 15 Blood Pressure 136/77 144/84 H Pulse Oximetry 97 97 Oxygen Delivery Method Room Air Oxygen Flow Rate 0 Narrative Exam Narrative: GENERAL: Alert, comfortable. Appears stated age. Answers questions promptly and appropriately. Vital signs noted. HENT: Normocephalic, atraumatic. Hearing intact. EYES: Conjunctiva pink, sclera white, no periorbital swelling. CARDIOVASCULAR: Regular rate. No pedal edema. RESPIRATORY: Non-tachypneic, breathing comfortably on room air. GASTROINTESTINAL: Abdomen soft, mildly distended, appropriate postoperative tenderness to palpation, dressing is saturated with serosanguineous drainage, sutures are in place GENITALURINARY: No flank tenderness. MUSCULOSKELETAL: Equal tone and mass bilaterally. SKIN: Warm, dry, soft, appropriate color for ethnicity. No other lesions, rashes, or wounds. NEURO: Alert and Oriented X 3. No gross sensory deficits, or cognitive issues. PSYCH: Appropriate affect and mood. Objective Labs Result Diagrams: 08/14/20 05:05 08/14/20 05:05 Labs: Laboratory Results - last 24 hr 08/13/20 08/13/20 05:45 05:45 WBC 16.1 H RBC 4.53 Hgb 13.5 Hct 41.0 MCV 90.6 MCH 29.7 MCHC 32.8 RDW 15.1 H Plt Count 128 L Neut % (Auto) 82.8 H Lymph % (Auto) 10.2 L [place] % (Auto) 6.4 Eos % (Auto) 0.0 L Baso % (Auto) 0.6 Neut # (Auto) 32033 H Lymph # (Auto) 1600 [place] # (Auto) 1000 H Eos # (Auto) 0 Baso # (Auto) 100 Sodium 136 L Potassium 4.4 Chloride 105 Carbon Dioxide 27 BUN 14 Creatinine 0.96 Estimated GFR > 60.0 BUN/Creatinine Ratio 14.6 Glucose 127 H Calcium 9.0 Phosphorus 3.6 Magnesium 1.5 L Assessment & Plan Assessment and plan (1) Tobacco abuse: Problem details: Ongoing counseling for smoking cessation. Pt was instructed about risks of smoking prior to surgery and resisted quitting. Status: None (2) Memory loss: Problem details: Unable to recall important details Status: None (3) S/P laparotomy: Status: Acute Assessment & Plan narrative: 59 yo man POD#1 s/p ileostomy takedown. Here for IV fluids, pain control, and management of return of bowel function post surgery. Plan: Advance to full liquid diet as tolerated Pain control Wound care daily and PRN dispo pending tolerates diet, passes stool, and pain is controlled COVID-19 COVID-19 status: Negative Result date/Date tested (Pos, Neg/Pending): 08/10/20 Time Spent With Patient Time with patient: 15-24 minutes Quality VTE Deep Vein Thrombosis/Pulmonary Embolism Present on Admission: No
[2020-08-13] MEDS: ENOXAPARIN 40 MG/0.4 ML SYRINGE SUBCUT (09:32)
[2020-08-13] MEDS: FAMOTIDINE 20 MG TABLET 40 MG PO ×2 (09:32→20:56)
[2020-08-13] MEDS: INFLUENZA VACCINE 0.5 ML SYRINGE IM (09:33)
[2020-08-13] MEDS: HYDROMORPHONE 0.5 MG INJ IV ×3 (10:25→21:55)
--- NOTE | 2020-08-13 11:03 | PC.NURSE ---
Addendum entered by Lino Shaffer R.N. 08/13/20 11:21: Patient reports relief from Dilaudid 0.5mg to 4-03/08. Says If I just had a beer to go with it, I'd be great. Original Note: Bowel tones active in all quadrants and patient is passing gas. Patient is having some burning pain 06/08. He states that he is in more pain than he was last night. Medicated w/ 5 mg of oxycodone and 0.5 mg of dilaudid, will see if this is sufficient for pain control and continue to monitor. Patient is up and moving ambulating in room and walking the hallways.
--- NOTE | 2020-08-13 16:09 | CM.IDA ---
Initial DCP Assessment Note Pt is a 59 yo male, resident of [place], now POD#1 for an ileostomy takedown w/ Dr Stevens PCP: Volodymyr Knight Payer: [employer]JOEL Patient w/ significant medical history to include bladder cancer, diverticulitis, appendectomy, tabacco abuse, and subarachnoid hemorrhage/TBI w/frontal lobe damage Met w/patient this afternoon to introduce role. Patient explains he has no censor d/t TBI, explains he lives alone on [address] but has bought a motor home so that he can live in [place]. Patient is close to his son, who lives in [place] w/his . Patient remembers prior admission at [facility] at which time SNF was the recommendation; and patient states he would need to be handcuffed to be taken there Patient in fairly good spirits today, very talkative, states he does not expect any needs from [facility] team, appreciative for the visit. Contact information left in case any DC needs or concerns arise before DC. According to LASHONDA Huynh, patient has been up walking halls independently. No needs expected from DC planning team although will remain available in case this changes. BELLA Magana
[2020-08-13] MEDS: DOCUSATE 100 MG CAPSULE PO (16:14)
--- NOTE | 2020-08-13 20:42 | PC.NURSE ---
B/P 166/102 left arm. Patient refused to retake again in other arm. RN notified.
[2020-08-13] MEDS: ATORVASTATIN 20 MG TABLET 80 MG PO (20:56)
--- NOTE | 2020-08-14 00:42 | PC.NURSE ---
Addendum entered by Melva Rosas R.N. 08/14/20 03:32: Patient out at desk stating he had another liquid red stool I hope it's just the cranberry juice. Noted red liquid in toilet. Measuring hat placed in order to better gauge amount/consistency. States incisional pain is 3/10 and requests morning scheduled dose of Tylenol as did not want to take narcotics at this time. Provided iced pack for comfort. Original Note: 2323 Patient is alert and oriented. Hx of TBI so presents with STM loss and some personality variations. Breath sounds diminished at bases with RA sat of 98%. HRR but bradycardic with rate in 50's. BP also elevated at 181/108 and has been trending upwards. Denies nausea. BT hypoactive but states he is still passing flatus and reports a red colored liquid stool on previous shift. Denies dysuria, frequency or urgency with urination; using urinal. Independent with mobility. Dressing to right abdomen is CDI; changed on previous shift. States incisional pain is 3/10 but declines pain medication; agreeable to ice pack for comfort. Bilateral calf SCD's applied but patient takes them on/off at will so reminded to ankle wave when not using SCD's. HOB is elevated to 30 degrees. Declines abdominal binder.
[2020-08-14] MEDS: ACETAMINOPHEN 325 MG TABLET 975 MG PO ×3 (03:30→18:53)
[2020-08-14 04:00] VITALS: BP 143/100; PULSE 56; RESP 18; TEMP 36.3; O2SAT 99
[2020-08-14 05:31] LABS: Add Manual Diff / Slide Review NO; Basophils Absolute Auto 0 /uL (0-100); Basophils Percent Auto 0.5 % (0-2); Eosinophils Absolute Auto 200 /uL (0-450); Hematocrit 38.8 % (41-53); Lymphocytes Absolute Auto 1500 /uL (1100-4500); Lymphocytes Percent Auto 18.1 % (25-40); Mean Corpuscular HGB Conc 33.5 % (30-36); Mean Corpuscular Hemoglobin 30.5 PG (26-34); Mean Corpuscular Volume 91.2 fL (80-100); Monocytes Absolute Auto 800 /uL (0-900); Monocytes Percent Auto 9.6 % (3-14); Neutrophils Absolute Auto 5800 /uL (1500-7000); Neutrophils Percent Auto 69.8 % (50-75); Platelet Count 122 X10^3/uL (150-400); Red Blood Cell Count 4.26 X10^6/uL (4.5-5.9); Red Cell Distribution Width 15.2 % (11.6-14.8); White Blood Cell Count 8.3 X10^3/uL (4.5-11.0)
[2020-08-14 05:48] LABS: BUN Creatinine Ratio 15.4 (6-22); Blood Urea Nitrogen 16 mg/dL (9-20); Carbon Dioxide 35 mmol/L (22-32); Chloride 104 mmol/L (98-107); Estimated Glomerular Filt Rate > 60.0 mL/min (>60); Glucose 91 mg/dL (70-100); HEMOLYSIS < 15 (0-50); Magnesium 2.2 mg/dL (1.6-2.3); Phosphorous 3.1 mg/dL (2.5-4.5); Potassium 4.5 mmol/L (3.4-5.1); Sodium 140 mmol/L (137-145)
[2020-08-14] MEDS: OXYCODONE IR 5 MG TABLET PO (07:46)
[2020-08-14] MEDS: FAMOTIDINE 20 MG TABLET 40 MG PO ×2 (07:46→20:44)
[2020-08-14] MEDS: ENOXAPARIN 40 MG/0.4 ML SYRINGE SUBCUT (07:46)
[2020-08-14 08:39] VITALS: BP 181/117; PULSE 53; RESP 16; TEMP 37.2; O2SAT 99
[2020-08-14] MEDS: LACTATED RINGERS 1,000 ML 100 ML IV (08:39)
--- NOTE | 2020-08-14 11:46 | P.PN_ITS ---
Subjective Subjective Date Patient Seen: 08/14/20 Time Patient Seen: 12:14 Interval history: The patient is a plastic in bloody stools during the night and this morning. He has not passed any more bloody stool since 7:00 a.m.. He is tolerating p.o. diet, and ambulating well. He feels his abdominal pain has improved since yesterday. Exam Vital Signs (past 8 hours): - 08/14/20 04:00 08/14/20 08:39 Temperature 97.4 F L 98.9 F Pulse Rate 56 L 53 L Respiratory Rate 18 16 Blood Pressure 143/100 H 181/117 H Pulse Oximetry 99 99 Oxygen Delivery Method Room Air Oxygen Flow Rate 0 Narrative Exam Narrative: GENERAL: Alert, comfortable. Appears stated age. Answers questions promptly and appropriately. Vital signs noted. HENT: Normocephalic, atraumatic. Hearing intact. EYES: Conjunctiva pink, sclera white, no periorbital swelling. CARDIOVASCULAR: Regular rate. No pedal edema. RESPIRATORY: Non-tachypneic, breathing comfortably on room air. GASTROINTESTINAL: Abdomen soft, minimally distended, appropriate postoperative tenderness to palpation, dressing has mild serosanguineous drainage, no incisional erythema GENITALURINARY: No flank tenderness. MUSCULOSKELETAL: Equal tone and mass bilaterally. SKIN: Warm, dry, soft, appropriate color for ethnicity. No other lesions, rashes, or wounds. NEURO: Alert and Oriented X 3. No gross sensory deficits, or cognitive issues. PSYCH: Appropriate affect and mood. Objective Labs Result Diagrams: 08/14/20 05:05 08/14/20 05:05 Labs: Laboratory Results - last 24 hr 08/14/20 08/14/20 05:05 05:05 WBC 8.3 RBC 4.26 L Hgb 13.0 L Hct 38.8 L MCV 91.2 MCH 30.5 MCHC 33.5 RDW 15.2 H Plt Count 122 L Neut % (Auto) 69.8 Lymph % (Auto) 18.1 L [place] % (Auto) 9.6 Eos % (Auto) 2.0 Baso % (Auto) 0.5 Neut # (Auto) 5800 Lymph # (Auto) 1500 [place] # (Auto) 800 Eos # (Auto) 200 Baso # (Auto) 0 Sodium 140 Potassium 4.5 Chloride 104 Carbon Dioxide 35 H BUN 16 Creatinine 1.04 Estimated GFR > 60.0 BUN/Creatinine Ratio 15.4 Glucose 91 Calcium 9.0 Phosphorus 3.1 Magnesium 2.2 Assessment & Plan Assessment and plan (1) Tobacco abuse: Problem details: Ongoing counseling for smoking cessation. Pt was instructed about risks of smoking prior to surgery and resisted quitting. Status: None (2) Memory loss: Problem details: Unable to recall important details Status: None (3) S/P laparotomy: Status: Acute Assessment & Plan narrative: 59 yo man POD#2 s/p ileostomy takedown. Here for IV fluids, pain control, and management of return of bowel function post surgery. He has had several bloody stools, likely due to an anastomotic bleed. I have explained to the patient that these are usually self-limited, and do not require transfusions or return to the operating room. However, we will keep him in the hospital until his hemoglobin is stable, and he stops passing blood in the stool. Plan: Advance to low residual as tolerated Pain control Wound care daily and PRN dispo pending hemoglobin stable, and no further passage of blood in the stool COVID-19 COVID-19 status: Negative Result date/Date tested (Pos, Neg/Pending): 08/10/20 Time Spent With Patient Time with patient: 15-24 minutes Quality VTE Deep Vein Thrombosis/Pulmonary Embolism Present on Admission: No
[2020-08-14 12:00] VITALS: BP 170/80; PULSE 80; RESP 15; TEMP 37; O2SAT 100
[2020-08-14 16:08] VITALS: BP 168/99; PULSE 58; RESP 18; TEMP 36.8; O2SAT 99
[2020-08-14 20:26] VITALS: BP 138/107; PULSE 67; RESP 16; TEMP 37; O2SAT 98
[2020-08-14] MEDS: ATORVASTATIN 20 MG TABLET 80 MG PO (20:44)
[2020-08-14 23:40] VITALS: BP 141/94; PULSE 73; RESP 20; TEMP 36.6; O2SAT 97
--- NOTE | 2020-08-15 00:37 | PC.NURSE ---
Addendum entered by Melva Rosas R.N. 08/15/20 05:23: Had 100cc dark red stool at start of shift and now had a very small amount soft maroon colored stool. Original Note: 2326 Patient is alert and oriented but intermittently agitated and anxious. Breath sounds diminished at bases and with expiratory rhonchi; RA sat 97%. HRR. BP continues to trend high at 141/94. Denies nausea. BT present and abdomen is soft; continues to put out dark red liquid/loose stools but in smaller amounts. Denies dysuria, frequency or urgency with urination. Independent with mobility. Refusing SCD's tonight but is restless; getting in and out of bed frequently. Complains of muscle pain around incisional area but declines pain medication or ice pack. Dressing intact with serous drainage noted and outlined. Fall risk score is moderate; patient is steady on feet. HOB is elevated 30 degrees. Declines use of abdominal binder.
[2020-08-15 03:45] VITALS: BP 141/101; PULSE 65; RESP 16; TEMP 36.9; O2SAT 94
[2020-08-15 05:46] LABS: Add Manual Diff / Slide Review NO; Basophils Absolute Auto 0 /uL (0-100); Basophils Percent Auto 0.8 % (0-2); Eosinophils Absolute Auto 200 /uL (0-450); Eosinophils Percent Auto 3.5 % (2-4); Hematocrit 37.5 % (41-53); Hemoglobin 12.4 g/dL (13.5-17.5); Lymphocytes Absolute Auto 1900 /uL (1100-4500); Lymphocytes Percent Auto 30.8 % (25-40); Mean Corpuscular Hemoglobin 29.9 PG (26-34); Mean Corpuscular Volume 90.7 fL (80-100); Monocytes Absolute Auto 900 /uL (0-900); Monocytes Percent Auto 14.5 % (3-14); Neutrophils Absolute Auto 3100 /uL (1500-7000); Neutrophils Percent Auto 50.4 % (50-75); Platelet Count 128 X10^3/uL (150-400); Red Blood Cell Count 4.13 X10^6/uL (4.5-5.9); Red Cell Distribution Width 14.9 % (11.6-14.8); White Blood Cell Count 6.2 X10^3/uL (4.5-11.0)
[2020-08-15 07:00] VITALS: BP 165/118; PULSE 67; RESP 20; TEMP 36.8; O2SAT 99
[2020-08-15] MEDS: ACETAMINOPHEN 325 MG TABLET 975 MG PO ×3 (08:09→20:21)
[2020-08-15] MEDS: FAMOTIDINE 20 MG TABLET 40 MG PO ×2 (08:10→20:20)
[2020-08-15] MEDS: SODIUM CHLORIDE 0.9% FLUSH 10 ML IV ×2 (08:10→20:21)
--- NOTE | 2020-08-15 09:49 | P.PN_ITS ---
Subjective Subjective Date Patient Seen: 08/15/20 Time Patient Seen: 09:49 Interval history: Pt still passing bloody stool overnight. Pain well controlled with Tylenol. Denies nausea/vomiting. Exam Vital Signs (past 8 hours): - 08/15/20 03:45 08/15/20 07:00 Temperature 98.4 F 98.2 F Pulse Rate 65 67 Respiratory Rate 16 20 Blood Pressure 141/101 H 165/118 H Pulse Oximetry 94 99 Oxygen Delivery Method Room Air Oxygen Flow Rate 0 Narrative Exam Narrative: GENERAL: Alert, comfortable. Appears stated age. Answers questions promptly and appropriately. Vital signs noted. HENT: Normocephalic, atraumatic. Hearing intact. EYES: Conjunctiva pink, sclera white, no periorbital swelling. CARDIOVASCULAR: Regular rate. No pedal edema. RESPIRATORY: Non-tachypneic, breathing comfortably on room air. GASTROINTESTINAL: Abdomen soft, minimally distended, appropriate postoperative tenderness to palpation, dressing has mild serosanguineous drainage, no incisional erythema GENITALURINARY: No flank tenderness. MUSCULOSKELETAL: Equal tone and mass bilaterally. SKIN: Warm, dry, soft, appropriate color for ethnicity. No other lesions, rashes, or wounds. NEURO: Alert and Oriented X 3. No gross sensory deficits, or cognitive issues. PSYCH: Appropriate affect and mood. Objective Labs Result Diagrams: 08/15/20 05:00 08/14/20 05:05 Labs: Laboratory Results - last 24 hr 08/15/20 05:00 WBC 6.2 RBC 4.13 L Hgb 12.4 L Hct 37.5 L MCV 90.7 MCH 29.9 MCHC 33.0 RDW 14.9 H Plt Count 128 L Neut % (Auto) 50.4 Lymph % (Auto) 30.8 [place] % (Auto) 14.5 H Eos % (Auto) 3.5 Baso % (Auto) 0.8 Neut # (Auto) 3100 Lymph # (Auto) 1900 [place] # (Auto) 900 Eos # (Auto) 200 Baso # (Auto) 0 Assessment & Plan Assessment and plan (1) Tobacco abuse: Problem details: Ongoing counseling for smoking cessation. Pt was instructed about risks of smoking prior to surgery and resisted quitting. Status: None (2) Memory loss: Problem details: Unable to recall important details Status: None (3) S/P laparotomy: Status: Acute Assessment & Plan narrative: 59 yo man POD#3 s/p ileostomy takedown. He is having some bloody stool, and a hgb drop from 13.5 to 12.4. Most likely explanation is anastomotic bleeding, which is almost always self limited, and rarely requires return to the OR or transfusion. Because of the patient's comorbidities, I can not safely send him home until his Hgb stabilizes and his bloody stool output subsides. Ambulate frequently as tolerated page MD if TBI symptoms become difficult to manage Advance to general diet Pain control PRN Wound care daily and PRN dispo pending hemoglobin stable, and no further passage of blood in the stool COVID-19 COVID-19 status: Negative Result date/Date tested (Pos, Neg/Pending): 08/10/20 Time Spent With Patient Time with patient: 15-24 minutes Quality VTE Deep Vein Thrombosis/Pulmonary Embolism Present on Admission: No
[2020-08-15 12:30] VITALS: BP 152/99; PULSE 84; RESP 20; TEMP 36.7; O2SAT 99
[2020-08-15] MEDS: PSYLLIUM HUSK 1 PACKET PO ×2 (14:02→20:21)
[2020-08-15 16:15] VITALS: BP 173/107; PULSE 64; RESP 20; TEMP 36.6; O2SAT 97
[2020-08-15] MEDS: ATORVASTATIN 20 MG TABLET 80 MG PO (20:20)
[2020-08-15 20:23] VITALS: BP 163/98; PULSE 71; RESP 20; TEMP 36.7
[2020-08-16] VITALS: BP 155/96; PULSE 65; RESP 16; O2SAT 96
--- NOTE | 2020-08-16 01:40 | PC.NURSE ---
Addendum entered by Melva oRsas R.N. 08/16/20 05:42: States pain is currently 4/10 and requesting Tylenol. Medicated with morning scheduled dose. States he did sleep well. Addendum entered by eMlva Rosas R.N. 08/16/20 05:26: Has been up and down during the night but when patient checks done has appeared to be sleeping. Reports he has had no stools during this shift. Lab here to draw blood. Original Note: 0000 Patient seen and assessed. Is alert and oriented; calm at this time but upset about being wakened and concerned he will not be able to get back to sleep. Expresses I want to go home stating he will stay in a local hotel if necessary but wants to discharge today. Breath sounds with expiratory wheezes in bilateral upper lobes and diminished at bases; RA sat 96%. HRR. Continues to have an elevated BP and was 155/96 at time assessed. BT present; abdomen soft but still mildly distended. Dressing to right abdomen is intact with serous drainage again noted (apparently new dressing was applied yesterday) and again outlined. Denies dysuria, frequency or urgency with urination. Had last stool at 1740 and was documented as being black in color; patient reports no stools since that time. Is independent with mobility. Declines use of SCD's but is in/out of bed frequently. Fall risk score is moderate. Denies pain. Declines use of abdominal binder.
[2020-08-16 05:05] VITALS: BP 166/104; PULSE 62; RESP 15; TEMP 36.4; O2SAT 96
[2020-08-16] MEDS: ACETAMINOPHEN 325 MG TABLET 975 MG PO (05:33)
[2020-08-16 05:34] LABS: Add Manual Diff / Slide Review NO; Basophils Absolute Auto 0 /uL (0-100); Basophils Percent Auto 0.6 % (0-2); Eosinophils Absolute Auto 300 /uL (0-450); Eosinophils Percent Auto 4.1 % (2-4); Hematocrit 38.8 % (41-53); Hemoglobin 12.9 g/dL (13.5-17.5); Lymphocytes Absolute Auto 2000 /uL (1100-4500); Lymphocytes Percent Auto 30.4 % (25-40); Mean Corpuscular HGB Conc 33.3 % (30-36); Mean Corpuscular Hemoglobin 30.1 PG (26-34); Mean Corpuscular Volume 90.4 fL (80-100); Monocytes Absolute Auto 900 /uL (0-900); Monocytes Percent Auto 14.3 % (3-14); Neutrophils Absolute Auto 3300 /uL (1500-7000); Neutrophils Percent Auto 50.6 % (50-75); Platelet Count 132 X10^3/uL (150-400); Red Cell Distribution Width 14.6 % (11.6-14.8); White Blood Cell Count 6.6 X10^3/uL (4.5-11.0)
--- NOTE | 2020-08-16 06:32 | P.DS_ITS ---
History of Present Illness History of Present Illness Chief complaint: Ileostomy closure Narrative: This patient is here for ileostomy takedown. To review, this is a 59-year-old man with history of bladder cancer, diverticulosis, traumatic brain injury, appendectomy, melanoma, TURBT, hypertension, hyperlipidemia, diverticulitis and colovesicular fistula status post colovesicular fistula takedown, sigmoid colectomy and diverting ileostomy. His colon resection was done in December, and is here to have ileostomy takedown. He has had a colonoscopy and barium enema since his last visit. He is now prepared for ileostomy takedown. He had a groin US to confirm left inguinal hernia. Interval studies: LLQ US: bowel containing inguinal hernia Colonoscopy: no polyps; diversion colitis BE: no leak Interval events: He reports nothing new since his last visit to see me in June. He has had to upsize his ostomy appliance in the past week due to enlarging stoma. He denies any parastomal bulging, or bulging from his midline incisional scar. He does have the left inguinal hernia, but he feels it is not bothering him too much. ROS: Thirteen system review is negative other than as mentioned below and in HPI. PE: GENERAL: Well groomed and cooperative. Appears non-toxic. Appears stated age. HENT: Normocephalic, atraumatic. Hearing intact. Oral mucosa is pink and moist. EYES: Conjunctiva pink, sclera white, no periorbital swelling. CARDIOVASCULAR: Regular rate. No pedal edema. RESPIRATORY: Non tachypneic, breathing comfortably on room air. GASTROINTESTINAL: Abdomen soft and non-distended; ostomy pink, patent, productive. Lower midline incision well healed without hernia. GENITALURINARY: No flank tenderness. Left groin inguinal floor laxity MUSCULOSKELETAL: Equal tone and mass bilaterally. SKIN: Warm, dry, soft, appropriate color for ethnicity. No other lesions, rashes, or wounds. NEURO: Alert and Oriented X 3. No gross sensory deficits, he does have short- term memory problems PSYCH: Appropriate affect and mood. Discharge Providers Provider Date of admission: 08/12/20 09:15 Discharge Date: 08/16/20 Primary care physician: Volodymyr Knight MD Consults: 08/12/20 10:04 Consult to Respiratory Therapy Evaluate & Treat Comment: Physician Instructions: Evaluate and treat 08/12/20 14:13 Consult to Discharge Planning Routine Comment: Discharge provider: Venessa Stevens MD Summary Hospital Course Discharge Diagnosis: s/p ileostomy takedown, self limited anastomotic bleed Hospital Course: The patient was admitted for ileostomy takedown. His surgery went well, and he was transfer to the acute care unit. He had appropriate return of bowel functon of the next 24-48 hours, but began passing blood in the stool and had a hgb drop of 1g from 13.5 to 12.4. This was attributed to a likely anastomotic bleed, which resolved on its own by post op day 4, evidenced by his increasing hgb to 12.9 and change in stool from bloody to dark maroon /black without tyra blood. His pain was well controlled with Tylenol, he was tolerating a diet, and passing gas and stool. He was then deemed stable for discharge and was discharged home with his adult son. Status at Discharge Cognitive/behavioral status at discharge: at baseline, oriented Functional status at discharge: independent ambulation Overall status at discharge: patient is progressing back to baseline Time Spent with Patient Time spent: Greater than 30 minutes Exam Vital Signs (past 8 hours): - 08/16/20 00:00 08/16/20 05:05 Temperature 97.6 F Pulse Rate 65 62 Respiratory Rate 16 15 Blood Pressure 155/96 H 166/104 H Pulse Oximetry 96 96 Oxygen Delivery Method Room Air Oxygen Flow Rate 0 Narrative Exam Narrative: GENERAL: Alert, comfortable. Appears stated age. Answers questions promptly and appropriately. Vital signs noted. HENT: Normocephalic, atraumatic. Hearing intact. EYES: Conjunctiva pink, sclera white, no periorbital swelling. CARDIOVASCULAR: Regular rate. No pedal edema. RESPIRATORY: Non-tachypneic, breathing comfortably on room air. GASTROINTESTINAL: Abdomen soft, minimally distended, appropriate postoperative tenderness to palpation, dressing has mild serosanguineous drainage, no incisional erythema GENITALURINARY: No flank tenderness. MUSCULOSKELETAL: Equal tone and mass bilaterally. SKIN: Warm, dry, soft, appropriate color for ethnicity. No other lesions, rashes, or wounds. NEURO: Alert and Oriented X 3. No gross sensory deficits, or cognitive issues. PSYCH: Appropriate affect and mood. Objective Labs Result Diagrams: 08/16/20 05:16 10/16/20 05:05 Labs: Laboratory Results - last 24 hr 08/16/20 05:16 WBC 6.6 RBC 4.30 L Hgb 12.9 L Hct 38.8 L MCV 90.4 MCH 30.1 MCHC 33.3 RDW 14.6 Plt Count 132 L Neut % (Auto) 50.6 Lymph % (Auto) 30.4 [place] % (Auto) 14.3 H Eos % (Auto) 4.1 H Baso % (Auto) 0.6 Neut # (Auto) 3300 Lymph # (Auto) 2000 [place] # (Auto) 900 Eos # (Auto) 300 Baso # (Auto) 0 Discharge Assessment & Plan Assessment and Plan Assessment: S/p ileostomy takedown, self limited anastomotic bleed Plan of Treatment: Discharge home with Regular diet, TYlenol for pain, follow up in two weeks, lifting/activity restrictions for six weeks Discharge Plan Discharge Plan Patient Disposition: Home Provider Discharge Comment: You had a surgery to take down your diverting ileostomy, and reconnect your bowel continuity. You were kept in the hospital for an extra day because of blood in the stool, which was due to a bleeding vessel where your bowel was reconnected. Once this bleeding stops, it does not usually start again. If have sudden copious bleeding that won't stop, redness around your incision, opening of your incision, copious drainage from the incision, fevers, nausea, vomiting, no passage of stool or gas for 24 hours, chest pain, shortness of breath, other concerning symptoms please contact [facility] and speak with the doctor archivist economic history, and contact your primary doctor on [place]. Over the next few weeks your colon will be getting used to functioning again. You may have constipation or diarrhea during this time. If you have uncontrolled loose stool, you may use Imodium sparingly. If you are constipated, you will need to use stool softeners and laxatives such as Docusate and Miralax. You may use Metamucil one to two times daily to help with either constipation or diarrhea. You may take over the counter pain medication as needed. Use your abdominal binder to help relieve abdominal wall discomfort. Keep a dry dressing on your incision, and change it each day. Discharge orders & Medications Prescriptions: Continued atorvastatin [Lipitor] 80 MG tablet 80 mg PO HS Qty: 90 RF: 1 acetaminophen 325 mg Tablet 975 mg PO TID MDD 9 tabs Qty: 120 RF: 0 loperamide 2 mg Capsule 4 mg PO BID RF: 0 famotidine 20 mg tablet 40 mg PO BID RF: 0 acyclovir 800 mg Tablet 800 mg PO DAILY PRN (Reason: Cold Sore/Herpes) RF: 0 Follow up/Referrals: Venessa Stevens MD [Physician] - Volodymyr Knight MD [Primary Care Provider] - Diet/Activity/Treatments Diet: Diet as Tolerated Activity: Stay active, take walks. It is ok to go up and down stairs. Avoid lifting/pushing/pulling over 10 lbs, avoid straining the abdomen through constipation, sit-ups, core workouts, anything that makes you bear down and strain. You may shower and get the incision wet, but do not soak in a pool or tub until after your follow up visit. Pat it dry after showering and cover with a clean dry dressing. Use your abdominal binder as tolerated to help reduce pain. If it does not help, you do not have to wear it. Skin/Wound/Dressing Care Report to your healthcare provider any signs of infection, such as:: chills, fever, night sweats, increased pain, unusual drainage and unusual redness Visit Report/Discharge Packet Instructions: Essential Hypertension, DI for Heart Failure, How to Prevent Falls, DI for Prescription Opioid Use, DI for Colostomy or Ileostomy Reversal, [facility]: Wound Care Stand Alone Forms: Surgery Discharge Visit Report Forms: Congestive Heart Failure, Patient Portal/API, Stroke Signs & Symptoms Discharge Data Primary Care Provider: Volodymyr Knight Discharges patient from system. Discharge Date/Time: 08/16/20 09:50 Quality VTE Deep Vein Thrombosis/Pulmonary Embolism Present on Admission: No
[2020-08-16] MEDS: FAMOTIDINE 20 MG TABLET 40 MG PO (08:39)
[2020-08-16] MEDS: PSYLLIUM HUSK 1 PACKET PO (08:39)
--- NOTE | 2020-08-16 09:47 | PC.NURSE ---
Day shift: Paperwork signed and all questions answered. Pt has all persoanl belongings. No new MD scripts. Pt instructed how to change his dressing and he has put new dressing on himself. Taken to car driven by his son by KRISH.
== END 2020-08-16 09:50 | disposition home or self-care (01) | DRG 330 ==
PROVIDERS: Admitting Provider Surgery; PCP Family Medicine; Referring Provider Family Medicine; Visit Provider Surgery
PROC: 0DBB0ZZ Excision of Ileum, Open Approach (ICD-10-PCS; CPT 44620; principal; 2020-08-12 11:15)
DX: Z43.2 Encounter for attention to ileostomy (principal); K92.1 Melena; I10 Essential (primary) hypertension; E78.5 Hyperlipidemia, unspecified; F17.210 Nicotine dependence, cigarettes, uncomplicated; R41.844 Frontal lobe and executive function deficit; J45.30 Mild persistent asthma, uncomplicated; Z85.51 Personal history of malignant neoplasm of bladder
CPT/HCPCS: 36415; 44625; 80048; 83735; 84100; 85025; 90471; 90656; 94762; 99406; A9270; J0330; J1100; J1170; J1650; J2250; J2405; J2543; J2704; J3010; Q2038

== ENCOUNTER → 2020-08-27 09:25 | Outpatient (CLI) | payer MEDICARE, MEDICAID, SELFPAY ==
[2020-08-14 16:25] VITALS: BMI 29.0
[2020-08-27 09:47] LABS: Hematocrit 39.1 % (41-53); Hemoglobin 12.5 g/dL (13.5-17.5); Mean Corpuscular HGB Conc 31.9 % (30-36); Mean Corpuscular Hemoglobin 29.3 PG (26-34); Mean Corpuscular Volume 91.7 fL (80-100); Platelet Count 228 X10^3/uL (150-400); Red Blood Cell Count 4.26 X10^6/uL (4.5-5.9); Red Cell Distribution Width 14.8 % (11.6-14.8); White Blood Cell Count 8.6 X10^3/uL (4.5-11.0)
== END ==
PROVIDERS: PCP Family Medicine; Referring Provider Surgery; Visit Provider Surgery
DX: D64.9 Anemia, unspecified (principal)
CPT/HCPCS: 36415; 85027